=== PATIENT | female | born 1955 | race Two or more races ===

== ENCOUNTER 2020-03-29 09:15 | Outpatient (REF) | payer MEDICARE, MEDICAID, SELFPAY ==
--- NOTE | 2020-03-29 09:14 | US_ITS ---
EXAMINATION: US THYROID CLINICAL INFORMATION: Nontoxic single thyroid nodule. COMPARISON: Ultrasound soft tissue head/neck thyroid dated 06/30/2019. TECHNIQUE: Linear transducer escobar-scale and color Doppler examination with attention to the region of the thyroid. FINDINGS: SIZE: Measurements of the thyroid lobes and nodules are given in sagittal, anteroposterior and transverse dimensions respectively. Right Thyroid Lobe: 5.5 x 2.0 x 2.0 cm, volume 11.5 mL. Previously 5.0 x 2.2 x 1.9 cm, volume 10.9 mL. Parenchyma: The gland echotexture is homogeneous. Thyroid vascularity is normal. Left Thyroid Lobe: 5.5 x 1.4 x 1.8 cm, volume 7.2 mL. Previously 5.0 x 1.8 x 1.5 cm, volume 7.1 mL. Parenchyma: The gland echotexture is homogeneous. Thyroid vascularity is normal. Isthmus: 0.4 cm in maximum AP dimension. Previously 0.5 cm. RIGHT THYROID LOBE: There are greater than 4 nodules seen. 1. Location: Middle. Size: 0.8 x 0.4 x 0.6 cm. Previous: 0.6 x 0.4 x 0.5 cm. Nodule characteristics: Cystic/hypoechoic with smooth margins, punctate calcifications, and peripheral blood flow. This likely corresponds to a colloid cyst 2. Location: Middle. Size: 1.9 x 1.4 x 1.5 cm. Previous: 1.8 x 1.3 x 1.4 cm. Nodule characteristics: Large, primarily cystic nodule with smooth margins and no internal blood flow. There is a complex mural component along the medial/anterior wall. 3. Location: Inferior. Size: 0.6 x 0.5 x 0.6 cm. Previous: 0.6 x 0.5 x 0.5 cm. Nodule characteristics: Colloid cyst with smooth margins, chondroid type calcifications, and no internal blood flow.. 4. Location: Inferior/medial. Size: 0.6 x 0.5 x 0.5 cm. Previous: 0.6 x 0.5 x 0.5 cm. Nodule characteristics: Colloid cyst with smooth margins, no internal blood flow, and punctate. Colloid type seconds ISTHMUS: There is 1 nodule seen. 1. Location: Right inferior. Size: 1.1 x 0.6 x 0.8 cm. Previous: 1.0 x 0.5 x 0.9 cm. Nodule characteristics: Hypoechoic with smooth margins and internal blood flow on color Doppler. LEFT THYROID LOBE: There are greater than 4 nodules seen. 1. Location: Superior. Size: 0.7 x 0.4 x 0.4 cm. Previous: 0.7 x 0.5 x 0.6 cm. Nodule characteristics: Simple cyst/anechoic with smooth margins and no internal blood flow.. 2. Location: Superior. Size: 0.7 x 0.4 x 0.6 cm. Previous: 0.7 x 0.4 x 0.6 cm. Nodule characteristics: Spongiform type nodule with a mixed cystic and solid appearance, hypoechoic, with smooth margins and peripheral blood flow. 3. Location: Superior/middle. Size: 1.1 x 0.7 x 0.9 cm. Previous: 0.9 x 0.6 x 0.9 cm. Nodule characteristics: Hypoechoic with small internal cystic foci, smooth margins, and peripheral blood flow.. 4. Location: Inferior. Size: 0.6 x 0.3 x 0.4 cm. Previous: 0.5 x 0.3 x 0.4 cm. Nodule characteristics: Hypoechoic/complex with smooth margins and internal blood flow on color Doppler.. NODES: A lymph node is noted just inferior to the isthmus, measuring 9 mm in greatest transverse dimension, within normal limits.. IMPRESSION: Multinodular goiter. Most nodules have the appearance of colloid cysts and are not significantly changed in size. The 1.1 cm hypoechoic nodule in the superior/interpolar region of the left gland is increased in size from prior (0.9 cm) meets criteria for recommendation of fine-needle aspiration. Various management parameters for solitary thyroid nodules are in the literature. According to the latest 2016 [place] [employer] guidelines, recommendations for thyroid nodules are as follows: Benign: Purely cystic nodules (no solid component). Estimated risk of malignancy < 1%. Recommendation: No biopsy or ultrasound follow up required. Very low suspicion: Spongiform or partially cystic nodules without any of the sonographic features described in low, intermediate or high suspicions patterns. Estimated risk of malignancy < 3%. Recommendation: Consider FNA at > 2 cm. Observation without FNA is also a reasonable option. Recommend repeat ultrasound in 24 months for nodules measuring greater than 1 cm. Nodule measuring less than 1 cm do not require ultrasound follow up. Low suspicion: Isoechoic or hyperechoic solid nodule, or partially cystic nodule with eccentric solid areas, without microcalcification, irregular margin or extrathyroidal extension, or taller than wide shape. Estimated risk of malignancy 5-10%. Recommendation: FNA at > 1.5 cm. Recommend repeat ultrasound in 12-24 months for nodules measuring less than 1.5 cm. Intermediate suspicion: Hypoechoic solid nodule with smooth margins without microcalcification, extrathyroidal extension, or taller than wide shape. Estimated risk of malignancy 10-20%. Recommendation: FNA at > 1 cm. Recommend repeat ultrasound in 12-24 months for nodules measuring less than 1 cm.
== END 2020-03-29 09:16 | disposition home or self-care (01) ==
LOC: HO.US 09:15
PROVIDERS: Visit Provider Nurse Practitioner Primary Care
DX: E04.1 Nontoxic single thyroid nodule (principal)
CPT/HCPCS: 76536

== ENCOUNTER 2020-04-07 14:02 | Emergency (ER) | payer MEDICARE, MEDICAID, SELFPAY ==
--- NOTE | 2020-04-07 14:15 | XR_ITS ---
EXAMINATION: XR ANKLE, LEFT XR FOOT, LEFT CLINICAL INFORMATION: Pain status post fall COMPARISON: Left foot radiograph 11/12/2006 TECHNIQUE: 3 views of the left ankle and left foot combined on 5 images. FINDINGS: Left ankle: Multiple wire fragments are seen at the level of the Achilles tendon. The ankle mortise is symmetric. Without fracture or dislocation seen. Left foot: Posterior and plantar calcaneal spurs are demonstrated. There are hypertrophic changes seen at the dorsum of the midfoot. No definite fracture is seen. A small avulsion fracture would be difficult to exclude. Increased hallux valgus is seen at the first digit with mild degenerative change. Moderate soft tissue swelling medial to the first MTP joint. IMPRESSION: 1. Unremarkable left ankle. 2. Moderate soft tissue swelling dorsal to the midfoot. A subtle avulsion fracture would be difficult to exclude on the basis of this study. 3. Increased hallux valgus and bunion formation at the first MTP joint with soft tissue swelling.
[2020-04-07 14:22] VITALS: PULSE 81; RESP 16; TEMP 36.8; O2SAT 97; BMI 30.2
--- NOTE | 2020-04-07 14:35 | ED_ITS ---
HPI - Extremity Injury (Lower) General Chief Complaint: Extremity Injury, Lower Stated Complaint: fall Time Seen by Provider: 04/07/20 14:14 Source: patient Mode of arrival: ambulatory Limitations: no limitations History of Present Illness HPI Narrative: pain in bruising to the top of the left foot with slight swel ling to the ankle since yesterday after falling. States she missed a step and fell forward onto it. There was no other injury. No prodromal symptoms. No knee hip torso neck head injury. MD complaint: ankle injury Onset (ago): day(s) Place: home Severity: moderate Relieving factors: immobilization Exacerbating factors: nothing Other symptoms: none Related Data Allergies Allergy/AdvReac Type Severity Reaction Status Date / Time cyclobenzaprine Allergy Unknown Rash Verified 04/07/20 14:27 ibuprofen [From Motrin] Allergy Unknown RASH Unverified 03/08/20 17:00 lisinopril [LISINOPRIL] Allergy Unknown COUGH, Unverified 03/08/20 17:00 coughing Flexeril Allergy Unknown Rash Uncoded 04/07/20 14:27 From FLEXERIL Allergy Unknown FELT SICK Uncoded 03/08/20 17:00 - LEGS WEAK,BLOODY URINE Review of Systems Review of Systems: Constitutional: No Weight loss, No Fever, No Chills, No Night Sweats, No Fatigue, No Malaise ENT/Mouth: No Hearing loss, No Ear Pain, No Nasal Congestion, No Sinus Pain, No Hoarseness, No sore throat, No Rhinorrhea, No Swallowing Difficulty Eyes: No Eye Pain, No Swelling, No Redness, No Foreign Body, No Discharge, No Vision Changes Cardiovascular: No Chest Pain, No SOB, No Dyspnea on Exertion, No Orthopnea, No Edema, No Palpitations Respiratory: No Cough, No Sputum, No Wheezing, No Dyspnea Gastrointestinal: Genitourinary: no irregular bleeding, No Dysuria, No Urinary Frequency, No Hematuria, No Urinary Incontinence, No Urgency, No Flank Pain, No Urinary Flow Changes, No Hesitancy Musculoskeletal: No joint pain, No Myalgias, No Joint Swelling as noted per HPI Skin: No Skin Lesions, No rash Neuro: No Weakness, No Numbness, No Paresthesias, No Loss of Consciousness, No Dizziness, No Headache Psych: No Social Issues Heme/Lymph: No Bruising, No Bleeding,No Lymphadenopathy Endocrine: No Polyuria, No Polydipsia, No Temperature Intolerance Yes all other systems are reviewed and are negative [facility] Past Medical History Attestation statement: The following information was validated with the patient. Medical History (Updated 04/07/20 @ 15:06 by Leonardo Ambrose NP) No known health problems Social History Social History Advance Directives: No Advance Directives Information Provided: Yes Physical Exam Vital Signs: Vital Signs: Vital Signs Temp Pulse Resp Pulse Ox 04/07/20 14:22 98.2 F 81 16 97 Body Mass Index 30.2 Reviewed Const: General: cooperative and healthy appearing; No acute distress or intoxicated appearing Nutritional Appearance: average body habitus Orientation/consciousness: patient oriented x3 HENMT: Head: Yes normal to inspection Ears: hearing grossly normal bilaterally Chest: Chest palpation & inspection: normal inspection of the chest Resp: Effort & Inspection: normal respiratory effort Cardio: Jugular venous distension: no JVD : General: Yes no CVA tenderness Back/Spine/Pelvis: Back: no CVA tenderness Skin: General skin exam: no rashes or lesions noted Neuro: General: patient oriented x3 Extrem: General: Yes normal to inspection Ankle/foot/toe images: 1. Slight swelling/ecchymosis Procedures Orthopedic Splinting/Casting Injury #1: Side: left Lower Extremity Injury Location: foot Lower Extremity Immobilizer: post-op shoe ( orthopedic shoe) Additional Comments: patient has her own cane MDM - Extremity Injury (Lower) Differential Diagnosis Differential diagnosis: Likely ankle sprain and strain and ankle fracture ( foot fracture, contusion); Unlikely acute internal derangement of knee, fracture of femur, fracture of hip and puncture wound of foot Imaging Data foot/ankle x-ray: Radiologist's impression: [place] [id number] XRay Report Signed Patient: Rickey Irwin#: [id number] : 5Acct:[id number] Age/Sex: 64 / FADM Date: 04/07/20 Loc: HO.ED Attending Dr: Ordering Physician: Leonardo Ambrose NP Date of Service: 04/07/20 Procedure(s): XR ankle LT min 3V Accession Number(s): [id number] cc: Leonardo Ambrose NP~ EXAMINATION: XR ANKLE, LEFT XR FOOT, LEFT CLINICAL INFORMATION: Pain status post fall COMPARISON: Left foot radiograph 11/12/2006 TECHNIQUE: 3 views of the left ankle and left foot combined on 5 images. FINDINGS: Left ankle: Multiple wire fragments are seen at the level of the Achilles tendon. The ankle mortise is symmetric. Without fracture or dislocation seen. Left foot: Posterior and plantar calcaneal spurs are demonstrated. There are hypertrophic changes seen at the dorsum of the midfoot. No definite fracture is seen. A small avulsion fracture would be difficult to exclude. Increased hallux valgus is seen at the first digit with mild degenerative change. Moderate soft tissue swelling medial to the first MTP joint. IMPRESSION: 1. Unremarkable left ankle. 2. Moderate soft tissue swelling dorsal to the midfoot. A subtle avulsion fracture would be difficult to exclude on the basis of this study. 3. Increased hallux valgus and bunion formation at the first MTP joint with soft tissue swelling. Dictated By:MARGRET DIAZ MD Signed By:<Electronically signed by MARGRET DIAZ MD in OV>04/07/20 1450 DD/ 1415 TD/TT: Platen Drier Operator: DM Discharge Plan Discharge Clinical Impression: Foot fracture, left Qualifiers: Encounter type: initial encounter Fracture type: closed Qualified Code(s): S92.902A - Unspecified fracture of left foot, initial encounter for closed fracture Patient Disposition: Home, Self-Care Instructions: Foot Fracture in Adults (ED) Additional Instructions: where orthopedic device as reviewed; can remove at night and to shower /ADL. No strenuous activity Follow-up with Orthopedics or primary care doctor for repeat x-ray in 1 week Return if any concerns or worsening symptoms Ice, elevate, cold compresses Referrals: Anahi Kilgore NP [Primary Care Provider] - 1 week Cindy Pruitt MD [Physician] - 1 week
== END 2020-04-07 15:28 | disposition home or self-care (01) ==
PROVIDERS: Emergency Provider Emergency Medicine; PCP Nurse Practitioner Family
DX: S92.902A Unspecified fracture of left foot, initial encounter for closed fracture (principal); X50.1XXA Overexertion from prolonged static or awkward postures, initial encounter; Y93.01 Activity, walking, marching and hiking; Y92.480 Sidewalk as the place of occurrence of the external cause; Y99.9 Unspecified external cause status
CPT/HCPCS: 73610; 73630; 99283

== ENCOUNTER 2020-04-11 09:35 | Outpatient (REF) | payer MEDICARE, MEDICAID, SELFPAY ==
[2020-04-11 12:19] LABS: Cholesterol 143 mg/dL; HDL Cholesterol 54 mg/dL; LDL Cholesterol Calculated 71 mg/dl; Triglycerides 90 mg/dL
== END 2020-04-11 09:36 | disposition home or self-care (01) ==
LOC: HO.LAB 09:35
PROVIDERS: Absent Provider Internal Medicine Cardiovascular Disease; PCP Nurse Practitioner Family; Visit Provider Internal Medicine Pulmonary Disease
DX: J44.9 Chronic obstructive pulmonary disease, unspecified (principal); I27.20 Pulmonary hypertension, unspecified; Z87.891 Personal history of nicotine dependence
CPT/HCPCS: 80061; 99204

== ENCOUNTER → 2020-04-17 12:01 | Outpatient (BNVA) | payer MEDICARE, MEDICAID, SELFPAY | PROVIDERS: PCP Nurse Practitioner Family; Visit Provider Physician Assistant | DX: M79.672 Pain in left foot (principal) | CPT/HCPCS: 99212 ==

== ENCOUNTER 2020-04-19 09:39 | Outpatient (REF) | payer MEDICARE, MEDICAID, SELFPAY | END 2020-04-19 09:40 | disposition home or self-care (01) | LOC: HO.RESP 09:39 | PROVIDERS: Visit Provider Internal Medicine Pulmonary Disease | DX: J44.9 Chronic obstructive pulmonary disease, unspecified (principal) ==

== ENCOUNTER → 2020-04-27 09:38 | Outpatient (BNVA) | payer MEDICARE, MEDICAID, SELFPAY | PROVIDERS: PCP Nurse Practitioner Family; Visit Provider Internal Medicine Pulmonary Disease | DX: J45.30 Mild persistent asthma, uncomplicated (principal); I27.20 Pulmonary hypertension, unspecified | CPT/HCPCS: 99212 ==

== ENCOUNTER 2020-05-15 09:32 | Outpatient (REF) | payer MEDICARE, MEDICAID, SELFPAY ==
--- NOTE | 2020-05-15 | MM_ITS ---
EXAMINATION: MM SCREENING DIGITAL BREAST TOMOSYNTHESIS, BILATERAL CLINICAL INFORMATION: Screening. Asymptomatic. The lifetime risk of breast cancer based on the Tyrer-Cuzick Model is 5%. COMPARISON: Mammography: 07/12/2019, 05/10/2019, 05/07/2018, 05/01/2017 TECHNIQUE: Digital breast tomosynthesis is performed in both the craniocaudal and mediolateral oblique views along with computer-aided detection (CAD). Synthesized 2D images are generated from the tomosynthesis. Additional right CC view is provided. FINDINGS: There are scattered areas of fibroglandular density (ACR BI-RADS breast composition Category b). There are no significant masses, abnormal calcifications, or other abnormalities. Small nodular asymmetry central right breast is similar to 2017. Again, there are scattered bilateral benign round and rim and dermal calcifications. No significant changes. MM/MM tomosynthesis screening BI IMPRESSION: No mammographic evidence of malignancy. ASSESSMENT: BI-RADS 2: Benign RECOMMENDATION: Routine annual mammography screening. This patient's information was entered into a reminder system with a target due date for their next mammogram.
== END 2020-05-15 09:33 | disposition home or self-care (01) ==
LOC: HO.MAMMO 09:32
PROVIDERS: Visit Provider Nurse Practitioner Family
DX: Z12.31 Encounter for screening mammogram for malignant neoplasm of breast (principal)
CPT/HCPCS: 77063; 77067

== ENCOUNTER → 2020-05-24 09:45 | Outpatient (REF) | payer MEDICARE, MEDICAID, SELFPAY ==
--- NOTE | 2020-05-24 09:48 | CA_ITS ---
Transthoracic Echocardiogram Patient (Last, First, Middle): Alison Irwin, Gender: Female Date of : 1955 Age: 64 Procedure Date: 05/24/2020 Procedure Type: Transthoracic Echocardiogram Location: OP Height: 152.4 cm Weight: 70.31 kg BSA: 1.67 m2 Heart Rate: bpm BP: 141 / 76 mmHg Ehs Specialist: Onel MD: Saravanan Arevalo MD Proposal Manager: Josias Morgan MD Symptoms: I27.20 - Pulmonary hypertension, unspecified Study Quality: Good ECG Rhythm: Sinus Conclusions: - 1. Normal LV systolic function with grade 1 diastolic dysfunction 2. Normal cardiac valvular Doppler 3. Normal RV systolic pressure with no evidence of pulmonary hypertension on this study 4. No pericardial effusion Findings Left Ventricle Normal left ventricular size, thickness, and systolic function. The visually estimated ejection fraction is between 55-60%. Spectral Doppler is indicative of an impaired relaxation filling pattern. E/E prime ratio is <8, consistent with normal filling pressures. Evidence suggests grade I (mild) diastolic dysfunction. Right Ventricle Normal right ventricular cavity size and systolic function. Atria Both atria are normal in size. There is no evidence of interatrial shunt. Aortic Valve Normal aortic valve structure and function. There is no aortic valve stenosis. There is no aortic valve regurgitation. Mitral Valve Normal mitral valve structure and function. There is trace mitral valve regurgitation. There is no mitral valve stenosis. Pulmonic Valve The pulmonic valve is likely normal. Tricuspid Valve Normal tricuspid valve structure. There is trace tricuspid valve regurgitation. The right ventricular systolic pressure is normal. Normal right atrial pressure. There is no evidence of pulmonary hypertension. Great Vessels All visible segments of the aorta are normal in size. The pulmonary artery was not well visualized. Venous The inferior vena cava is normal in size and collapses greater than 50% with inspiration. Pericardium/Pleural There is no evidence of pericardial effusion. Prior Study Comparison No prior study available for comparison. Measurements 2D Linear Measurements RVIDd: 3.07 RVIDd Index: 1.84 IVSd: 1.01 0.6-0.9/0.6-1.0 cm LVIDd: 4.81 3.9-5.3/4.2-5.9 cm LVIDd Index: 2.88 2.4-3.2/2.2-3.1 cm/m2 LVIDs: 2.73 2.0-3.6 cm LVPWd: 0.93 0.7-1.1 cm Ao Root: 2.90 2.1-3.5 cm LA Diam: 3.40 2.7-3.8/3.0-4.0 cm LAIDs Index: 2.04 1.5-2.3 cm/m2 LV Mass: 204.25 67-162/88-224 g LV Mass Index: 122.31 43-95/49-115 g/m2 LVOT Diam: 2.00 3.0+(-)1.3 cm 2D Systolic Function EF 4C: 54.40 >55% EF 2C: 63.60 >55% EF BiP: 59.10 >55% Mitral Valve MV Pk E: 0.76 MV PK A: 0.53 MV Decel Time: 227.00 E/A: 1.40 E'Lateral: 10.30 E'Medial: 5.33 E/E' Med: 14.20 E/E' Lat: 7.40 Aortic Valve AoV Pk Kings: 1.62 AoV Mn Kings: 1.10 AoV VTI: 0.34 AoV Pk Grad: 10.00 Aov Mn Grad: 5.00 SATHYA Cont.VTI: 2.37 LVOT LVOT Pk Kings: 1.07 LVOT Mn Kings: 0.74 LVOT VTI: 0.25 LVOT Pk Grad: 5.00 LVOT Mn Grad: 2.00 LVOT Diam: 2.00 LVOT Area: 3.14 Diastolic Function MV Pk E: 0.76 MV Pk A: 0.53 E/A: 1.40 E'Medial: 5.33 E/E' Med: 14.20 E' Laterial: 10.30 E/E' Lat: 7.40 Tricuspid Valve TR Pk Kings: 2.74 TR Pk Grad: 30.00 RA Press: 3.00 RVSP: 33.00 Great Vessels Aorta Ao Root-2D: 2.90 2.0-3.7 cm Ao Asc: 3.40 2.1-3.4 cm Ao Arch: 2.20 Updated in Other Vendor System with Status of Final Josias Morgan MD electronically signed on 05/25/2020 4:15:22 PM with status of Final
== END ==
LOC: HO.CARD 09:45
PROVIDERS: PCP Nurse Practitioner Family; Visit Provider Internal Medicine Pulmonary Disease
DX: I27.20 Pulmonary hypertension, unspecified (principal)
CPT/HCPCS: 93306

== ENCOUNTER → 2020-05-31 09:12 | Outpatient (BNVA) | payer MEDICARE, MEDICAID, SELFPAY | PROVIDERS: PCP Nurse Practitioner Family; Visit Provider Internal Medicine Pulmonary Disease | DX: J45.30 Mild persistent asthma, uncomplicated (principal) | CPT/HCPCS: 99212 ==

== ENCOUNTER → 2020-06-06 09:09 | Outpatient (BNV) | payer MEDICARE, MEDICAID, SELFPAY | PROVIDERS: PCP Nurse Practitioner Family; Visit Provider Internal Medicine | DX: Z86.711 Personal history of pulmonary embolism (principal); Z79.01 Long term (current) use of anticoagulants | CPT/HCPCS: 99213; 99214; 99442; G2211 ==

== ENCOUNTER → 2020-06-21 08:35 | Outpatient (BNVA) | payer MEDICARE, MEDICAID, SELFPAY | PROVIDERS: PCP Nurse Practitioner Family; Referring Provider Nurse Practitioner Family; Visit Provider Internal Medicine | DX: E04.2 Nontoxic multinodular goiter (principal); E83.52 Hypercalcemia; E55.9 Vitamin D deficiency, unspecified | CPT/HCPCS: Q3014 ==

== ENCOUNTER 2020-06-25 12:53 | Outpatient (REF) | payer MEDICARE, MEDICAID, SELFPAY ==
[2020-06-25 14:39] LABS: Albumin Level 4.4 g/dL (3.5-5.0); Calcium 9.3 mg/dL (8.4-10.2); Estimated Glomerular Filt Rate > 60; Phosphorus 4.1 mg/dL (2.7-4.5)
[2020-06-25 14:51] LABS: Free T4 (Free Thyroxine) 0.94 ng/dL (0.71-1.85); Thyroid Stimulating Hormone 0.52 uIU/mL (0.32-4.0); Vitamin D 25-OH Total 35.1 ng/mL (>30)
[2020-06-26 07:57] LABS: Triiodothyronine T3 Total 135 ng/dL (76-181)
[2020-06-26 17:43] LABS: Calcium (PTHI) 9.6 mg/dL (8.6-10.4); PTHI 30 pg/mL (14-64)
== END 2020-06-25 12:54 | disposition home or self-care (01) ==
LOC: HO.LAB 12:53
PROVIDERS: PCP Nurse Practitioner Family; Visit Provider Internal Medicine
DX: E04.2 Nontoxic multinodular goiter (principal); E83.52 Hypercalcemia; E55.9 Vitamin D deficiency, unspecified
CPT/HCPCS: 36415; 82040; 82306; 82310; 82565; 83970; 84100; 84439; 84443; 84480

== ENCOUNTER 2020-08-04 09:26 | Outpatient (REF) | payer MEDICARE, MEDICAID, SELFPAY ==
[2020-08-04 10:55] LABS: Vitamin D 25-OH Total 37.6 ng/mL (>30)
== END 2020-08-04 09:27 | disposition home or self-care (01) ==
LOC: HO.LAB 09:26
PROVIDERS: PCP Nurse Practitioner Family; Visit Provider Nurse Practitioner Family
DX: E55.9 Vitamin D deficiency, unspecified (principal)
CPT/HCPCS: 36415; 82306

== ENCOUNTER 2020-08-09 09:32 | Outpatient (REF) | payer MEDICARE, MEDICAID, SELFPAY ==
--- NOTE | 2020-08-09 10:46 | P.BOP_ITS ---
Brief Operative Note Date of Service: 08/09/20 Surgeon: Ruby Roque, DO This is doctor Ruby Roque. This is an ultrasound-guided fine-needle aspiration report. Date of Examination: 08/09/2020 Indication: Multinodular Thyroid Porcedure: Procedure was explained to the patient. Alternatives, the risk and benefits were discussed. Written consent was obtained. A time-out was also obtained. After sterile preparation, fine-needle aspiration of a Right mid pole 1.8 cm thyroid nodule was performed using direct ultrasound guidance to confirm accurate needle placement. Six aspirations were made using 27 gauge needles. Samples were submitted for cytology. 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 Our attention was then turned to an Isthmus 1.0 cm thyroid nodule. Fine-needle aspiration of this was performed using direct ultrasound guidance to confirm a ccurate needle placement. Six aspirations were made using 27 gauge needles. Samples were submitted for cytology. 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 The patient tolerated the procedure well. Aftercare instructions were provided.The patient tolerated the procedure well. Aftercare instructions were provided. Impression: Uncomplicated fine needle aspiration biopsy of a Right mid pole 1.8 cm thyroid nodule and an Isthmus 1.0 cm thyroid nodule under ultrasound guidance. Estimated blood loss (mL): 0
[2020-08-09] MEDS: Lidocaine HCl 1 % MPF 5 ML VIAL SUBCUT (11:30)
== END 2020-08-09 09:33 | disposition home or self-care (01) ==
LOC: HO.US 09:32
PROVIDERS: Visit Provider Internal Medicine
DX: E04.2 Nontoxic multinodular goiter (principal)
CPT/HCPCS: 10005; 10006; 88172; 88173; 88177

== ENCOUNTER 2020-08-24 09:12 | Outpatient (REF) | payer MEDICARE, MEDICAID, SELFPAY ==
[2020-08-24 09:45] LABS: MANUAL DIFF FLAG NO
[2020-08-24 09:48] LABS: Glucose Urine UA NEG (NEG); Leukocyte Esterase Urine NEG (NEG); Nitrite Urine NEG (NEG); Urine Blood NEG (NEG); Urine Ketones NEG (NEG); Urine Protein NEG (NEG-TRACE)
[2020-08-24 09:50] LABS: Appearance Urine CLEAR; Color Urine YELLOW
[2020-08-24 09:52] LABS: Basophils Percent Auto 0.5 % (0-2); Eosinophils Absolute Auto 0.1 X10*3/uL (0.0-0.4); Eosinophils Percent Auto 0.9 % (0-4); Hematocrit 38.8 % (37-47); Hemoglobin 13.1 g/dl (12.0-16.0); Imm Gran Abs Auto 0.01 X10*3/uL (0.00-0.03); Imm Gran Pct Auto 0.2 % (0.0-0.4); Lymphocytes Percent Auto 33.6 % (20-40); Mean Corpuscular HGB Conc 33.8 g/dl (31.0-35.0); Mean Corpuscular Hemoglobin 30.9 pg (27.0-33.0); Mean Corpuscular Volume 91.5 fL (80-98); Mean Platelet Volume 11.3 fL (9.4-12.3); Monocytes Absolute Auto 0.5 X10*3/uL (0.1-1.2); Monocytes Percent Auto 8.4 % (2-11); Neutrophils Absolute Auto 3.3 X10*3/uL (2.0-8.3); Neutrophils Percent Auto 56.4 % (45-73); Platelet Count 273 X10*3/uL (160-400); Red Blood Count 4.24 X10*6/uL (4.20-5.50); White Blood Count 5.8 X10*3/uL (4.8-10.8)
[2020-08-24 09:56] LABS: RBC Urine 0 /HPF (0); Squamous Epithelial Cell Urine TRACE /LPF; WBC Urine 0 /HPF (0-4)
[2020-08-24 10:16] LABS: Alanine Aminotransferase 16 U/L (0-31); Albumin Level 4.5 g/dL (3.5-5.0); Alkaline Phosphatase 39 U/L (39-117); Anion Gap 15 (12-20); Aspartate Amino Transferase 21 U/L (5-31); Bilirubin Total 0.4 mg/dL (0.0-1.0); Blood Urea Nitrogen 16 mg/dL (9-16); Calcium 9.3 mg/dL (8.4-10.2); Carbon Dioxide 26 mmol/L (22-29); Chloride 103 mmol/L (96-108); Estimated Glomerular Filt Rate > 60; Glucose Random 92 mg/dL (60-115); Potassium 3.6 mmol/L (3.3-5.1); Sodium 140 mmol/L (135-145); Total Protein 7.2 g/dL (6.5-8.0)
[2020-08-25 15:22] LABS: HIV RNA PCR Qn Copies 60 copies/mL (NOT DETECTED); HIV RNA PCR Qn Log Copies 1.78 (NOT DETECTED)
[2020-08-27 13:47] LABS: Absolute CD3 Count 1731 cells/uL (840-3060); Absolute CD4 Count 850 cells/uL (490-1740); Absolute CD8 Count 909 cells/uL (180-1170); Absolute Lymphocytes 2042 cells/uL (850-3900); CD4 CD8 Ratio 0.93 (0.86-5.00); Percent CD3 Cells 85 % (57-85); Percent CD4 Cells 42 % (30-61); Percent CD8 Cells 45 % (12-42)
== END 2020-08-24 09:13 | disposition home or self-care (01) ==
LOC: HO.LAB 09:12
PROVIDERS: PCP Nurse Practitioner; Visit Provider Internal Medicine
DX: B20 Human immunodeficiency virus [HIV] disease (principal)
CPT/HCPCS: 36415; 80053; 81001; 85025; 86359; 86360; 87536

== ENCOUNTER 2020-08-27 08:17 | Outpatient (REF) | payer MEDICARE, MEDICAID, SELFPAY | END 2020-08-27 08:18 | disposition home or self-care (01) | LOC: HO.LAB 08:17 | PROVIDERS: Visit Provider Internal Medicine | DX: Z20.822 Contact with and (suspected) exposure to COVID-19 (principal) | CPT/HCPCS: 36415; C9803; U0003; U0005 ==

== ENCOUNTER → 2020-08-29 13:22 | Outpatient (BNVA) | payer MEDICARE, MEDICAID, SELFPAY | PROVIDERS: PCP Nurse Practitioner; Visit Provider Student in an Organized Health Care Education/Training Program | DX: M79.7 Fibromyalgia (principal); Z79.899 Other long term (current) drug therapy | CPT/HCPCS: 99212 ==

== ENCOUNTER 2020-09-17 18:38 | Emergency (ER) | payer MEDICARE, MEDICAID, SELFPAY ==
[2020-09-17 19:37] VITALS: BP 175/71; PULSE 78; RESP 16; TEMP 36.7; O2SAT 98; BMI 30.8
[2020-09-17 22:03] VITALS: BP 178/83; PULSE 67; RESP 16; TEMP 36.2; O2SAT 98
--- NOTE | 2020-09-17 22:47 | ECG_ITS ---
Test Reason : Palpitations Blood Pressure : / mmHG Vent. Rate : 060 BPM Atrial Rate : 060 BPM P-R Int : 146 ms QRS Dur : 084 ms QT Int : 434 ms P-R-T Axes : 043 010 012 degrees QTc Int : 434 ms Normal sinus rhythm Normal ECG When compared with ECG of 21-NOV-2019 10:05, No significant change was found Referred By: Jagruti Moraes Electronically Signed By:Juno Sarmiento
--- NOTE | 2020-09-17 22:47 | ED_ITS ---
HPI - General Adult General Chief complaint: General Medical Stated complaint: reaction to covid vaccine Time Seen by Provider: 09/17/20 22:34 Source: patient Mode of arrival: ambulatory Limitations: no limitations History of Present Illness HPI narrative: 65-year-old female presents with suspected adverse reaction from a COVID-19 vaccine that she received earlier today. She states that she has a pinching feeling throughout her nose and mouth, and had an episode of palpitations earlier today. She did take some Benadryl earlier today at 6:00 p.m., states that it helped her with the pinching feeling in her mouth. She no longer has palpitations, denies ever having chest pain or pressure, diaphoresis, shortness of breath, shortness of breath on exertion, dizziness, lightheadedness, nausea, vomiting, abdominal pain, abdominal distention, dysuria, hematuria, fevers or chills. Onset (ago): hour(s) (Within the hour of arrival) Severity: mild Severity scale (1-10): 2 Quality: stabbing Pain Consistency: intermittent Relieving factors: other (Benadryl) Associated symptoms: denies other symptoms Treatments prior to arrival: other (COVID-19 vaccine) Related Data Home Medications Medication Instructions Recorded Confirmed acetaminophen 500 mg tablet [id number] mg PO Q8H PRN 04/11/20 09/04/20 albuterol sulfate 90 mcg/actuation 2 puff PO Q4-6H PRN 04/11/20 09/04/20 aerosol inhaler atorvastatin 20 mg tablet 20 mg PO DAILY 04/11/20 09/04/20 bupropion HCl 150 mg tablet,12 hr 150 mg PO BID 04/11/20 09/04/20 sustained-release cetirizine 10 mg capsule 10 mg PO DAILY 04/11/20 09/04/20 clonazepam 0.5 mg tablet 0.5 mg PO DAILY 04/11/20 09/04/20 docusate sodium 100 mg capsule 100 mg PO DAILY 04/11/20 09/04/20 dolutegravir 50 mg tablet 50 mg PO DAILY 04/11/20 09/04/20 ergocalciferol (vitamin D2) 1,250 1,250 mcg PO DAILY 04/11/20 09/04/20 mcg (50,000 unit) capsule fenofibrate micronized 67 mg 67 mg PO DAILY 04/11/20 09/04/20 capsule hydrochlorothiazide 25 mg tablet 25 mg PO DAILY 04/11/20 09/04/20 losartan 100 mg tablet 50 mg PO DAILY tab 04/11/20 09/04/20 multivitamin-ferrous 1 tab PO DAILY 04/11/20 09/04/20 fumarate-folic acid 18 mg-400 mcg tablet omeprazole 20 mg capsule,delayed 20 mg PO BID 04/11/20 09/04/20 release prednisone 10 mg tablet 10 mg PO DAILY PRN 04/11/20 09/04/20 pregabalin 200 mg capsule 200 mg PO DAILY 04/11/20 09/04/20 simethicone 80 mg chewable tablet 80 mg PO BID PRN 04/11/20 09/04/20 zolpidem 10 mg tablet 10 mg PO BEDTIME PRN 04/11/20 09/04/20 emtricitabine 200 mg-tenofovir 1 tab PO DAILY 06/21/20 09/04/20 alafenamide fumarate 25 mg tablet fluticasone propionate 50 50 mcg INTRANASAL DAILY 06/21/20 09/04/20 mcg/actuation nasal spray,suspension Previous Rx's Medication Instructions Recorded fluticasone propionate 44 2 puff PO BID 30 Days #1 ea 05/31/20 mcg/actuation HFA aerosol inhaler mirabegron 50 mg tablet,extended 50 mg PO DAILY 90 Days #90 tab 07/20/20 release 24 hr tramadol 50 mg tablet 50 mg PO TID PRN #90 tab 08/29/20 apixaban [Eliquis] 2.5 mg PO BID #60 tab 09/04/20 Allergies Allergy/AdvReac Type Severity Reaction Status Date / Time fluticasone Allergy Intermediate Swelling Verified 08/29/20 13:27 [From Advair Diskus] salmeterol Allergy Intermediate Swelling Verified 08/29/20 13:27 [From Advair Diskus] cyclobenzaprine Allergy Unknown Rash Verified 08/29/20 13:27 ibuprofen [From Motrin] Allergy Unknown RASH Verified 08/29/20 13:27 lisinopril [LISINOPRIL] Allergy Unknown COUGH, Verified 08/29/20 13:27 coughing Review of Systems Review of Systems: Constitutional: No Fever, No Chills ENT/Mouth: Pinching feeling in her mouth and nose, No Ear Pain, No Hoarseness, No sore throat Eyes: No Eye Pain, No Swelling, No Redness, No Foreign Body Cardiovascular: 1 episode of palpitations, No Chest Pain, No SOB Respiratory: No Cough, No Dyspnea Gastrointestinal: No Nausea, No Vomiting, No Diarrhea, No abdominal Pain Genitourinary: No Dysuria, No Hematuria Musculoskeletal: No joint pain, No Myalgias, No Joint Swelling Skin: No Skin lacerations, No rash Neuro: No Weakness, No Numbness, No Paresthesias, No Loss of Consciousness, No Dizziness, No Headache Psych: No Anxiety/Panic, No Depression Heme/Lymph: no easy bruising, no Lymphadenopathy Endocrine: No Polyuria, No Polydipsia Yes all other systems are reviewed and are negative PMFSH Past Medical History Attestation statement: The following information was validated with the patient. Source: old records reviewed Medical History (Updated 09/18/20 @ 00:44 by Jagruti Mroaes NP) COVID-19 HIV (human immunodeficiency virus infection) HTN (hypertension) Hypercalcemia Multinodular thyroid No known health problems Pulmonary embolism Vitamin D deficiency Surgical History Hx of appendectomy Hx of hysterectomy Hx of tubal ligation Family History Family History Father Thyroid cancer Mother Cirrhosis Hypertension Daughter Thyroid cancer Social History Social History Alcohol intake: never Smoking Status: Never smoker Years Smoked: 23 yrs Use of substances other than those prescribed or required for medical reasons: No Advance Directives: No Advance Directives Information Provided: Yes Physical Exam 2 Vital Signs: Vital Signs: Last Vital Signs Temp 97.2 F 09/17/20 22:03 Pulse 67 09/17/20 22:03 Resp 16 09/17/20 22:03 BP 178/83 H 09/17/20 22:03 Pulse Ox 98 09/17/20 22:03 Body Mass Index 30.8 Appearance: Alert. Oriented X3. No acute distress. Head: Normal external exam. Normocephalic. Atraumatic. No Mcdonald signs noted. No raccoon eyes noted Eyes: PERRLA. EOMI. Conjunctiva and sclera normal. Eyelids normal. ENT: TM's Normal. Pharynx normal. Uvula midline. Moist mucous membranes. No trismus noted. No drooling noted. No muffled voice noted. Neck: Normal inspection. Neck supple. No adenopathy. Thyroid Normal. No meningeal signs. No neck mass noted. CVS: Normal heart rate and rhythm. Heart sound normal. No murmurs noted. Pulses equal to all extremities. Respiratory: No respiratory distress. Painless inspiration. Breath sounds normal. No wheezes/rales/rhonchi noted. Chest nontender. No accessory muscle usage noted or decreased air movement noted. Abdomen: Soft and nontender. Bowel sounds normal in all 4 quadrants. No distention noted. No organomegaly noted. No visible injury noted. Back: No CVA tenderness. Full range of motion noted. Skin: Skin warm and dry. Normal skin color. Normal skin turgor. No rashes/lesions/lacerations noted. Extremities: No lower extremity edema. Extremities exhibit normal range of motion. Extremities nontender. Neuro: cranial nerves 2-12 intact, no focal neural deficits, strength 5/5 to all extremities, No motor deficit. No sensory deficit. Course Course Course Narrative: 65-year-old female presents with concern for adverse reaction after COVID vaccine. Because she has had an episode of palpitations, has a history of hypertension, hyperlipidemia and COPD we will rule out ACS. Patient states to feel better after taking Benadryl. EKG is normal sinus, CBC and Chem 7 are negative for acute findings, troponin is 4.1 which is considered negative, does not require repeat is under 5 the patient does not have any chest pain. These findings were discussed in detail with patient. Patient verbalized understanding of and agrees to plan of care discharge home. Medical Decision Making Differential Diagnosis Differential Diagnosis: Adverse drug reaction, ACS Medical Records Medical records reviewed: Yes I reviewed the patient's medical records. Lab Data Lab results reviewed: Yes I reviewed the patient's lab results. Result diagrams: 09/17/20 23:27 09/17/20 23:27 Labs: Lab Results 09/17/20 09/17/20 09/17/20 Range/Units 23:27 23:27 23:27 WBC 8.1 (4.8-10.8) X10*3/uL RBC 4.26 (4.20-5.50) X10*6/uL Hgb 13.4 (12.0-16.0) g/dl Hct 39.6 (37-47) % MCV 93.0 (80-98) fL MCH 31.5 (27.0-33.0) pg MCHC 33.8 (31.0-35.0) g/dl RDW 13.0 (11.0-16.0) % Plt Count 259 (160-400) X10*3/uL MPV 11.1 (9.4-12.3) fL Immature Gran % (Auto) 0.4 (0.0-0.4) % Neut % (Auto) 73.6 H (45-73) % Lymph % (Auto) 17.5 L (20-40) % Larue % (Auto) 6.8 (2-11) % Eos % (Auto) 1.2 (0-4) % Baso % (Auto) 0.5 (0-2) % Lymph # (Auto) 1.4 (1.2-4.9) X10*3/uL Larue # (Auto) 0.6 (0.1-1.2) X10*3/uL Eos # (Auto) 0.1 (0.0-0.4) X10*3/uL Baso # (Auto) 0.0 (0.0-0.2) X10*3/uL Abs Immat Gran (auto) 0.03 (0.00-0.03) X10*3/uL Absolute Neuts (auto) 5.9 (2.0-8.3) X10*3/uL Absolute Nucleated RBC 0.000 (0.0-0.012) X10*3/uL Nucleated RBC % (auto) 0.0 (0.0-0.2) /100WBC Sodium 140 (135-145) mmol/L Potassium 3.7 (3.3-5.1) mmol/L Chloride 101 (96-108) mmol/L Carbon Dioxide 28 (22-29) mmol/L Anion Gap 15 (12-20) BUN 17 H (9-16) mg/dL Creatinine 0.77 (0.5-1.4) mg/dL Estim Creat Clear Calc 64.3 Estimated GFR > 60 Random Glucose 141 H D (60-115) mg/dL Calcium 9.5 (8.4-10.2) mg/dL Troponin I High Sens 4.1 (<3.5-17.0) ng/L ECG Data Attestation: I personally reviewed and interpreted this ECG as follows: Interpretation: Ventricular rate 60 beats per minute, [place] 146, QRS 84, QT 434, QTC 434, normal sinus rhythm, normal EKG, prior EKGs unavailable secondary to System 130 error Date September 17, 2020, time 11:36 p.m. Discharge Plan Discharge Clinical Impression: Adverse reaction to vaccine Qualifiers: Encounter type: initial encounter Qualified Code(s): T50.Z95A - Adverse effect of other vaccines and biological substances, initial encounter Patient Disposition: Home, Self-Care Instructions: Normal Exam (ED) Additional Instructions: You were evaluated for palpitations and a pinching feeling throughout your nose and mouth after receiving the COVID-19 vaccine. Your lab values are normal, your EKG is normal, cardiac enzymes are normal. It is highly unlikely that this is an adverse event from the COVID-19 vaccine. Please follow-up with the primary care physician this week. Thank you for choosing this emergency department for evaluation. Please follow-up with primary care physician as needed. Return to the emergency department for any new, concerning, or worsening symptoms. Prescriptions: No Action mirabegron 50 mg tablet extended release 24 hr 50 mg PO DAILY 90 Days Qty: 90 RF: 0 Eliquis 2.5 mg Tablet 2.5 mg PO BID Qty: 60 RF: 3 fluticasone propionate 50 mcg/actuation spray,suspension 50 mcg intranasal DAILY RF: 0 Descovy 200-25 mg tablet 1 tab PO DAILY RF: 0 tramadol 50 mg tablet 50 mg PO TID PRN (Reason: pain) Qty: 90 RF: 5 pregabalin [Lyrica] 200 mg capsule 200 mg PO DAILY RF: 0 Zyrtec 10 mg capsule 10 mg PO DAILY RF: 0 fenofibrate micronized 67 mg capsule 67 mg PO DAILY RF: 0 acetaminophen 500 mg tablet [id number] mg PO Q8H PRN (Reason: Pain) RF: 0 zolpidem 10 mg tablet 10 mg PO BEDTIME PRN (Reason: Insomnia) RF: 0 ergocalciferol (vitamin D2) 1,250 mcg (50,000 unit) capsule 1,250 mcg PO DAILY RF: 0 omeprazole 20 mg capsule,delayed release(DR/EC) 20 mg PO BID RF: 0 losartan 100 mg tablet 50 mg PO DAILY RF: 0 Tivicay 50 mg tablet 50 mg PO DAILY RF: 0 clonazepam 0.5 mg tablet 0.5 mg PO DAILY RF: 0 atorvastatin 20 mg tablet 20 mg PO DAILY RF: 0 simethicone 80 mg tablet,chewable 80 mg PO BID PRN (Reason: Constipation) RF: 0 albuterol sulfate 90 mcg/actuation HFA aerosol inhaler 2 puff PO Q4-6H PRN (Reason: Wheezing) RF: 0 hydrochlorothiazide 25 mg tablet 25 mg PO DAILY RF: 0 docusate sodium 100 mg capsule 100 mg PO DAILY RF: 0 bupropion HCl 150 mg tablet sustained-release 12 hr 150 mg PO BID RF: 0 Cerovite Advanced Formula 18-400 mg-mcg tablet 1 tab PO DAILY RF: 0 prednisone 10 mg tablet 10 mg PO DAILY PRN (Reason: Wheezing) RF: 0 fluticasone propionate 44 mcg/actuation HFA aerosol inhaler 2 puff PO BID 30 Days Qty: 1 RF: 6 Interventions: ED Discharge Assessment Last Done: 09/18/20 00:59 Discharge Date/Time: 09/18/20 01:07
[2020-09-17 23:32] LABS: Basophils Percent Auto 0.5 % (0-2); Eosinophils Absolute Auto 0.1 X10*3/uL (0.0-0.4); Eosinophils Percent Auto 1.2 % (0-4); Hematocrit 39.6 % (37-47); Hemoglobin 13.4 g/dl (12.0-16.0); Imm Gran Abs Auto 0.03 X10*3/uL (0.00-0.03); Imm Gran Pct Auto 0.4 % (0.0-0.4); Lymphocytes Absolute Auto 1.4 X10*3/uL (1.2-4.9); Lymphocytes Percent Auto 17.5 % (20-40); MANUAL DIFF FLAG NO; Mean Corpuscular HGB Conc 33.8 g/dl (31.0-35.0); Mean Corpuscular Hemoglobin 31.5 pg (27.0-33.0); Mean Platelet Volume 11.1 fL (9.4-12.3); Monocytes Absolute Auto 0.6 X10*3/uL (0.1-1.2); Monocytes Percent Auto 6.8 % (2-11); Neutrophils Absolute Auto 5.9 X10*3/uL (2.0-8.3); Neutrophils Percent Auto 73.6 % (45-73); Platelet Count 259 X10*3/uL (160-400); Red Blood Count 4.26 X10*6/uL (4.20-5.50); White Blood Count 8.1 X10*3/uL (4.8-10.8)
[2020-09-17 23:58] LABS: Troponin-I High Sensitivity 4.1 ng/L (<3.5-17.0)
[2020-09-18 00:01] LABS: Anion Gap 15 (12-20); Blood Urea Nitrogen 17 mg/dL (9-16); Calcium 9.5 mg/dL (8.4-10.2); Carbon Dioxide 28 mmol/L (22-29); Chloride 101 mmol/L (96-108); Creatinine Clr Calc Pharmacy 64.3; Estimated Glomerular Filt Rate > 60; Glucose Random 141 mg/dL (60-115); Potassium 3.7 mmol/L (3.3-5.1); Sodium 140 mmol/L (135-145)
[2020-09-18] MEDS: diphenhydrAMINE HCL 25 MG TABLET 50 MG PO (01:04)
== END 2020-09-18 01:07 | disposition home or self-care (01) ==
PROVIDERS: Nurse Practitioner Family; Emergency Provider Emergency Medicine Emergency Medical Services
DX: R00.2 Palpitations (principal); T50.Z95A Adverse effect of other vaccines and biological substances, initial encounter; Y92.9 Unspecified place or not applicable; I10 Essential (primary) hypertension; E78.5 Hyperlipidemia, unspecified; J44.9 Chronic obstructive pulmonary disease, unspecified; Z21 Asymptomatic human immunodeficiency virus [HIV] infection status
CPT/HCPCS: 36415; 80048; 84484; 85025; 93005; 99283; 99284; Q0163

== ENCOUNTER → 2020-09-21 12:29 | Outpatient (BNVA) | payer MEDICARE, MEDICAID, SELFPAY | PROVIDERS: PCP Nurse Practitioner Family; Visit Provider Internal Medicine | DX: E04.2 Nontoxic multinodular goiter (principal); E83.52 Hypercalcemia | CPT/HCPCS: 99212 ==

== ENCOUNTER → 2020-09-28 08:30 | Outpatient (BNVA) | payer MEDICARE, MEDICAID, SELFPAY | PROVIDERS: PCP Nurse Practitioner Family; Visit Provider Urology | DX: R39.15 Urgency of urination (principal) | CPT/HCPCS: 51798; 81002; 99212 ==

== ENCOUNTER 2020-11-23 07:04 | Outpatient (REF) | payer MEDICARE, MEDICAID, SELFPAY ==
[2020-11-23 09:10] LABS: Free T4 (Free Thyroxine) 0.94 ng/dL (0.71-1.85); Thyroid Stimulating Hormone 0.46 uIU/mL (0.32-4.0); Vitamin D 25-OH Total 33.3 ng/mL (>30)
[2020-11-25 12:12] LABS: HIV RNA PCR Qn Copies 22 copies/mL (NOT DETECTED); HIV RNA PCR Qn Log Copies 1.34 (NOT DETECTED)
[2020-11-26 15:02] LABS: Absolute CD3 Count 1359 cells/uL (840-3060); Absolute CD4 Count 668 cells/uL (490-1740); Absolute CD8 Count 718 cells/uL (180-1170); Absolute Lymphocytes 1572 cells/uL (850-3900); CD4 CD8 Ratio 0.93 (0.86-5.00); Percent CD3 Cells 86 % (57-85); Percent CD4 Cells 42 % (30-61); Percent CD8 Cells 46 % (12-42)
== END 2020-11-23 07:05 | disposition home or self-care (01) ==
LOC: HO.LAB 07:04
PROVIDERS: Internal Medicine; Absent Provider Nurse Practitioner; PCP Nurse Practitioner; Visit Provider Internal Medicine
DX: B20 Human immunodeficiency virus [HIV] disease (principal); E04.2 Nontoxic multinodular goiter; E55.9 Vitamin D deficiency, unspecified
CPT/HCPCS: 36415; 82306; 84439; 84443; 86359; 86360; 87536

== ENCOUNTER → 2020-11-28 09:07 | Outpatient (BNVA) | payer MEDICARE, MEDICAID, SELFPAY | PROVIDERS: PCP Nurse Practitioner; Visit Provider Internal Medicine Pulmonary Disease | DX: J45.30 Mild persistent asthma, uncomplicated (principal) | CPT/HCPCS: 99212 ==

== ENCOUNTER 2021-02-13 10:06 | Outpatient (REF) | payer MEDICARE, MEDICAID, SELFPAY ==
[2021-02-13 10:43] LABS: MANUAL DIFF FLAG NO
[2021-02-13 10:53] LABS: Glucose Urine UA NEG (NEG); Leukocyte Esterase Urine TRACE (NEG); Nitrite Urine NEG (NEG); Urine Blood NEG (NEG); Urine Ketones NEG (NEG); Urine Protein NEG (NEG-TRACE)
[2021-02-13 10:54] LABS: Appearance Urine CLEAR; Color Urine YELLOW
[2021-02-13 10:58] LABS: Basophils Percent Auto 0.6 % (0-2); Eosinophils Absolute Auto 0.1 X10*3/uL (0.0-0.4); Eosinophils Percent Auto 1.4 % (0-4); Hematocrit 38.8 % (37-47); Hemoglobin 13.4 g/dl (12.0-16.0); Imm Gran Abs Auto 0.01 X10*3/uL (0.00-0.03); Imm Gran Pct Auto 0.2 % (0.0-0.4); Lymphocytes Percent Auto 38.7 % (20-40); Mean Corpuscular HGB Conc 34.5 g/dl (31.0-35.0); Mean Corpuscular Hemoglobin 31.4 pg (27.0-33.0); Mean Corpuscular Volume 90.9 fL (80-98); Mean Platelet Volume 12.2 fL (9.4-12.3); Monocytes Absolute Auto 0.5 X10*3/uL (0.1-1.2); Monocytes Percent Auto 8.9 % (2-11); Neutrophils Absolute Auto 2.6 X10*3/uL (2.0-8.3); Neutrophils Percent Auto 50.2 % (45-73); Platelet Count 240 X10*3/uL (160-400); Red Blood Count 4.27 X10*6/uL (4.20-5.50); Red Cell Distribution Width 13.3 % (11.0-16.0); White Blood Count 5.1 X10*3/uL (4.8-10.8)
[2021-02-13 11:10] LABS: RBC Urine 0 /HPF (0); Squamous Epithelial Cell Urine 1+ /LPF; WBC Urine 0-2 /HPF (0-4)
[2021-02-13 11:20] LABS: Alanine Aminotransferase 18 U/L (0-31); Albumin Level 4.4 g/dL (3.5-5.0); Alkaline Phosphatase 43 U/L (39-117); Anion Gap 11 (12-20); Aspartate Amino Transferase 25 U/L (5-31); Bilirubin Total 0.5 mg/dL (0.0-1.0); Blood Urea Nitrogen 14 mg/dL (9-16); Calcium 9.8 mg/dL (8.4-10.2); Carbon Dioxide 30 mmol/L (22-29); Chloride 102 mmol/L (96-108); Cholesterol 125 mg/dL; Estimated Glomerular Filt Rate > 60; Glucose Random 92 mg/dL (60-115); HDL Cholesterol 43 mg/dL; LDL Cholesterol Calculated 60 mg/dl; Potassium 4.2 mmol/L (3.3-5.1); Sodium 139 mmol/L (135-145); Total Protein 7.4 g/dL (6.5-8.0); Triglycerides 114 mg/dL
[2021-02-14 14:51] LABS: Absolute CD3 Count 1536 cells/uL (840-3060); Absolute CD4 Count 796 cells/uL (490-1740); Absolute CD8 Count 751 cells/uL (180-1170); Absolute Lymphocytes 1770 cells/uL (850-3900); CD4 CD8 Ratio 1.06 (0.86-5.00); Percent CD3 Cells 87 % (57-85); Percent CD4 Cells 45 % (30-61); Percent CD8 Cells 42 % (12-42)
[2021-02-15 16:22] LABS: HIV RNA PCR Qn Copies 62 copies/mL (NOT DETECTED); HIV RNA PCR Qn Log Copies 1.79 (NOT DETECTED)
== END 2021-02-13 10:07 | disposition home or self-care (01) ==
LOC: HO.LAB 10:06
PROVIDERS: Absent Provider Nurse Practitioner; PCP Nurse Practitioner; Visit Provider Internal Medicine
DX: B20 Human immunodeficiency virus [HIV] disease (principal)
CPT/HCPCS: 36415; 80053; 80061; 81001; 85025; 86359; 86360; 87536

== ENCOUNTER 2021-02-20 07:43 | Outpatient (REF) | payer MEDICARE, MEDICAID, SELFPAY ==
--- NOTE | ~2021-02-20 | MM_ITS ---
EXAMINATION: BONE DENSITOMETRY CLINICAL INDICATION: Osteopenia. COMPARISON: Baseline BD dated 07/08/2007. TECHNIQUE: Using a [employer] DXA System (software version: 13.1) manufactured by [employer], dual-energy x-ray absorptiometry was performed of the lumbar spine and left hip. The images are of good technical quality. Summary results are attached. FINDINGS: AP SPINE L1-L4: Current: BMD 1.111 g/cm2, Z-score 0.8, T-score -0.6, normal, 2.3% increase from baseline (<5% change is not significant). Baseline: BMD 1.086 g/cm2. LEFT FEMUR, NECK: Current: BMD 0.863 g/cm2, Z-score 0.1, T-score -1.3, osteopenia. Baseline: BMD 0.938 g/cm2. LEFT FEMUR, TOTAL: Current: BMD 0.984 g/cm2, Z-score 0.9, T-score -0.2, normal, 1.2% increase from baseline (<5% change is not significant). Baseline: BMD 0.972 g/cm2. IDENTIFIED RISK FACTORS: Menopause, hysterectomy, glucocorticoids (chronic), bilateral oophorectomy, Thiazide. HISTORY OF FRACTURE: None listed. MEDICATIONS: Multivitamin, vitamin D. MM/XR DEXA axial skeleton IMPRESSION: 1. DIAGNOSIS: Osteopenia based on the lowest T-score value of -1.3 in the femoral neck applying World Health Organization criteria. 2. 10-YEAR FRACTURE RISK PREDICTION, FRAX: Major osteoporotic fracture (clinical spine, forearm, hip or shoulder) 7.3%. Hip fracture 0.7%. 3. Treatment Recommendations: NOF guidelines recommend consideration for treatment in postmenopausal women and men age 50 and older presenting with the following: -A hip or vertebral (clinical or morphometric) fracture. -T-score less than or equal to -2.5 at the femoral neck or spine after appropriate evaluation to exclude secondary causes. -Low bone mass at the hip or spine and a 10-year fracture probability by FRAX of greater than or equal to 3% for hip fracture or greater than or equal to 20% for major osteoporotic fracture based on the [place] adapted WHO algorithm. 4. Other Recommendations: All treatment decisions require clinical judgment and consideration of individual patient factors, including patient preferences, comorbidities, previous drug use, risk factors not captured in the FRAX model (e.g. frailty, falls, vitamin D deficiency, increased bone turnover, interval significant decline in bone density) and possible under or overestimation of fracture risk by FRAX. Additional medical evaluation for secondary cause of low bone mineral density may be appropriate. FUTURE SCAN RECOMMENDATION: People with diagnosed cases of osteoporosis or at high risk for fracture should have regular bone mineral density tests. For patients eligible for Medicare, routine testing is allowed once every 2 years. The testing frequency can be increased to one year for patients who have rapidly progressing disease, those who are receiving or discontinuing medical therapy to restore bone mass, or have additional risk factors.
== END 2021-02-20 07:44 | disposition home or self-care (01) ==
LOC: HO.MAMMO 07:43
PROVIDERS: Visit Provider Nurse Practitioner
DX: Z13.820 Encounter for screening for osteoporosis (principal); M85.80 Other specified disorders of bone density and structure, unspecified site; M81.0 Age-related osteoporosis without current pathological fracture; Z78.0 Asymptomatic menopausal state; E27.49 Other adrenocortical insufficiency; Z90.722 Acquired absence of ovaries, bilateral; Z98.890 Other specified postprocedural states; Z79.899 Other long term (current) drug therapy
CPT/HCPCS: 77080

== ENCOUNTER → 2021-04-03 09:18 | Outpatient (BNVA) | payer MEDICARE, MEDICAID, SELFPAY | PROVIDERS: PCP Nurse Practitioner; Visit Provider Internal Medicine Pulmonary Disease | DX: J45.30 Mild persistent asthma, uncomplicated (principal) | CPT/HCPCS: 99212 ==

== ENCOUNTER 2021-05-07 07:46 | Outpatient (REF) | payer MEDICARE, MEDICAID, SELFPAY ==
[2021-05-07 08:16] LABS: MANUAL DIFF FLAG NO
[2021-05-07 08:42] LABS: Basophils Percent Auto 0.6 % (0-2); Eosinophils Absolute Auto 0.1 X10*3/uL (0.0-0.4); Eosinophils Percent Auto 1.5 % (0-4); Hematocrit 39.4 % (37.0-47.0); Hemoglobin 13.3 g/dl (12.0-16.0); Imm Gran Abs Auto 0.04 X10*3/uL (0.00-0.03); Imm Gran Pct Auto 0.8 % (0.0-0.4); Lymphocytes Absolute Auto 1.6 X10*3/uL (1.2-4.9); Lymphocytes Percent Auto 30.7 % (20-40); Mean Corpuscular HGB Conc 33.8 g/dl (31.0-35.0); Mean Corpuscular Hemoglobin 31.1 pg (27.0-33.0); Mean Corpuscular Volume 92.3 fL (80.0-98.0); Mean Platelet Volume 12.1 fL (9.4-12.3); Monocytes Absolute Auto 0.4 X10*3/uL (0.1-1.2); Monocytes Percent Auto 6.6 % (2-11); Neutrophils Absolute Auto 3.2 x10*3/uL (2.0-8.3); Neutrophils Percent Auto 59.8 % (45-73); Platelet Count 249 X10*3/uL (160-400); Red Blood Count 4.27 X10*6/uL (4.20-5.50); Red Cell Distribution Width 12.8 % (11.0-16.0); White Blood Count 5.3 X10*3/uL (4.8-10.8)
[2021-05-07 09:23] LABS: Alanine Aminotransferase 15 U/L (0-31); Albumin Level 4.3 g/dL (3.5-5.0); Alkaline Phosphatase 48 U/L (39-117); Anion Gap 13 (12-20); Aspartate Amino Transferase 19 U/L (5-31); Bilirubin Total 0.3 mg/dL (0.0-1.0); Blood Urea Nitrogen 13 mg/dL (9-16); Calcium 9.3 mg/dL (8.4-10.2); Carbon Dioxide 29 mmol/L (22-29); Chloride 103 mmol/L (96-108); Estimated Glomerular Filt Rate > 60; Glucose Random 176 mg/dL (60-115); Potassium 3.8 mmol/L (3.3-5.1); Sodium 141 mmol/L (135-145); Total Protein 7.3 g/dL (6.5-8.0)
[2021-05-07 11:01] LABS: CT PCR NOT DETECTED (Not Detect.); NG PCR NOT DETECTED (Not Detect.)
[2021-05-08 08:35] LABS: Syphilis Screen Reactive (Nonreactive)
[2021-05-08 13:57] LABS: Absolute CD3 Count 1325 cells/uL (840-3060); Absolute CD4 Count 686 cells/uL (490-1740); Absolute CD8 Count 649 cells/uL (180-1170); Absolute Lymphocytes 1587 cells/uL (850-3900); CD4 CD8 Ratio 1.06 (0.86-5.00); Percent CD3 Cells 83 % (57-85); Percent CD4 Cells 43 % (30-61); Percent CD8 Cells 41 % (12-42)
[2021-05-08 19:32] LABS: HIV RNA PCR Qn Copies <20 NOT DETECTED copies/mL (NOT DETECTED); HIV RNA PCR Qn Log Copies <1.30 NOT DETECTED (NOT DETECTED)
[2021-05-09 16:07] LABS: TS Negative Control Passed; TS Panel A 1; TS Panel B 0; TS Positive Control Passed; TSpotTB Negative (Negative)
[2021-05-10 08:27] LABS: Hepatitis B Viral DNA Qn - cp <1.00 NOT DETECTED Log IU/mL (NOT DETECTED); Hepatitis B Viral DNA Qn-IU/mL <10 NOT DETECTED IU/mL (NOT DETECTED)
[2021-05-14 09:18] LABS: RPR Quantitative Reactive 1:1 (Nonreactive)
[2021-05-14 09:23] LABS: T.Pallidum Particle Agg Test Reactive (Nonreactive)
== END 2021-05-07 07:47 | disposition home or self-care (01) ==
LOC: HO.LAB 07:46
PROVIDERS: PCP Internal Medicine; Visit Provider Internal Medicine
DX: B20 Human immunodeficiency virus [HIV] disease (principal)
CPT/HCPCS: 36415; 80053; 85025; 86359; 86360; 86481; 86592; 86780; 87491; 87517; 87536; 87591

== ENCOUNTER 2021-05-17 09:21 | Outpatient (REF) | payer MEDICARE, MEDICAID, SELFPAY ==
--- NOTE | ~2021-05-17 | MM_ITS ---
EXAMINATION: MM SCREENING DIGITAL BREAST TOMOSYNTHESIS, BILATERAL CLINICAL INFORMATION: Screening. Asymptomatic. The lifetime risk of breast cancer based on the Tyrer-Cuzick Model is 5%. COMPARISON: Mammography: 05/15/2020, 07/12/2019, 05/10/2019, 05/07/2018 TECHNIQUE: Digital breast tomosynthesis is performed in both the craniocaudal and mediolateral oblique views along with computer-aided detection (CAD). Synthesized 2D images are generated from the tomosynthesis. FINDINGS: There are scattered areas of fibroglandular density (ACR BI-RADS breast composition Category b). There are no significant masses, abnormal calcifications, or other abnormalities. There is a dermal lesion overlying the posterior inferior medial left breast. Scattered bilateral benign round and rim calcifications are again seen, most predominantly dermal. No significant changes. MM/MM tomosynthesis screening BI IMPRESSION: No mammographic evidence of malignancy. ASSESSMENT: BI-RADS 2: Benign RECOMMENDATION: Routine annual mammography screening. This patient's information was entered into a reminder system with a target due date for their next mammogram.
== END 2021-05-17 09:22 | disposition home or self-care (01) ==
LOC: HO.MAMMO 09:21
PROVIDERS: Visit Provider Nurse Practitioner
DX: Z12.31 Encounter for screening mammogram for malignant neoplasm of breast (principal)
CPT/HCPCS: 77063; 77067

== ENCOUNTER 2021-08-05 08:48 | Day surgery (SDC) | payer MEDICARE, MEDICAID, SELFPAY ==
[2021-07-29 14:15] VITALS: BMI 31.4
--- NOTE | 2021-08-01 16:24 | MHC.SHP ---
Pre-Procedural Eval Section A Date of Service: 08/01/21 The patient is an INPATIENT: No Changes since office visit: No Cold of Flu in the past 2 weeks, No New Medical Problems, No Changes in Medication and No Patient answered all questions The History & Physical has been completed within 30 days and I have reviewed it.: Yes Section B Chief Complaint: cataract right eye Allergies: Allergies Allergy/AdvReac Type Severity Reaction Status Date / Time cyclobenzaprine Allergy Intermediate Rash Verified 07/29/21 13:55 fluticasone Allergy Intermediate Swelling Verified 04/03/21 09:22 [From Advair Diskus] ibuprofen [From Motrin] Allergy Intermediate RASH Verified 07/29/21 13:55 salmeterol Allergy Intermediate Swelling Verified 04/03/21 09:22 [From Advair Diskus] lisinopril [LISINOPRIL] AdvReac Mild Cough Verified 07/29/21 13:55 Plan Diagnosis/Plan: Unchanged I have reviewed the history and physical and performed a pertinent physical examination on my patient. No changes have occurred unless specified.
--- NOTE | 2021-08-02 09:03 | HO.ANESPROP2 ---
Documented by User: Echo Moreland NP 08/02/21 09:04 HPI - Anesthesia Eval Consult details Narrative: 66yo F for Right Cataract Extraction IOL Insertion PCP Cleared No previous cataract on record Eliquis for h/o PE PMFSH Active Problems Active Problems: All Active Problems (Updated 07/29/21 @ 14:16 by Alyssa Ash, JOHNATHON) Left foot pain (Acute) Mild persistent asthma (Acute) Pulmonary embolism (Chronic) Fibromyalgia (Acute) Urinary urgency (Acute) Hypercalcemia (Acute) Vitamin D deficiency (Acute) Multinodular thyroid (Acute) Past Medical History Medical History (Updated 07/29/21 @ 14:16 by Alyssa Ash RN) Anxiety Appendicitis with abscess Arthritis Colon cancer screening COVID-19 COVID-19 vaccine series completed Fibromyalgia GERD (gastroesophageal reflux disease) Glaucoma H/O esophageal reflux HIV (human immunodeficiency virus infection) HTN (hypertension) Hypercalcemia Hypercholesterolemia Hyperglycemia Multinodular thyroid Myalgia Myositis Overweight Pelvic pain Primary osteoarthritis of both knees Pulmonary embolism Rectal pain Urgency incontinence Uterine fibroid Vitamin D deficiency Family History Family History Father Thyroid cancer Mother Cirrhosis Hypertension Daughter Thyroid cancer Surgical History Surgical History (Updated 07/29/21 @ 14:01 by Alyssa Ash RN) H/O colonoscopy Hx of appendectomy Hx of hysterectomy Hx of tubal ligation Social History Social History (Updated 03/08/21 @ 10:17 by Franca Daniels) Household Members: None Are you a primary group care worker to a significant other at home: No Do you 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 If so, by whom?: No Are you DNR?: No Advance Directives: No (states is son & daughter) Advance Directives Information Provided: Yes Advance Directives on File: No Recently lost weight without trying: No Eating poorly because of decreased appetite: No Nutrition Risks: No Nutritional Risk Poor oral hygiene: No (upper & lower partial) Meds Allergies Allergy/AdvReac Type Severity Reaction Status Date / Time cyclobenzaprine Allergy Intermediate Rash Verified 07/29/21 13:55 fluticasone Allergy Intermediate Swelling Verified 04/03/21 09:22 [From Advair Diskus] ibuprofen [From Motrin] Allergy Intermediate RASH Verified 07/29/21 13:55 salmeterol Allergy Intermediate Swelling Verified 04/03/21 09:22 [From Advair Diskus] lisinopril [LISINOPRIL] AdvReac Mild Cough Verified 07/29/21 13:55 Home Medications Medication Instructions Recorded Confirmed Last Taken Type acetaminophen 500 mg tablet 500 mg PO Q8H PRN 04/11/20 07/29/21 Unknown History albuterol sulfate 90 mcg/actuation 2 puff PO Q4-6H PRN 04/11/20 07/29/21 Unknown History aerosol inhaler atorvastatin 20 mg tablet 20 mg PO DAILY 04/11/20 07/29/21 Unknown History bupropion HCl 150 mg tablet,12 hr 150 mg PO BID 04/11/20 07/29/21 Unknown History sustained-release clonazepam 0.5 mg tablet 0.5 mg PO DAILY 04/11/20 07/29/21 Unknown History docusate sodium 100 mg capsule 100 mg PO DAILY 04/11/20 07/29/21 Unknown History ergocalciferol (vitamin D2) 1,250 1,250 mcg PO DAILY 04/11/20 07/29/21 Unknown History mcg (50,000 unit) capsule fenofibrate micronized 67 mg 67 mg PO DAILY 04/11/20 07/29/21 Unknown History capsule hydrochlorothiazide 25 mg tablet 25 mg PO DAILY 04/11/20 07/29/21 Unknown History multivitamin-ferrous 1 tab PO DAILY 04/11/20 07/29/21 Unknown History fumarate-folic acid 18 mg-400 mcg tablet omeprazole 20 mg capsule,delayed 20 mg PO BID 04/11/20 07/29/21 08/05/21 History release simethicone 80 mg chewable tablet 80 mg PO BID PRN 04/11/20 07/29/21 Unknown History fluticasone propionate 50 50 mcg INTRANASAL DAILY 06/21/20 07/29/21 Unknown History mcg/actuation nasal spray,suspension cetirizine 10 mg tablet 10 mg PO DAILY 09/21/20 07/29/21 Unknown History losartan 100 mg tablet 100 mg PO DAILY tab 09/21/20 07/29/21 08/05/21 History pregabalin 200 mg capsule (Lyrica) 200 mg PO BID cap 09/21/20 07/29/21 Unknown History dolutegravir 50 mg tablet (Tivicay) 1 tab PO DAILY 07/29/21 07/29/21 Unknown History emtricitabine 200 mg-tenofovir 1 tab PO DAILY 07/29/21 07/29/21 Unknown History alafenamide fumarate 25 mg tablet (Descovy) fluticasone propionate 44 INHALATION 08/05/21 08/05/21 08/05/21 History mcg/actuation HFA aerosol inhaler (Flovent HFA) Exam Exam Date and Time: August 02, 2021 09 Height,Weight and Vital Signs: Height 5 ft 0.5 in Weight 74.117 kg Assessment and Plan Assessment Anesthesia Assessment: Chart Reviewed Documented by User: Heather Perkins MD 08/05/21 11:34 PMFSH Active Problems Active Problems: All Active Problems (Updated 07/29/21 @ 14:16 by Alyssa Ash RN) Left foot pain (Acute) Mild persistent asthma (Acute). Flovent daily. Used today. Albuterol prn. Uses about 2x /week Pulmonary embolism (Chronic). Last dose eliquis last night 08/04/21 Fibromyalgia (Acute) Urinary urgency (Acute) Hypercalcemia (Acute) Vitamin D deficiency (Acute) Multinodular thyroid (Acute) Past Medical History Medical History (Updated 07/29/21 @ 14:16 by Alyssa Ash RN) Anxiety Appendicitis with abscess Arthritis Colon cancer screening COVID-19 COVID-19 vaccine series completed Fibromyalgia GERD (gastroesophageal reflux disease) Glaucoma H/O esophageal reflux HIV (human immunodeficiency virus infection) HTN (hypertension) Hypercalcemia Hypercholesterolemia Hyperglycemia Multinodular thyroid Myalgia Myositis Overweight Pelvic pain Primary osteoarthritis of both knees Pulmonary embolism Rectal pain Urgency incontinence Uterine fibroid Vitamin D deficiency Family History Family History Father Thyroid cancer Mother Cirrhosis Hypertension Daughter Thyroid cancer Family history of problems with anesthesia: No Surgical History Surgical History (Updated 07/29/21 @ 14:01 by Alyssa Ash RN) H/O colonoscopy Hx of appendectomy Hx of hysterectomy Hx of tubal ligation History of Problems with Anesthesia: No Social History Social History (Updated 03/08/21 @ 10:17 by Franca Daniels) Household Members: None Are you a primary group care worker to a significant other at home: No Do you 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 If so, by whom?: No Are you DNR?: No Advance Directives: No (states is son & daughter) Advance Directives Information Provided: Yes Advance Directives on File: No Recently lost weight without trying: No Eating poorly because of decreased appetite: No Nutrition Risks: No Nutritional Risk Poor oral hygiene: No (upper & lower partial) Meds Allergies Allergy/AdvReac Type Severity Reaction Status Date / Time cyclobenzaprine Allergy Intermediate Rash Verified 07/29/21 13:55 fluticasone Allergy Intermediate Swelling Verified 04/03/21 09:22 [From Advair Diskus] ibuprofen [From Motrin] Allergy Intermediate RASH Verified 07/29/21 13:55 salmeterol Allergy Intermediate Swelling Verified 04/03/21 09:22 [From Advair Diskus] lisinopril [LISINOPRIL] AdvReac Mild Cough Verified 07/29/21 13:55 Home Medications Medication Instructions Recorded Confirmed Last Taken Type acetaminophen 500 mg tablet 500 mg PO Q8H PRN 04/11/20 07/29/21 Unknown History albuterol sulfate 90 mcg/actuation 2 puff PO Q4-6H PRN 04/11/20 07/29/21 Unknown History aerosol inhaler atorvastatin 20 mg tablet 20 mg PO DAILY 04/11/20 07/29/21 Unknown History bupropion HCl 150 mg tablet,12 hr 150 mg PO BID 04/11/20 07/29/21 Unknown History sustained-release clonazepam 0.5 mg tablet 0.5 mg PO DAILY 04/11/20 07/29/21 Unknown History docusate sodium 100 mg capsule 100 mg PO DAILY 04/11/20 07/29/21 Unknown History ergocalciferol (vitamin D2) 1,250 1,250 mcg PO DAILY 04/11/20 07/29/21 Unknown History mcg (50,000 unit) capsule fenofibrate micronized 67 mg 67 mg PO DAILY 04/11/20 07/29/21 Unknown History capsule hydrochlorothiazide 25 mg tablet 25 mg PO DAILY 04/11/20 07/29/21 Unknown History multivitamin-ferrous 1 tab PO DAILY 04/11/20 07/29/21 Unknown History fumarate-folic acid 18 mg-400 mcg tablet omeprazole 20 mg capsule,delayed 20 mg PO BID 04/11/20 07/29/21 08/05/21 History release simethicone 80 mg chewable tablet 80 mg PO BID PRN 04/11/20 07/29/21 Unknown History fluticasone propionate 50 50 mcg INTRANASAL DAILY 06/21/20 07/29/21 Unknown History mcg/actuation nasal spray,suspension cetirizine 10 mg tablet 10 mg PO DAILY 09/21/20 07/29/21 Unknown History losartan 100 mg tablet 100 mg PO DAILY tab 09/21/20 07/29/21 08/05/21 History pregabalin 200 mg capsule (Lyrica) 200 mg PO BID cap 09/21/20 07/29/21 Unknown History dolutegravir 50 mg tablet (Tivicay) 1 tab PO DAILY 07/29/21 07/29/21 Unknown History emtricitabine 200 mg-tenofovir 1 tab PO DAILY 07/29/21 07/29/21 Unknown History alafenamide fumarate 25 mg tablet (Descovy) fluticasone propionate 44 INHALATION 08/05/21 08/05/21 08/05/21 History mcg/actuation HFA aerosol inhaler (Flovent HFA) Exam Height,Weight and Vital Signs: Height 5 ft 0.5 in Weight 74.117 kg Vital Signs Temp Pulse Resp BP Pulse Ox 08/05/21 10:47 98 F 64 18 142/68 H 96 Airway Mallampati Class: II TM Dist: >3cm Neck ROM: Full Partial: Upper and Lower Heart: RRR Lungs: CTAB. No wheezing Assessment and Plan Assessment Anesthesia Assessment: Anesthesia Plan Discussed Final Anesthetic Review Family History of Problems with Anesthesia: No History of Problems with Anesthesia: No NPO: Yes ASA Class: III Final Preanesthetic Review: No Changes in Pt Med Stat, Meds/Allgs Chart Reviewed, Consent Obtained/Reviewed and Anes Risks/Benef Reviewed Patient Risk: Intermediate Procedure Risk: Low Assessment/Block/Sedation in SS: Assess/Block/Sedation-SS Anesthetic Plan Anesthetic Plan: MAC: Disposition: Standard PACU
[2021-08-05 10:47] VITALS: BP 142/68; PULSE 64; RESP 18; TEMP 36.6; O2SAT 96
[2021-08-05] MEDS: Phenylephrine HCL 2.5% Oph SoL 2 ML BOTTLE 1 DROP EYE-RIGHT ×3 (10:50→10:51)
[2021-08-05] MEDS: Tropicamide 1 % Ophth Sol 3 ML BTL 1 DROP EYE-RIGHT ×3 (10:50→10:51)
[2021-08-05] MEDS: Lactated Ringers 500 ML 50 ML IV (10:50)
--- NOTE | 2021-08-05 11:40 | HO.PNOPHT ---
Ophthalmology Procedure Procedure Date of Service: 08/05/21 Ophthalmology Viscoelastic: [place] [employer]onzo Dual Pack Pro Ophthalmology Lenses: TECAMENA [id number] (22) Procedure Notes: PREOPERATIVE DIAGNOSIS: Decreased visual acuity right eye secondary to cataract POSTOPERATIVE DIAGNOSIS: Same PROCEDURE: Right cataract extraction with intraocular lens insertion SURGEON: Sonny Webb M.D. ANESTHESIA: Topical/MAC ESTIMATED BLOOD LOSS: None COMPLICATIONS: None After obtaining informed consent, the patient was brought to the operating room suite and placed in the supine position. After adequate sedation per anesthesia, topical drops of Tetracaine were given to the right eye. The eye was then prepped and draped in the usual sterile fashion. The operating room microscope was then positioned over the operative eye and a lid speculum placed. A paracentesis was created. Viscoelastic was then instilled into the anterior chamber. A three plane incision was then created temporally, utilizing a 2.85 mm keratome. Capsulotomy forceps were then utilized to create a circular tear capsulotomy. Hydrodissection and hydrodelineation were carried out until adequate mobilization of the nucleus occurred. Phacoemulsification was then utilized to remove the dense central nucleus followed by removal of the cortical material utilizing the automated aspiration irrigation unit. Viscoelastic was instilled into the posterior capsular bag followed by placement of a posterior chamber intraocular lens without difficulty. The residual Viscoelastic was then removed utilizing the automated IA machine. The wound was checked and found to be watertight. The patient tolerated the procedure well and the lid speculum was removed. Intracameral injection of Vigamox 0.1 mL followed by a subtenon injection of Kenalog-40 0.2 mL were administered. The patient will be seen in the a.m.
[2021-08-05 12:05] VITALS: BP 130/57; PULSE 66; RESP 16; TEMP 36.1; O2SAT 96
== END 2021-08-05 12:13 | disposition home or self-care (01) ==
PROVIDERS: PCP Nurse Practitioner; Visit Provider Ophthalmology
PROC: (CPT 66985; principal; 2021-08-05 11:50)
DX: H25.11 Age-related nuclear cataract, right eye (principal); H40.213 Acute angle-closure glaucoma, bilateral; H52.4 Presbyopia; I10 Essential (primary) hypertension; B20 Human immunodeficiency virus [HIV] disease; E78.00 Pure hypercholesterolemia, unspecified; M79.7 Fibromyalgia; R42 Dizziness and giddiness; J45.909 Unspecified asthma, uncomplicated; F32.9 Major depressive disorder, single episode, unspecified; Z79.899 Other long term (current) drug therapy; Z88.8 Allergy status to other drugs, medicaments and biological substances; Z87.891 Personal history of nicotine dependence
CPT/HCPCS: 66984; J2405; J3010; J3300; V2632

== ENCOUNTER 2021-08-19 09:13 | Day surgery (SDC) | payer MEDICARE, MEDICAID, SELFPAY ==
[2021-07-29 14:18] VITALS: BMI 31.4
--- NOTE | 2021-08-15 12:54 | MHC.SHP ---
Pre-Procedural Eval Section A Date of Service: 08/15/21 The patient is an INPATIENT: No Changes since office visit: No Cold of Flu in the past 2 weeks, No New Medical Problems, No Changes in Medication and No Patient answered all questions The History & Physical has been completed within 30 days and I have reviewed it.: Yes Section B Chief Complaint: cataract left eye Allergies: Allergies Allergy/AdvReac Type Severity Reaction Status Date / Time cyclobenzaprine Allergy Intermediate Rash Verified 07/29/21 13:55 fluticasone Allergy Intermediate Swelling Verified 04/03/21 09:22 [From Advair Diskus] ibuprofen [From Motrin] Allergy Intermediate RASH Verified 07/29/21 13:55 salmeterol Allergy Intermediate Swelling Verified 04/03/21 09:22 [From Advair Diskus] lisinopril [LISINOPRIL] AdvReac Mild Cough Verified 07/29/21 13:55 Plan Diagnosis/Plan: Unchanged I have reviewed the history and physical and performed a pertinent physical examination on my patient. No changes have occurred unless specified.
--- NOTE | 2021-08-15 13:49 | HO.ANESPROP2 ---
Documented by User: Echo Moreland NP 08/15/21 13:50 HPI - Anesthesia Eval Consult details Narrative: 66yo F for Left Cataract Extraction IOL Insertion PCP cleared Right eye done 08/05/21 with MAC: Fent 50, Zofran 4 Eliquis for h/o PE PMFSH Active Problems Active Problems: All Active Problems (Updated 07/29/21 @ 14:16 by Alyssa Ash, JOHNATHON) Left foot pain (Acute) Mild persistent asthma (Acute) Pulmonary embolism (Chronic) Fibromyalgia (Acute) Urinary urgency (Acute) Hypercalcemia (Acute) Vitamin D deficiency (Acute) Multinodular thyroid (Acute) Past Medical History Medical History (Updated 07/29/21 @ 14:16 by Alyssa Ash RN) Anxiety Appendicitis with abscess Arthritis Colon cancer screening COVID-19 COVID-19 vaccine series completed Fibromyalgia GERD (gastroesophageal reflux disease) Glaucoma H/O esophageal reflux HIV (human immunodeficiency virus infection) HTN (hypertension) Hypercalcemia Hypercholesterolemia Hyperglycemia Multinodular thyroid Myalgia Myositis Overweight Pelvic pain Primary osteoarthritis of both knees Pulmonary embolism Rectal pain Urgency incontinence Uterine fibroid Vitamin D deficiency Family History Family History Father Thyroid cancer Mother Cirrhosis Hypertension Daughter Thyroid cancer Family history of problems with anesthesia: No Surgical History Surgical History (Updated 07/29/21 @ 14:01 by Alyssa Ash RN) H/O colonoscopy Hx of appendectomy Hx of hysterectomy Hx of tubal ligation History of Problems with Anesthesia: No Social History Social History (Updated 03/08/21 @ 10:17 by Franca Daniels) Household Members: None Are you a primary care tech to a significant other at home: No Do you presently have visiting nurse or other home services: 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 If so, by whom?: No Are you DNR?: No Advance Directives Information Provided: Yes (will bring copy DOS) Advance Directives on File: No Recently lost weight without trying: No Eating poorly because of decreased appetite: No Nutrition Risks: No Nutritional Risk Poor oral hygiene: No (upper & lower partial) Meds Allergies Allergy/AdvReac Type Severity Reaction Status Date / Time cyclobenzaprine Allergy Intermediate Rash Verified 07/29/21 13:55 fluticasone Allergy Intermediate Swelling Verified 04/03/21 09:22 [From Advair Diskus] ibuprofen [From Motrin] Allergy Intermediate RASH Verified 07/29/21 13:55 salmeterol Allergy Intermediate Swelling Verified 04/03/21 09:22 [From Advair Diskus] lisinopril [LISINOPRIL] AdvReac Mild Cough Verified 07/29/21 13:55 Home Medications Medication Instructions Recorded Confirmed Last Taken Type acetaminophen 500 mg tablet 500 mg PO Q8H PRN 04/11/20 07/29/21 Unknown History albuterol sulfate 90 mcg/actuation 2 puff PO Q4-6H PRN 04/11/20 07/29/21 Unknown History aerosol inhaler atorvastatin 20 mg tablet 20 mg PO DAILY 04/11/20 07/29/21 Unknown History bupropion HCl 150 mg tablet,12 hr 150 mg PO BID 04/11/20 07/29/21 Unknown History sustained-release clonazepam 0.5 mg tablet 0.5 mg PO DAILY 04/11/20 07/29/21 Unknown History docusate sodium 100 mg capsule 100 mg PO DAILY 04/11/20 07/29/21 Unknown History ergocalciferol (vitamin D2) 1,250 1,250 mcg PO DAILY 04/11/20 07/29/21 Unknown History mcg (50,000 unit) capsule fenofibrate micronized 67 mg 67 mg PO DAILY 04/11/20 07/29/21 Unknown History capsule hydrochlorothiazide 25 mg tablet 25 mg PO DAILY 04/11/20 07/29/21 Unknown History multivitamin-ferrous 1 tab PO DAILY 04/11/20 07/29/21 Unknown History fumarate-folic acid 18 mg-400 mcg tablet omeprazole 20 mg capsule,delayed 20 mg PO BID 04/11/20 07/29/21 08/19/21 06:30 History release simethicone 80 mg chewable tablet 80 mg PO BID PRN 04/11/20 07/29/21 Unknown History fluticasone propionate 50 50 mcg INTRANASAL DAILY 06/21/20 07/29/21 Unknown History mcg/actuation nasal spray,suspension cetirizine 10 mg tablet 10 mg PO DAILY 09/21/20 07/29/21 Unknown History losartan 100 mg tablet 100 mg PO DAILY tab 09/21/20 07/29/21 08/19/21 06:30 History pregabalin 200 mg capsule (Lyrica) 200 mg PO BID cap 09/21/20 07/29/21 Unknown History dolutegravir 50 mg tablet (Tivicay) 1 tab PO DAILY 07/29/21 07/29/21 Unknown History emtricitabine 200 mg-tenofovir 1 tab PO DAILY 07/29/21 07/29/21 Unknown History alafenamide fumarate 25 mg tablet (Descovy) fluticasone propionate 44 INHALATION 08/05/21 08/05/21 08/05/21 History mcg/actuation HFA aerosol inhaler (Flovent HFA) Exam Exam Date and Time: August 15, 2021 1349 Height,Weight and Vital Signs: Height 5 ft 0.5 in Weight 74.117 kg Assessment and Plan Assessment Anesthesia Assessment: Chart Reviewed Final Anesthetic Review Family History of Problems with Anesthesia: No History of Problems with Anesthesia: No Documented by User: Franca Adames MD 08/19/21 09:57 [facility] Past Medical History Medical History (Updated 07/29/21 @ 14:16 by Alyssa Ash RN) Anxiety Appendicitis with abscess Arthritis Colon cancer screening COVID-19 COVID-19 vaccine series completed Fibromyalgia GERD (gastroesophageal reflux disease) Glaucoma H/O esophageal reflux HIV (human immunodeficiency virus infection) HTN (hypertension) Hypercalcemia Hypercholesterolemia Hyperglycemia Multinodular thyroid Myalgia Myositis Overweight Pelvic pain Primary osteoarthritis of both knees Pulmonary embolism Rectal pain Urgency incontinence Uterine fibroid Vitamin D deficiency Family History Family History Father Thyroid cancer Mother Cirrhosis Hypertension Daughter Thyroid cancer Surgical History Surgical History (Updated 07/29/21 @ 14:01 by Alyssa Ash RN) H/O colonoscopy Hx of appendectomy Hx of hysterectomy Hx of tubal ligation Social History Social History (Updated 03/08/21 @ 10:17 by Franca Daniels) Household Members: None Are you a primary care tech to a significant other at home: No Do you presently have visiting nurse or other home services: 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 If so, by whom?: No Are you DNR?: No Advance Directives Information Provided: Yes (will bring copy DOS) Advance Directives on File: No Recently lost weight without trying: No Eating poorly because of decreased appetite: No Nutrition Risks: No Nutritional Risk Poor oral hygiene: No (upper & lower partial) Meds Allergies Allergy/AdvReac Type Severity Reaction Status Date / Time cyclobenzaprine Allergy Intermediate Rash Verified 07/29/21 13:55 fluticasone Allergy Intermediate Swelling Verified 04/03/21 09:22 [From Advair Diskus] ibuprofen [From Motrin] Allergy Intermediate RASH Verified 07/29/21 13:55 salmeterol Allergy Intermediate Swelling Verified 04/03/21 09:22 [From Advair Diskus] lisinopril [LISINOPRIL] AdvReac Mild Cough Verified 07/29/21 13:55 Home Medications Medication Instructions Recorded Confirmed Last Taken Type acetaminophen 500 mg tablet 500 mg PO Q8H PRN 04/11/20 07/29/21 Unknown History albuterol sulfate 90 mcg/actuation 2 puff PO Q4-6H PRN 04/11/20 07/29/21 Unknown History aerosol inhaler atorvastatin 20 mg tablet 20 mg PO DAILY 04/11/20 07/29/21 Unknown History bupropion HCl 150 mg tablet,12 hr 150 mg PO BID 04/11/20 07/29/21 Unknown History sustained-release clonazepam 0.5 mg tablet 0.5 mg PO DAILY 04/11/20 07/29/21 Unknown History docusate sodium 100 mg capsule 100 mg PO DAILY 04/11/20 07/29/21 Unknown History ergocalciferol (vitamin D2) 1,250 1,250 mcg PO DAILY 04/11/20 07/29/21 Unknown History mcg (50,000 unit) capsule fenofibrate micronized 67 mg 67 mg PO DAILY 04/11/20 07/29/21 Unknown History capsule hydrochlorothiazide 25 mg tablet 25 mg PO DAILY 04/11/20 07/29/21 Unknown History multivitamin-ferrous 1 tab PO DAILY 04/11/20 07/29/21 Unknown History fumarate-folic acid 18 mg-400 mcg tablet omeprazole 20 mg capsule,delayed 20 mg PO BID 04/11/20 07/29/21 08/19/21 06:30 History release simethicone 80 mg chewable tablet 80 mg PO BID PRN 04/11/20 07/29/21 Unknown History fluticasone propionate 50 50 mcg INTRANASAL DAILY 06/21/20 07/29/21 Unknown History mcg/actuation nasal spray,suspension cetirizine 10 mg tablet 10 mg PO DAILY 09/21/20 07/29/21 Unknown History losartan 100 mg tablet 100 mg PO DAILY tab 09/21/20 07/29/21 08/19/21 06:30 History pregabalin 200 mg capsule (Lyrica) 200 mg PO BID cap 09/21/20 07/29/21 Unknown History dolutegravir 50 mg tablet (Tivicay) 1 tab PO DAILY 07/29/21 07/29/21 Unknown History emtricitabine 200 mg-tenofovir 1 tab PO DAILY 07/29/21 07/29/21 Unknown History alafenamide fumarate 25 mg tablet (Descovy) fluticasone propionate 44 INHALATION 08/05/21 08/05/21 08/05/21 History mcg/actuation HFA aerosol inhaler (Flovent HFA) Exam Airway Mallampati Class: II TM Dist: >3cm Neck ROM: Full Partial: Upper and Lower Heart: rrr Lungs: cta Assessment and Plan Assessment Anesthesia Assessment: Anesthesia Plan Discussed and Chart Reviewed Final Anesthetic Review NPO: Yes ASA Class: III Final Preanesthetic Review: No Changes in Pt Med Stat, Meds/Allgs Chart Reviewed and Consent Obtained/Reviewed Patient Risk: Intermediate Procedure Risk: Intermediate Anesthetic Plan Anesthetic Plan: MAC: Disposition: Standard PACU
[2021-08-19 09:58] VITALS: BP 135/65; PULSE 67; RESP 16; TEMP 37; O2SAT 96
[2021-08-19] MEDS: Tetracaine HCl/PF 0.5% Oph Sol 4 ML DROPS 1 DROP EYE-LEFT (10:01)
[2021-08-19] MEDS: Tropicamide 1 % Ophth Sol 3 ML BTL 1 DROP EYE-LEFT ×3 (10:04→10:13)
[2021-08-19] MEDS: Phenylephrine HCL 2.5% Oph SoL 2 ML BOTTLE 1 DROP EYE-LEFT ×3 (10:07→10:16)
[2021-08-19] MEDS: Lactated Ringers 500 ML 50 ML IV (10:15)
--- NOTE | 2021-08-19 11:19 | HO.PNOPHT ---
Ophthalmology Procedure Procedure Date of Service: 08/19/21 Ophthalmology Viscoelastic: Healrandy Gaffneyt Dual Pack Pro Ophthalmology Lenses: TECAMENA [id number] (22) Procedure Notes: PREOPERATIVE DIAGNOSIS: Decreased visual acuity left eye secondary to cataract POSTOPERATIVE DIAGNOSIS: Same PROCEDURE: Left cataract extraction with intraocular lens insertion SURGEON: Sonny Webb M.D. ANESTHESIA: Topical/MAC ESTIMATED BLOOD LOSS: None COMPLICATIONS: None After obtaining informed consent, the patient was brought to the operation room suite and placed in the supine position. After adequate sedation per anesthesia, topical drops of Tetracaine were given to the left eye. The eye was then prepped and draped in the usual sterile fashion. The operating room microscope was then positioned over the operative eye and a lid speculum placed. A paracentesis was created. Viscoelastic was then instilled into the anterior chamber. A three plane incision was then created temporally, utilizing a 2.85 mm keratome. Capsulotomy forceps were then utilized to create a circular tear capsulotomy. Hydrodissection and hydrodelineation were carried out until adequate mobilization of the nucleus occurred. Phacoemulsification was then utilized to remove the dense central nucleus followed by removal of the cortical material utilizing the automated aspiration irrigation unit. Viscoat elastic was instilled into the posterior capsular bag followed by placement of a posterior chamber intraocular lens without difficulty. The residual Viscoat elastic was then removed utilizing the automated IA machine. The wound was check and found to be watertight. The patient tolerated the procedure well and the lid speculum was removed. Intracameral injection of Vigamox 0.1 mL followed by a subtenon injection of Kenalog-40 0.2 mL were administered. The patient will be seen in the a.m.
[2021-08-19 11:41] VITALS: BP 127/75; PULSE 57; RESP 16; TEMP 36.6; O2SAT 95
== END 2021-08-19 11:51 | disposition home or self-care (01) ==
PROVIDERS: PCP Nurse Practitioner; Visit Provider Ophthalmology
PROC: (CPT 66985; principal; 2021-08-19 11:40)
DX: H25.12 Age-related nuclear cataract, left eye (principal); H54.7 Unspecified visual loss; H40.213 Acute angle-closure glaucoma, bilateral; I10 Essential (primary) hypertension; E78.5 Hyperlipidemia, unspecified; B20 Human immunodeficiency virus [HIV] disease; J45.909 Unspecified asthma, uncomplicated; I26.99 Other pulmonary embolism without acute cor pulmonale; Z79.01 Long term (current) use of anticoagulants; F32.9 Major depressive disorder, single episode, unspecified; Z79.899 Other long term (current) drug therapy; Z79.51 Long term (current) use of inhaled steroids; Z88.8 Allergy status to other drugs, medicaments and biological substances; Z87.891 Personal history of nicotine dependence
CPT/HCPCS: 66984; J2250; J3010; J3300; V2632

== ENCOUNTER 2021-08-20 10:33 | Outpatient (REF) | payer MEDICARE, MEDICAID, SELFPAY ==
[2021-08-20 11:05] LABS: MANUAL DIFF FLAG NO
[2021-08-20 11:51] LABS: Basophils Percent Auto 0.3 % (0-2); Eosinophils Absolute Auto 0.1 X10*3/uL (0.0-0.4); Eosinophils Percent Auto 1.3 % (0-4); Hemoglobin 13.1 g/dl (12.0-16.0); Imm Gran Abs Auto 0.01 X10*3/uL (0.00-0.03); Imm Gran Pct Auto 0.2 % (0.0-0.4); Lymphocytes Percent Auto 33.3 % (20-40); Mean Corpuscular HGB Conc 33.6 g/dl (31.0-35.0); Mean Corpuscular Hemoglobin 31.3 pg (27.0-33.0); Mean Corpuscular Volume 93.1 fL (80.0-98.0); Mean Platelet Volume 11.7 fL (9.4-12.3); Monocytes Absolute Auto 0.5 X10*3/uL (0.1-1.2); Monocytes Percent Auto 7.7 % (2-11); Neutrophils Absolute Auto 3.5 x10*3/uL (2.0-8.3); Neutrophils Percent Auto 57.2 % (45-73); Platelet Count 244 X10*3/uL (160-400); Red Blood Count 4.19 X10*6/uL (4.20-5.50); White Blood Count 6.1 X10*3/uL (4.8-10.8)
[2021-08-20 12:52] LABS: Alanine Aminotransferase 15 U/L (0-31); Albumin Level 4.4 g/dL (3.5-5.0); Alkaline Phosphatase 42 U/L (39-117); Anion Gap 13 (12-20); Aspartate Amino Transferase 22 U/L (5-31); Bilirubin Total 0.4 mg/dL (0.0-1.0); Blood Urea Nitrogen 12 mg/dL (9-16); Calcium 10.1 mg/dL (8.4-10.2); Carbon Dioxide 30 mmol/L (22-29); Chloride 101 mmol/L (96-108); Estimated Glomerular Filt Rate > 60; Glucose Random 92 mg/dL (60-115); Potassium 3.7 mmol/L (3.3-5.1); Sodium 140 mmol/L (135-145); Total Protein 7.4 g/dL (6.5-8.0)
[2021-08-21 13:15] LABS: Absolute CD3 Count 1659 cells/uL (840-3060); Absolute CD4 Count 846 cells/uL (490-1740); Absolute CD8 Count 836 cells/uL (180-1170); Absolute Lymphocytes 1930 cells/uL (850-3900); CD4 CD8 Ratio 1.01 (0.86-5.00); Percent CD3 Cells 86 % (57-85); Percent CD4 Cells 44 % (30-61); Percent CD8 Cells 43 % (12-42)
[2021-08-21 14:41] LABS: Hepatitis B Viral DNA Qn - cp <1.00 NOT DETECTED Log IU/mL (NOT DETECTED); Hepatitis B Viral DNA Qn-IU/mL <10 NOT DETECTED IU/mL (NOT DETECTED)
[2021-08-22 14:07] LABS: TS Negative Control Passed; TS Panel A 1; TS Panel B 1; TS Positive Control Passed; TSpotTB Negative (Negative)
[2021-08-22 14:46] LABS: HIV RNA PCR Qn Copies NOT DETECTED copies/mL (NOT DETECTED); HIV RNA PCR Qn Log Copies NOT DETECTED (NOT DETECTED)
== END 2021-08-20 10:34 | disposition home or self-care (01) ==
LOC: HO.LAB 10:33
PROVIDERS: PCP Nurse Practitioner; Visit Provider Internal Medicine
DX: Z11.1 Encounter for screening for respiratory tuberculosis (principal); B20 Human immunodeficiency virus [HIV] disease
CPT/HCPCS: 36415; 80053; 85025; 86359; 86360; 86481; 87517; 87536

== ENCOUNTER → 2021-08-29 09:11 | Outpatient (BNVA) | payer MEDICARE, MEDICAID, SELFPAY | PROVIDERS: PCP Nurse Practitioner; Visit Provider Nurse Practitioner Family | DX: M79.7 Fibromyalgia (principal) | CPT/HCPCS: 99212 ==

== ENCOUNTER 2021-09-11 08:38 | Outpatient (REF) | payer MEDICARE, MEDICAID, SELFPAY ==
--- NOTE | ~2021-09-11 | US_ITS ---
EXAMINATION: US THYROID CLINICAL INFORMATION: Nontoxic multinodular goiter. COMPARISON: Thyroid ultrasound 03/29/2020 and 06/30/2019. TECHNIQUE: Linear transducer grayscale and color Doppler examination with attention to the region of the thyroid. FINDINGS: SIZE: Measurements of the thyroid lobes and nodules are given in sagittal, anteroposterior and transverse dimensions respectively. Right Thyroid Lobe: 5.1 x 1.7 x 1.5 cm, volume 6.95 mL. Previously 5.5 x 2.0 x 2.0 cm, volume 11.5 mL. Parenchyma: The gland echotexture is homogeneous. Thyroid vascularity is normal. Left Thyroid Lobe: 5.6 x 1.7 x 2.3 cm, volume 11.6 mL. Previously 5.5 x 1.4 x 1.8 cm, volume 7.2 mL. Parenchyma: The gland echotexture is homogeneous. Thyroid vascularity is normal. Isthmus: 0.34 cm in maximum AP dimension. Previously 0.40 cm. Estimated total number of nodules greater than or equal to 1 cm: 2. Kindergarten Tutor nodules are described as follows: 1. Location: Right mid. Size: 1.04 x 0.67 x 0.82 cm, volume 0.30 mL. Previously: Not seen on the previous study. Nodule characteristics: Composition: Mixed cystic and solid (1). Echogenicity: Very hypoechoic (3). Shape: Not taller than wide (0). Margins: Smooth (0). Echogenic Foci: Macrocalcifications (1). ACR TI-RADS total points: 5 ACR TI-RADS category: 4 2. Location: Right superior. Size: 0.57 x 0.44 x 0.44 cm, volume 0.06 mL. Previously: Not seen on the previous study. Nodule characteristics: Composition: Mixed cystic and solid (1). Echogenicity: Very hypoechoic (3). Shape: Taller than wide (3). Margins: Smooth (0). Echogenic Foci: None (0). ACR TI-RADS total points: 7 ACR TI-RADS category: 5 3. Location: Left superior. Size: 0.79 x 0.53 x 0.70 cm, volume 0.15 mL. Previously: 0.72 x 0.41 x 0.55 cm, volume 0.08 mL. Nodule characteristics: Composition: Spongiform (0). Echogenicity: Anechoic (0). Shape: Not taller than wide (0). Margins: Smooth (0). Echogenic Foci: None (0). ACR TI-RADS total points: 0 ACR TI-RADS category: 1 4. Location: Left superior. Size: 1.1 x 0.72 x 1.1 cm, volume 0.46 mL. Previously: 1.1 x 0.70 x 0.91 cm, volume 0.37 mL. Nodule characteristics: Composition: Mixed cystic and solid (1). Echogenicity: Hypoechoic (2). Shape: Not taller than wide (0). Margins: Smooth (0). Echogenic Foci: None (0). ACR TI-RADS total points: 3 ACR TI-RADS category: 3 5. Location: Right isthmus. Size: 0.71 x 0.56 x 0.64 cm, volume 0.14 mL. Previously: 1.1 x 0.55 x 0.84 cm, volume 0.27 mL. Nodule characteristics: Composition: Spongiform (0). Echogenicity: Anechoic (0). Shape: Not taller than wide (0). Margins: Smooth (0). Echogenic Foci: None (0). ACR TI-RADS total points: 0 ACR TI-RADS category: 1 NODES: No lymphadenopathy is seen in the tissue surrounding the thyroid gland. US/US thyroid IMPRESSION: Multinodular goiter, redemonstration of bilateral thyroid nodules as described above some of which newly found on today's exam including 1 cm nodule mid right lobe ACR TI-RADS category 4. Continued imaging surveillance recommended. One year follow-up ultrasound.. ACR TI-RADS RECOMMENDATION REFERENCE: Ultrasound-guided fine-needle aspiration, followup ultrasound, no further follow up. * TR1 (0 point) and TR 2 (2 points): No FNA or follow up * TR3 (3 points): FNA if more than or equal to 2.5 cm in maximum dimension, followup ultrasound in 1, 3 and 5 years if 1.5 to 2.4 cm in maximum dimension. * TR4 (4-6 points): FNA if more than or equal to 1.5 cm in maximum dimension, followup ultrasound in 1, 2, 3 and 5 years if 1 to 1.4 cm in maximum dimension. * TR5 (more than or equal to 7 points): FNA if more than or equal to 1 cm in maximum dimension, followup ultrasound every year for 5 years if 0.5 to 0.9 cm in maximum dimension. * TR3, TR4 or TR5 nodules that are below the size threshold for follow up receive no follow up.
== END 2021-09-11 08:39 | disposition home or self-care (01) ==
LOC: HO.US 08:38
PROVIDERS: Visit Provider Internal Medicine
DX: E04.2 Nontoxic multinodular goiter (principal)
CPT/HCPCS: 76536

== ENCOUNTER → 2021-09-27 09:11 | Outpatient (BNVA) | payer MEDICARE, MEDICAID, SELFPAY | PROVIDERS: PCP Nurse Practitioner; Visit Provider Internal Medicine Pulmonary Disease | DX: J45.30 Mild persistent asthma, uncomplicated (principal) | CPT/HCPCS: 99212 ==

== ENCOUNTER 2022-02-27 09:33 | Outpatient (REF) | payer MEDICARE, MEDICAID, SELFPAY ==
--- NOTE | 2022-02-27 10:00 | PM.OP ---
Brief Operative Note Date of Service: 02/27/22 Pre-op diagnosis: Multinodular Thyroid Procedure: The patient presented for US with possible FNA biopsy of the thyroid. Nodules were remeasured during today's exam and no nodules were meeting indication for FNA biopsy. The previously mentioned LUP 1.1 cm nodule, was found to be a LMP 0.8 cm hypoechoic nodule with regular margins, not meeting indication for FNA biopsy. Her remaining nodules were subcentimeter and also not meeting indication for FNA biopsy. No FNA biopsy was performed today. She will continue with yearly US surveillance. Surgeon: Ruby Roque, DO Was an Asic Verification Engineer used for this Procedure?: No Estimated blood loss (mL): 0
== END 2022-02-27 09:34 | disposition home or self-care (01) ==
LOC: HO.US 09:33
PROVIDERS: Visit Provider Internal Medicine
DX: E04.2 Nontoxic multinodular goiter (principal)
CPT/HCPCS: 76536

== ENCOUNTER → 2022-03-13 13:11 | Outpatient (BNVA) | payer MEDICARE, MEDICAID, SELFPAY | PROVIDERS: PCP Nurse Practitioner Primary Care; Visit Provider Internal Medicine | DX: E04.2 Nontoxic multinodular goiter (principal); E55.9 Vitamin D deficiency, unspecified | CPT/HCPCS: 99212 ==

== ENCOUNTER 2022-03-21 10:21 | Outpatient (REF) | payer MEDICARE, MEDICAID, SELFPAY ==
[2022-03-21 10:45] LABS: MANUAL DIFF FLAG NO
[2022-03-21 11:28] LABS: Basophils Percent Auto 0.5 % (0-2); Eosinophils Absolute Auto 0.1 X10*3/uL (0.0-0.4); Eosinophils Percent Auto 0.7 % (0-4); Hematocrit 39.6 % (37.0-47.0); Hemoglobin 13.6 g/dl (12.0-16.0); Imm Gran Abs Auto 0.02 X10*3/uL (0.00-0.03); Imm Gran Pct Auto 0.3 % (0.0-0.4); Lymphocytes Absolute Auto 1.6 X10*3/uL (1.2-4.9); Lymphocytes Percent Auto 21.2 % (20-40); Mean Corpuscular HGB Conc 34.3 g/dl (31.0-35.0); Mean Corpuscular Hemoglobin 31.1 pg (27.0-33.0); Mean Corpuscular Volume 90.4 fL (80.0-98.0); Mean Platelet Volume 11.8 fL (9.4-12.3); Monocytes Absolute Auto 0.5 X10*3/uL (0.1-1.2); Monocytes Percent Auto 6.4 % (2-11); Neutrophils Absolute Auto 5.3 x10*3/uL (2.0-8.3); Neutrophils Percent Auto 70.9 % (45-73); Platelet Count 271 X10*3/uL (160-400); Red Blood Count 4.38 X10*6/uL (4.20-5.50); Red Cell Distribution Width 12.7 % (11.0-16.0); White Blood Count 7.5 X10*3/uL (4.8-10.8)
[2022-03-21 11:51] LABS: Alanine Aminotransferase 19 U/L (0-31); Albumin Level 4.5 g/dL (3.5-5.0); Alkaline Phosphatase 49 U/L (39-117); Anion Gap 13 (12-20); Aspartate Amino Transferase 22 U/L (5-31); Bilirubin Total 0.2 mg/dL (0.0-1.0); Blood Urea Nitrogen 18 mg/dL (9-16); Calcium 10.1 mg/dL (8.4-10.2); Carbon Dioxide 29 mmol/L (22-29); Chloride 102 mmol/L (96-108); Cholesterol 141 mg/dL; Estimated Glomerular Filt Rate > 60; Glucose Random 104 mg/dL (60-115); HDL Cholesterol 40 mg/dL; LDL Cholesterol Calculated 81 mg/dl; Sodium 140 mmol/L (135-145); Total Protein 7.4 g/dL (6.5-8.0); Triglycerides 101 mg/dL
[2022-03-21 12:04] LABS: Appearance Urine Clear; Color Urine Yellow; Glucose Urine UA Negative (Negative); Leukocyte Esterase Urine Large (3+) (Negative); Nitrite Urine Negative (Negative); Specific Gravity - Urine <= 1.005 (1.005-1.025); UMIC TRIGGER UA YES; Urine Blood Small (1+) (Negative); Urine Ketones Negative (Negative); Urine Protein Negative (Neg-Trace)
[2022-03-21 12:22] LABS: Bacteria Urine None Seen (None Seen); Hyaline Casts Urine 0-2 /LPF (0-2); RBC Urine 0-2 /HPF (0-2); Squamous Epithelial Cell Urine 0-2 /HPF (0-2); WBC Urine >50 /HPF (0-5)
[2022-03-23 13:06] LABS: HIV RNA PCR Qn Copies <20 DETECTED copies/mL (NOT DETECTED); HIV RNA PCR Qn Log Copies <1.30 DETECTED (NOT DETECTED)
[2022-03-24 13:56] LABS: Absolute CD3 Count 1420 cells/uL (840-3060); Absolute CD4 Count 717 cells/uL (490-1740); Absolute CD8 Count 735 cells/uL (180-1170); Absolute Lymphocytes 1640 cells/uL (850-3900); CD4 CD8 Ratio 0.98 (0.86-5.00); Percent CD3 Cells 87 % (57-85); Percent CD4 Cells 44 % (30-61); Percent CD8 Cells 45 % (12-42)
== END 2022-03-21 10:22 | disposition home or self-care (01) ==
LOC: HO.LAB 10:21
PROVIDERS: PCP Nurse Practitioner; Visit Provider Internal Medicine
DX: B20 Human immunodeficiency virus [HIV] disease (principal)
CPT/HCPCS: 36415; 80053; 80061; 81001; 85025; 86359; 86360; 87536

== ENCOUNTER 2022-03-25 09:21 | Emergency (ER) | payer MEDICARE, MEDICAID, SELFPAY ==
[2022-03-25 09:54] VITALS: BP 142/80; PULSE 69; RESP 18; TEMP 36.4; O2SAT 95; BMI 30.7
[2022-03-25 10:26] LABS: Appearance Urine Clear; Color Urine Yellow; Glucose Urine UA Negative (Negative); Leukocyte Esterase Urine Large (3+) (Negative); Nitrite Urine Negative (Negative); Specific Gravity - Urine <= 1.005 (1.005-1.025); UMIC TRIGGER UACC YES; Urine Blood Moderate (2+) (Negative); Urine Ketones Negative (Negative); Urine Protein Negative (Neg-Trace)
[2022-03-25 10:48] LABS: Bacteria Urine None Seen (None Seen); Hyaline Casts Urine 0-2 /LPF (0-2); Squamous Epithelial Cell Urine 0-2 /HPF (0-2); UACC Culture Trigger YES; WBC Urine >50 /HPF (0-5)
--- NOTE | 2022-03-25 10:57 | ED_ITS ---
HPI - Female Genitourinary General Chief complaint: Urogenital-Female Stated complaint: pain when urinating Time Seen by Provider: 03/25/22 10:40 Source: patient Mode of arrival: ambulatory History of Present Illness HPI Narrative: 66-year-old female with a past medical history of anxiety, asthma, COVID-19, fibromyalgia, GERD, glaucoma, HLD, myalgia, myositis, presenting to the ED complaining of dysuria x2 weeks. Denies fever, chills, nausea, vomiting, abdominal pain, flank pain, hematuria, vaginal bleeding/discharge MD elicited complaint: dysuria and UTI Related Data Home Medications Medication Instructions Recorded Confirmed acetaminophen 500 mg tablet 500 mg PO Q8H PRN Pain 04/11/20 03/13/22 albuterol sulfate 90 mcg/actuation 2 puff PO Q4-6H PRN Wheezing 04/11/20 03/13/22 aerosol inhaler atorvastatin 20 mg tablet 20 mg PO DAILY 04/11/20 03/13/22 bupropion HCl 150 mg tablet,12 hr 150 mg PO BID 04/11/20 03/13/22 sustained-release clonazepam 0.5 mg tablet 0.5 mg PO DAILY anxiety 04/11/20 03/13/22 docusate sodium 100 mg capsule 100 mg PO DAILY 04/11/20 03/13/22 fenofibrate micronized 67 mg 67 mg PO DAILY 04/11/20 03/13/22 capsule hydrochlorothiazide 25 mg tablet 25 mg PO DAILY 04/11/20 03/13/22 multivitamin-ferrous 1 tab PO DAILY 04/11/20 03/13/22 fumarate-folic acid 18 mg-400 mcg tablet omeprazole 20 mg capsule,delayed 20 mg PO BID 04/11/20 03/13/22 release simethicone 80 mg chewable tablet 80 mg PO BID PRN Constipation 04/11/20 03/13/22 fluticasone propionate 50 50 mcg intranasal DAILY 06/21/20 03/13/22 mcg/actuation nasal spray,suspension cetirizine 10 mg tablet 10 mg PO DAILY 09/21/20 03/13/22 losartan 100 mg tablet 100 mg PO DAILY 09/21/20 03/13/22 pregabalin 200 mg capsule (Lyrica) 200 mg PO BID 09/21/20 03/13/22 dolutegravir 50 mg tablet (Tivicay) 1 tab PO DAILY 07/29/21 03/13/22 emtricitabine 200 mg-tenofovir 1 tab PO DAILY 07/29/21 03/13/22 alafenamide fumarate 25 mg tablet (Descovy) fluticasone propionate 44 inhalation 08/05/21 03/13/22 mcg/actuation HFA aerosol inhaler (Flovent HFA) Previous Rx's Medication Instructions Recorded apixaban 2.5 mg tablet (Eliquis) 2.5 mg PO BID #60 tabs 09/04/20 mirabegron 50 mg tablet,extended 50 mg PO DAILY 90 days #90 tabs 04/22/21 release 24 hr Flovent HFA 44 mcg/actuation 2 puff PO BID #10.6 grams 01/27/22 aerosol inhaler (fluticasone propionate) tramadol 50 mg tablet 50 mg PO TID PRN pain #90 tabs 03/10/22 cefuroxime axetil 250 mg tablet 250 mg PO BID 7 days #14 tabs 03/25/22 phenazopyridine 200 mg tablet 200 mg PO TID PRN pain 6 doses #6 03/25/22 (Pyridium) tabs Allergies Allergy/AdvReac Type Severity Reaction Status Date / Time cyclobenzaprine Allergy Intermediate Rash Verified 03/13/22 13:54 fluticasone Allergy Intermediate Swelling Verified 03/13/22 13:54 [From Advair Diskus] ibuprofen [From Motrin] Allergy Intermediate RASH Verified 03/13/22 13:54 salmeterol Allergy Intermediate Swelling Verified 03/13/22 13:54 [From Advair Diskus] lisinopril [LISINOPRIL] AdvReac Mild Cough Verified 03/13/22 13:54 Review of Systems Review of Systems: Constitutional: No Fever, No Chills ENT/Mouth: No Ear Pain, No Nasal Congestion, No Sinus Pain, No Hoarseness, No sore throat, No Rhinorrhea, No Swallowing Difficulty Cardiovascular: No Chest Pain, No SOB Respiratory: No Cough, No Sputum, No Wheezing Gastrointestinal: No Nausea, No Vomiting, No Diarrhea, No Constipation, No Abdominal pain Genitourinary: + Dysuria, No Urinary Frequency, No Hematuria, No Urinary Incontinence/retention, No Urgency, No Flank Pain Musculoskeletal: No joint pain, No Myalgias, No Joint Swelling Skin: No Skin Lesions, No rash Neuro: No Weakness Yes all other systems are reviewed and are negative Constitutional: Constitutional: Reports as per [facility] Past Medical History Attestation statement: The following information was validated with the patient. Medical History Anxiety Appendicitis with abscess Arthritis Asthma Colon cancer screening COVID-19 COVID-19 vaccine series completed Fibromyalgia GERD (gastroesophageal reflux disease) Glaucoma H/O esophageal reflux HIV (human immunodeficiency virus infection) HTN (hypertension) Hypercalcemia Hypercholesterolemia Hyperglycemia Multinodular thyroid Myalgia Myositis Overweight Pelvic pain Primary osteoarthritis of both knees Pulmonary embolism Rectal pain Urgency incontinence Uterine fibroid Vitamin D deficiency Surgical History H/O colonoscopy Hx of appendectomy Hx of hysterectomy Hx of tubal ligation Family History Family History Father Thyroid cancer Mother Cirrhosis Hypertension Daughter Thyroid cancer Social History Social History Household Members: None Housing: Apartment Are you a primary career guidance technician to a significant other at home: No Do you presently have visiting nurse or other home services: Yes ([employer]) Alcohol intake: former Patient Tobacco Use Status: Former Tobacco user Quit Date: 1996 Tobacco use type: Cigarette Years Smoked: 23 yrs Advance Directives: Yes Advance Directives on File: Yes Advance Directives Date on File: 08/05/21 service: No Current occupational status: retired Physical Exam Vital Signs: Vital Signs: Last Vital Signs Temp 97.6 F 03/25/22 09:54 Pulse 69 03/25/22 09:54 Resp 18 03/25/22 09:54 BP 142/80 H 03/25/22 09:54 Pulse Ox 95 03/25/22 09:54 O2 Del Method 03/25/22 09:54 BMI result Body Mass Index 30.7 Const: General: cooperative, healthy appearing and no acute distress Orientation/consciousness: patient oriented x3 Limitations: no limitations HEENT: Head: Yes normal to inspection and Yes atraumatic Ears: hearing grossly normal bilaterally General nose exam: Normal external nose present Face and sinus: Yes normal facial exam Eyes: General: appearance normal, both eyes and all related structures EOM: EOMs intact bilaterally Neck: Neck: Yes normal visual inspection and Yes no meningeal signs Resp: Effort & Inspection: normal respiratory effort and no respiratory distress Auscultation: clear to auscultation bilaterally Cardio: Rate: regular rate Heart sounds: S1 normal heart sound present and S2 normal heart sound present GI: Inspection: Yes normal to inspection Palpation (GI): Soft to palpation, nontender, no guarding and not rigid : General: Yes no CVA tenderness Back/Spine/Pelvis: Back: no CVA tenderness Skin: Rashes: no rashes Wounds: no wounds Neuro: General: patient oriented x3, tone normal and no meningeal signs Gait exam (Neuro): Normal gait present Extrem: General: Yes normal to inspection Course Course Course Narrative: -1100--UA with blood, RBCs, >50 wbc's and 3+ leuk esterase > will DC patient with Ceftin and pyridium Results discussed with patient including worrisome signs and symptoms and strict return precautions, and when to return to the emergency department. They verbalized understanding and feel safe for discharge at this time. MDM - Female Genitourinary MDM Narrative Medical decision making narrative: 66-year-old female with a past medical history of anxiety, asthma, COVID-19, fibromyalgia, GERD, glaucoma, HLD, myalgia, myositis, presenting to the ED complaining of dysuria x2 weeks. On exam vital signs stable, NAD, nontoxic appearing, abdomen soft/nontender, no CVA tenderness. Concern for UTI. Low suspicion for renal stone, pyelo, or intra-abdominal pathology Plan: UA Differential Diagnosis Differential diagnosis: Likely urinary tract infection and cystitis Medical Records Attestation: I reviewed the patient's medical records. Lab Data Attestation: I reviewed the patient's lab results. Labs: Lab Results 03/25/22 Range/Units 10:09 Urine Color Yellow Urine Appearance Clear Urine pH 7.0 (5.0-9.0) Ur Specific [place] <= 1.005 (1.005-1.025) Urine Protein Negative (Neg-Trace) mg/dL Urine Glucose (UA) Negative (Negative) mg/dL Urine Ketones Negative (Negative) mg/dL Urine Blood Moderate (2+) H (Negative) Urine Nitrite Negative (Negative) Ur Leukocyte Esterase Large (3+) H (Negative) Urine RBC 6-10 H (0-2) /HPF Urine WBC >50 H (0-5) /HPF Ur Squamous Epith Cells 0-2 (0-2) /HPF Urine Bacteria None Seen (None Seen) Hyaline Casts 0-2 (0-2) /LPF Discharge Plan Discharge Clinical Impression: Acute UTI Patient Disposition: Home, Self-Care Instructions: Urinary Tract Infection in Older Adults (ED) Additional Instructions: Your urine is infected Ceftin is an antibiotic please take as prescribed. Additionally pyridium will help with her symptoms, this may turn your pee orange. Drink plenty of fluids If symptoms persist or worsen, you develop abdominal pain, nausea, vomiting, fever, or back pain return to the ED Follow-up with her doctor Prescriptions: New phenazopyridine [Pyridium] 200 mg tablet 200 mg PO TID PRN (Reason: pain) Qty: 6 0RF cefuroxime axetil 250 mg tablet 250 mg PO BID 7 Days Qty: 14 0RF No Action mirabegron 50 mg tablet extended release 24 hr 50 mg PO DAILY 90 Days Qty: 90 3RF Flovent HFA 44 mcg/actuation HFA aerosol inhaler 2 puff PO BID Qty: 10.6 6RF tramadol 50 mg tablet 50 mg PO TID PRN (Reason: pain) Qty: 90 1RF Eliquis 2.5 mg Tablet 2.5 mg PO BID Qty: 60 3RF Tivicay 50 mg tablet 1 tab PO DAILY Descovy 200-25 mg tablet 1 tab PO DAILY fluticasone propionate [Flovent HFA] 44 mcg/actuation HFA aerosol inhaler inhalation fluticasone propionate 50 mcg/actuation spray,suspension 50 mcg intranasal DAILY cetirizine 10 mg tablet 10 mg PO DAILY fenofibrate micronized 67 mg capsule 67 mg PO DAILY acetaminophen 500 mg tablet 500 mg PO Q8H PRN (Reason: Pain) omeprazole 20 mg capsule,delayed release(DR/EC) 20 mg PO BID clonazepam 0.5 mg tablet 0.5 mg PO DAILY atorvastatin 20 mg tablet 20 mg PO DAILY simethicone 80 mg tablet,chewable 80 mg PO BID PRN (Reason: Constipation) albuterol sulfate 90 mcg/actuation HFA aerosol inhaler 2 puff PO Q4-6H PRN (Reason: Wheezing) hydrochlorothiazide 25 mg tablet 25 mg PO DAILY docusate sodium 100 mg capsule 100 mg PO DAILY bupropion HCl 150 mg tablet sustained-release 12 hr 150 mg PO BID Cerovite Advanced Formula 18-400 mg-mcg tablet 1 tab PO DAILY losartan 100 mg tablet 100 mg PO DAILY pregabalin [Lyrica] 200 mg capsule 200 mg PO BID Referrals: Hellen Warner [Primary Care Provider] - 1 week
== END 2022-03-25 11:15 | disposition home or self-care (01) ==
PROVIDERS: Emergency Provider Emergency Medicine; PCP Nurse Practitioner
DX: N39.0 Urinary tract infection, site not specified (principal); R30.0 Dysuria; Z79.899 Other long term (current) drug therapy; Z87.891 Personal history of nicotine dependence
CPT/HCPCS: 81001; 87086; 99282; 99283

== ENCOUNTER → 2022-04-02 09:08 | Outpatient (BNVA) | payer MEDICARE, MEDICAID, SELFPAY | PROVIDERS: PCP Nurse Practitioner Primary Care; Visit Provider Internal Medicine Pulmonary Disease | DX: J45.30 Mild persistent asthma, uncomplicated (principal) | CPT/HCPCS: 99212 ==

== ENCOUNTER 2022-04-11 08:41 | Outpatient (REF) | payer MEDICARE, MEDICAID, SELFPAY ==
[2022-04-11 08:58] LABS: MANUAL DIFF FLAG NO
[2022-04-11 09:21] LABS: Basophils Percent Auto 0.8 % (0-2); Eosinophils Absolute Auto 0.1 X10*3/uL (0.0-0.4); Hematocrit 39.5 % (37.0-47.0); Hemoglobin 13.4 g/dl (12.0-16.0); Imm Gran Abs Auto 0.01 X10*3/uL (0.00-0.03); Imm Gran Pct Auto 0.2 % (0.0-0.4); Lymphocytes Absolute Auto 1.6 X10*3/uL (1.2-4.9); Mean Corpuscular HGB Conc 33.9 g/dl (31.0-35.0); Mean Corpuscular Hemoglobin 30.9 pg (27.0-33.0); Mean Corpuscular Volume 91.2 fL (80.0-98.0); Mean Platelet Volume 11.6 fL (9.4-12.3); Monocytes Absolute Auto 0.4 X10*3/uL (0.1-1.2); Platelet Count 250 X10*3/uL (160-400); Red Blood Count 4.33 X10*6/uL (4.20-5.50)
[2022-04-11 09:24] LABS: Appearance Urine Clear; Color Urine Yellow; Glucose Urine UA Negative (Negative); Leukocyte Esterase Urine Trace (Negative); Nitrite Urine Negative (Negative); PH 6.5 (5.0-9.0); Specific Gravity - Urine <= 1.005 (1.005-1.025); UMIC TRIGGER UA YES; Urine Blood Negative (Negative); Urine Ketones Negative (Negative); Urine Protein Negative (Neg-Trace)
[2022-04-11 09:30] LABS: Bacteria Urine None Seen (None Seen); Hyaline Casts Urine 0-2 /LPF (0-2); RBC Urine 0-2 /HPF (0-2); Squamous Epithelial Cell Urine 0-2 /HPF (0-2); WBC Urine 0-5 /HPF (0-5)
[2022-04-11 09:41] LABS: Cholesterol 146 mg/dL; HDL Cholesterol 46 mg/dL; LDL Cholesterol Calculated 78 mg/dl; Triglycerides 110 mg/dL
[2022-04-14 08:37] LABS: HIV RNA PCR Qn Copies NOT DETECTED copies/mL (NOT DETECTED); HIV RNA PCR Qn Log Copies NOT DETECTED (NOT DETECTED)
[2022-04-15 08:22] LABS: Absolute CD3 Count 1279 cells/uL (840-3060); Absolute CD4 Count 678 cells/uL (490-1740); Absolute CD8 Count 635 cells/uL (180-1170); Absolute Lymphocytes 1474 cells/uL (850-3900); CD4 CD8 Ratio 1.07 (0.86-5.00); Percent CD3 Cells 87 % (57-85); Percent CD4 Cells 46 % (30-61); Percent CD8 Cells 43 % (12-42)
== END 2022-04-11 08:42 | disposition home or self-care (01) ==
LOC: HO.LAB 08:41
PROVIDERS: PCP Nurse Practitioner Primary Care; Visit Provider Internal Medicine
DX: B20 Human immunodeficiency virus [HIV] disease (principal)
CPT/HCPCS: 36415; 80061; 81001; 85025; 86359; 86360; 87536

== ENCOUNTER 2022-05-20 10:34 | Outpatient (REF) | payer MEDICARE, MEDICAID, SELFPAY ==
--- NOTE | ~2022-05-20 | MM_ITS ---
EXAMINATION: MM SCREENING DIGITAL BREAST TOMOSYNTHESIS, BILATERAL CLINICAL INFORMATION: Screening. Asymptomatic. The lifetime risk of breast cancer based on the Tyrer-Cuzick Model is 4%. COMPARISON: Mammography: 05/17/2021, 05/15/2020, 07/12/2019, 05/10/2019 TECHNIQUE: Digital breast tomosynthesis is performed in both the craniocaudal and mediolateral oblique views along with computer-aided detection (CAD). Synthesized 2D images are generated from the tomosynthesis. FINDINGS: There are scattered areas of fibroglandular density (ACR BI-RADS breast composition Category b). There are no significant masses, abnormal calcifications, or other abnormalities. Breast tissue composition borders on predominantly fatty. Background stromal markings are similar to prior studies. Again, there are scattered bilateral benign round and rim calcifications. A dermal lesion is again noted left breast posterior lower inner quadrant. The axilla are unremarkable. No significant changes. MM/MM tomosynthesis screening BI IMPRESSION: No mammographic evidence of malignancy. ASSESSMENT: BI-RADS 2: Benign RECOMMENDATION: Routine annual mammography screening. This patient's information was entered into a reminder system with a target due date for their next mammogram.
== END 2022-05-20 10:35 | disposition home or self-care (01) ==
LOC: HO.MAMMO 10:34
PROVIDERS: PCP Nurse Practitioner Primary Care; Visit Provider Nurse Practitioner Primary Care
DX: Z12.31 Encounter for screening mammogram for malignant neoplasm of breast (principal)
CPT/HCPCS: 77063; 77067

== ENCOUNTER → 2022-06-04 14:07 | Outpatient (BNVA) | payer MEDICARE, MEDICAID, SELFPAY | PROVIDERS: PCP Nurse Practitioner Primary Care; Visit Provider Nurse Practitioner Family | DX: N32.81 Overactive bladder (principal); N39.46 Mixed incontinence | CPT/HCPCS: 51798; 99212 ==

== ENCOUNTER → 2022-08-29 09:18 | Outpatient (BNVA) | payer MEDICARE, MEDICAID, SELFPAY | PROVIDERS: PCP Internal Medicine; Visit Provider Nurse Practitioner Family | DX: Z51.81 Encounter for therapeutic drug level monitoring (principal); M79.7 Fibromyalgia; M47.816 Spondylosis without myelopathy or radiculopathy, lumbar region; F11.20 Opioid dependence, uncomplicated; M21.612 Bunion of left foot; M21.611 Bunion of right foot | CPT/HCPCS: 99212 ==

== ENCOUNTER 2022-10-08 09:19 | Outpatient (REF) | payer MEDICARE, MEDICAID, SELFPAY ==
[2022-10-08 10:43] LABS: Amphetamine Screen Urine Not Detected (Not Detect); Barbiturates, Urine Not Detected (Not Detect); Benzodiazepines Screen Urine Not Detected (Not Detect); Cannabinoid Screen Urine Not Detected (Not Detect); Cocaine Screen Urine Not Detected (Not Detect); Fentanyl, urine Not Detected (Not Detect); Opiate Screen Urine Not Detected (Not Detect); Phencyclidine Screen Urine Not Detected (Not Detect)
== END 2022-10-08 09:20 | disposition home or self-care (01) ==
LOC: HO.LAB 09:19
PROVIDERS: PCP Nurse Practitioner Primary Care; Visit Provider Nurse Practitioner Family
DX: Z79.899 Other long term (current) drug therapy (principal)
CPT/HCPCS: 80307; 80373

== ENCOUNTER 2022-10-13 10:54 | Outpatient (REF) | payer MEDICARE, MEDICAID, SELFPAY ==
[2022-10-13 11:33] LABS: MANUAL DIFF FLAG NO
[2022-10-13 12:48] LABS: Basophils Absolute Auto 0.1 X10*3/uL (0.0-0.2); Basophils Percent Auto 0.9 % (0-2); Eosinophils Absolute Auto 0.1 X10*3/uL (0.0-0.4); Eosinophils Percent Auto 1.7 % (0-4); Hematocrit 39.9 % (37.0-47.0); Hemoglobin 13.6 g/dl (12.0-16.0); Imm Gran Abs Auto 0.02 X10*3/uL (0.00-0.03); Imm Gran Pct Auto 0.3 % (0.0-0.4); Lymphocytes Absolute Auto 2.3 X10*3/uL (1.2-4.9); Lymphocytes Percent Auto 35.7 % (20-40); Mean Corpuscular HGB Conc 34.1 g/dl (31.0-35.0); Mean Corpuscular Hemoglobin 31.9 pg (27.0-33.0); Mean Corpuscular Volume 93.7 fL (80.0-98.0); Mean Platelet Volume 12.1 fL (9.4-12.3); Monocytes Absolute Auto 0.5 X10*3/uL (0.1-1.2); Monocytes Percent Auto 8.2 % (2-11); Neutrophils Absolute Auto 3.4 x10*3/uL (2.0-8.3); Neutrophils Percent Auto 53.2 % (45-73); Platelet Count 266 X10*3/uL (160-400); Red Blood Count 4.26 X10*6/uL (4.20-5.50); Red Cell Distribution Width 13.2 % (11.0-16.0); White Blood Count 6.5 X10*3/uL (4.8-10.8)
[2022-10-13 13:19] LABS: Alanine Aminotransferase 14 U/L (0-31); Albumin Level 4.6 g/dL (3.5-5.0); Alkaline Phosphatase 45 U/L (39-117); Anion Gap 12 (12-20); Aspartate Amino Transferase 17 U/L (5-31); Bilirubin Total 0.4 mg/dL (0.0-1.0); Blood Urea Nitrogen 18 mg/dL (9-16); Calcium 9.9 mg/dL (8.4-10.2); Carbon Dioxide 32 mmol/L (22-29); Chloride 102 mmol/L (96-108); Estimated Glomerular Filt Rate > 60; Glucose Random 100 mg/dL (60-115); Potassium 4.3 mmol/L (3.3-5.1); Sodium 142 mmol/L (135-145); Total Protein 7.4 g/dL (6.5-8.0)
[2022-10-14 15:47] LABS: Absolute CD4 Count 1067 cells/uL (490-1740); Absolute CD8 Count 1014 cells/uL (180-1170); Absolute Lymphocytes 2369 cells/uL (850-3900); CD4 CD8 Ratio 1.05 (0.86-5.00); Percent CD4 Cells 45 % (30-61); Percent CD8 Cells 43 % (12-42)
== END 2022-10-13 10:55 | disposition home or self-care (01) ==
LOC: HO.LAB 10:54
PROVIDERS: Visit Provider Internal Medicine
DX: B20 Human immunodeficiency virus [HIV] disease (principal)
CPT/HCPCS: 36415; 80053; 85025; 86360

== ENCOUNTER 2022-10-29 15:52 | Outpatient (REF) | payer MEDICARE, MEDICAID, SELFPAY ==
[2022-10-31 17:12] LABS: HIV RNA PCR Qn Copies NOT DETECTED copies/mL (NOT DETECTED); HIV RNA PCR Qn Log Copies NOT DETECTED (NOT DETECTED)
== END 2022-10-29 15:53 | disposition home or self-care (01) ==
LOC: HO.LAB 15:52
PROVIDERS: Absent Provider Nurse Practitioner Primary Care; PCP Nurse Practitioner Primary Care; Visit Provider Internal Medicine
DX: B20 Human immunodeficiency virus [HIV] disease (principal)
CPT/HCPCS: 36415; 87536

== ENCOUNTER → 2022-12-03 09:14 | Outpatient (BNVA) | payer MEDICARE, MEDICAID, SELFPAY | PROVIDERS: PCP Nurse Practitioner Primary Care; Visit Provider Nurse Practitioner Family | DX: N39.46 Mixed incontinence (principal); N32.81 Overactive bladder | CPT/HCPCS: 51798; 99212 ==

== ENCOUNTER 2022-12-25 11:04 | Outpatient (REF) | payer MEDICARE, MEDICAID, SELFPAY ==
--- NOTE | ~2022-12-25 | US_ITS ---
EXAMINATION: US THYROID CLINICAL INFORMATION: Nontoxic multinodular goiter. COMPARISON: Ultrasound soft tissue head/neck thyroid dated 09/11/2021 and 03/29/2020. TECHNIQUE: Linear transducer grayscale and color Doppler examination with attention to the region of the thyroid. FINDINGS: SIZE: Measurements of the thyroid lobes and nodules are given in sagittal, anteroposterior and transverse dimensions respectively. Right Thyroid Lobe: 5.3 x 1.5 x 1.9 cm, volume 7.7 mL. Previously 5.1 x 1.7 x 1.5 cm, volume 6.9 mL. Parenchyma: The gland echotexture is homogeneous. Thyroid vascularity is normal. Left Thyroid Lobe: 5.2 x 1.5 x 1.5 cm, volume 6.4 mL. Previously 5.6 x 1.7 x 2.3 cm, volume 11.6 mL. Parenchyma: The gland echotexture is homogeneous. Thyroid vascularity is increased. Isthmus: 0.3 cm in maximum AP dimension. Previously 0.2 cm. Estimated total number of nodules greater than or equal to 1 cm: 1. Edger Hand nodules are described as follows: 1. Location: Right isthmus. Size: 0.9 x 0.4 x 0.6 cm, volume 0.1 mL. Previously: 0.7 x 0.5 x 0.6 cm, volume 0.1 mL. Nodule characteristics: Composition: Solid/almost completely solid (2). Echogenicity: Hypoechoic (2). Shape: Not taller than wide (0). Margins: Ill-defined (0). Echogenic Foci: Macrocalcifications (1). ACR TI-RADS total points: 5 Previous: 0 ACR TI-RADS category: 4 Previous: 1 Significant change in size (>/= 20% in 2 dimensions and minimal increase of 2 mm or 50% or greater increase in volume): No Change in features: Yes Change in ACR TI-RADS risk category: Yes 2. Location: Right superior/mid. Size: 0.5 x 0.4 x 0.5 cm, volume 0.1 mL. Previously: 0.5 x 0.4 x 0.4 cm, volume 0.06 mL. Nodule characteristics: Composition: Mixed cystic and solid (1). Echogenicity: Cannot be determined (1). Shape: Not taller than wide (0). Margins: Ill-defined (0). Echogenic Foci: None (0). ACR TI-RADS total points: 2 Previous: 7 ACR TI-RADS category: 2 Previous: 5 Significant change in size (>/= 20% in 2 dimensions and minimal increase of 2 mm or 50% or greater increase in volume): No Change in features: Yes Change in ACR TI-RADS risk category: Yes 3. Location: Right mid. Size: 1.0 x 0.8 x 1.0 cm, volume 0.4 mL. Previously: 1.0 x 0.6 x 0.8 cm, volume 0.3 mL. Nodule characteristics: Composition: Solid/almost completely solid (2). Echogenicity: Hypoechoic (2). Shape: Not taller than wide (0). Margins: Smooth (0). Echogenic Foci: Macrocalcifications (1). ACR TI-RADS total points: 5 Previous: 5 ACR TI-RADS category: 4 Previous: 4 Significant change in size (>/= 20% in 2 dimensions and minimal increase of 2 mm or 50% or greater increase in volume): No Change in features: No Change in ACR TI-RADS risk category: No 4. Location: Left superior/mid. Size: 0.9 x 0.5 x 0.9 cm, volume 0.2 mL. Previously: 1.1 x 0.7 x 1.1 cm, volume 0.4 mL. Nodule characteristics: Composition: Solid/almost completely solid (2). Echogenicity: Isoechoic (1). Shape: Not taller than wide (0). Margins: Ill-defined (0). Echogenic Foci: None (0). ACR TI-RADS total points: 3 Previous: 3 ACR TI-RADS category: 3 Previous: 3 Significant change in size (>/= 20% in 2 dimensions and minimal increase of 2 mm or 50% or greater increase in volume): No Change in features: No Change in ACR TI-RADS risk category: No 5. Location: Left superior/mid. Size: 0.6 x 0.5 x 0.6 cm, volume 0.1 mL. Previously: 0.7 x 0.5 x 0.7 cm, volume 0.1 mL. Nodule characteristics: Composition: Spongiform (0). Echogenicity: Cannot be determined (1). Shape: Not taller than wide (0). Margins: Smooth (0). Echogenic Foci: None (0). ACR TI-RADS total points: 0 Previous: 0 ACR TI-RADS category: 1 Previous: 1 Significant change in size (>/= 20% in 2 dimensions and minimal increase of 2 mm or 50% or greater increase in volume): No Change in features: No Change in ACR TI-RADS risk category: No NODES: No lymphadenopathy is seen in the tissue surrounding the thyroid gland. US/US thyroid IMPRESSION: Routine sonographic surveillance of right mid nodule. ACR TI-RADS RECOMMENDATION REFERENCE: Ultrasound-guided fine-needle aspiration, followup ultrasound, no further follow up. * TR1 (0 point) and TR2 (2 points): No FNA or follow up * TR3 (3 points): FNA if more than or equal to 2.5 cm in maximum dimension, followup ultrasound in 1, 3 and 5 years if 1.5 to 2.4 cm in maximum dimension. * TR4 (4-6 points): FNA if more than or equal to 1.5 cm in maximum dimension, followup ultrasound in 1, 2, 3 and 5 years if 1 to 1.4 cm in maximum dimension. * TR5 (more than or equal to 7 points): FNA if more than or equal to 1 cm in maximum dimension, followup ultrasound every year for 5 years if 0.5 to 0.9 cm in maximum dimension. * TR3, TR4 or TR5 nodules that are below the size threshold for follow up receive no follow up.
== END 2022-12-25 11:05 | disposition home or self-care (01) ==
LOC: HO.US 11:04
PROVIDERS: PCP Nurse Practitioner Primary Care; Visit Provider Internal Medicine
DX: E04.2 Nontoxic multinodular goiter (principal)
CPT/HCPCS: 76536

== ENCOUNTER 2023-03-12 09:42 | Outpatient (REF) | payer MEDICARE, MEDICAID, SELFPAY ==
[2023-03-12 11:20] LABS: Free T4 (Free Thyroxine) 0.94 ng/dL (0.71-1.85); Thyroid Stimulating Hormone 0.92 uIU/mL (0.32-4.0); Vitamin D 25-OH Total 52.7 ng/mL (>30)
[2023-03-12 11:21] LABS: Appearance Urine Clear; Color Urine Yellow; Glucose Urine UA Negative (Negative); Leukocyte Esterase Urine Moderate (2+) (Negative); Nitrite Urine Negative (Negative); Specific Gravity - Urine <= 1.005 (1.005-1.025); UMIC TRIGGER UA YES; Urine Blood Negative (Negative); Urine Ketones Negative (Negative); Urine Protein Negative (Neg-Trace)
[2023-03-12 11:24] LABS: Bacteria Urine Trace (None Seen); Hyaline Casts Urine 0-2 /LPF (0-2); RBC Urine 0-2 /HPF (0-2); Squamous Epithelial Cell Urine 0-2 /HPF (0-2)
== END 2023-03-12 09:43 | disposition home or self-care (01) ==
LOC: HO.LAB 09:42
PROVIDERS: Internal Medicine; PCP Nurse Practitioner Primary Care; Visit Provider Nurse Practitioner Family
DX: N39.46 Mixed incontinence (principal); E04.2 Nontoxic multinodular goiter; E55.9 Vitamin D deficiency, unspecified
CPT/HCPCS: 36415; 81001; 82306; 84439; 84443; 87086; 87088; 87186

== ENCOUNTER 2023-03-18 09:05 | Outpatient (AMB) | payer MEDICARE, MEDICAID, SELFPAY ==
--- NOTE | 2023-03-18 09:50 | MHC.OFFVIS ---
Intake Vital Signs 03/18/23 10:00 Height 5 ft Weight 165 lb 9.074 oz BMI 32.3 BP 128/72 Blood Pressure Location Lt brachial Position Sitting Pulse 63 Pulse Source Pulse Oximeter Temp 97.5 F Temp Source Skin Pulse Oximetry (%) 97 Oxygen Delivery Method Room Air Intake Visit Reasons: fibromyalgia and osteoarthritis Intake Note: Patient presents today for fibromyalgia and OA follow up. Body And Fender Mechanic Required: No Accompanied by: Self / Same As Patient Allergies cyclobenzaprine Allergy (Intermediate, Verified 03/18/23 09:59) Rash fluticasone [From Advair Diskus] Allergy (Intermediate, Verified 03/18/23 09:59) Swelling ibuprofen [From Motrin] Allergy (Intermediate, Verified 03/18/23 09:59) RASH salmeterol [From Advair Diskus] Allergy (Intermediate, Verified 03/18/23 09:59) Swelling lisinopril [LISINOPRIL] Adverse Reaction (Mild, Verified 03/18/23 09:59) Cough Medication List - Last Reconciled 03/18/23 by Osman Torres MD acetaminophen 500 mg PO Q8H PRN albuterol sulfate 90 mcg/actuation 2 puffs PO Q4-6H PRN amlodipine 5 mg PO DAILY apixaban (Eliquis) 2.5 mg PO BID atorvastatin 20 mg PO DAILY bupropion HCl 150 mg PO BID carvedilol 6.25 mg PO BID cetirizine 10 mg PO DAILY cholecalciferol (vitamin D3) (Vitamin D3) 50 mcg PO DAILY clonazepam 0.5 mg PO DAILY docusate sodium 100 mg PO DAILY dolutegravir (Tivicay) 1 tab PO DAILY emtricitabine-tenofovir alafen 200-25 mg (Descovy) 1 tab PO DAILY fenofibrate micronized 67 mg PO DAILY Flovent HFA 44 mcg/actuation (fluticasone propionate) 2 puffs PO BID NS fluticasone propionate 44 mcg/actuation (Flovent HFA) 2 puffs inhalation DAILY hydrochlorothiazide 50 mg PO QAM ketotifen fumarate 0.025%(0.035%) 1 drp ophthalmic (eye) BID losartan 100 mg PO DAILY mirabegron ER (Myrbetriq) 50 mg PO DAILY 90 days nrpjgdcjalhu-chlr-hutrr acid 18-400 mg-mcg 1 tab PO DAILY omeprazole 20 mg PO BID pregabalin (Lyrica) 200 mg PO BID simethicone 80 mg PO BID PRN sulfamethoxazole-trimethoprim 800-160 mg (Bactrim DS) 1 tab PO BID 7 days HPI HPI Comments History of Present Illness Details The patient returns for evaluation of her fibromyalgia and osteoarthritis. She was last seen in August. At that point tramadol was tapered off as she did not think she needed it. She again reaffirms that she does not want to go back on tramadol. She remains on Lyrica, Tylenol, bupropion and clonidine. She notes pain in the lower back and knees primarily. These pains are worse with more physical activity. [facility] Medical History Anxiety Appendicitis with abscess Arthritis Asthma Colon cancer screening COVID-19 COVID-19 vaccine series completed Fibromyalgia GERD (gastroesophageal reflux disease) Glaucoma H/O esophageal reflux HIV (human immunodeficiency virus infection) HTN (hypertension) Hypercalcemia Hypercholesterolemia Hyperglycemia Mixed incontinence urge and stress Multinodular thyroid Myalgia Myositis Overactive bladder Overweight Pelvic pain Primary osteoarthritis of both knees Pulmonary embolism Rectal pain Urgency incontinence Uterine fibroid Vitamin D deficiency Surgical History H/O colonoscopy Hx of appendectomy Hx of hysterectomy Hx of tubal ligation Family History Father Thyroid cancer Mother Cirrhosis Hypertension Daughter Thyroid cancer Social History Household Members: None Housing: Apartment Are you a primary medicare contact specialist to a significant other at home: No Do you presently have visiting nurse or other home services: Yes (RENTAL COUNTER CLERK) Alcohol intake: former Patient Tobacco Use Status: Former Tobacco user Quit Date: 1996 Tobacco use type: Cigarette Years Smoked: 23 yrs Advance Directives Date on File: 08/05/21 service: No Current occupational status: retired Review of Systems Const Details: Negative for appetite change, weight change, fever, chills, malaise and fatigue Eyes Details: Negative for vision change, dry eyes,headaches and dizziness Card Details: Negative chest pain, edema and syncope Resp Details: Negative for SOB, cough and wheezing GI Details: Negative indigestion/heartburn, nausea, abdominal pain, bowel changes, diarrhea, constipation and bloody stool. Endo Details: Negative for polyuria and polydypsia Lino/Lymph Details: Negative for excessive bruising or bleeding. Physical Exam Vital Signs: Last Vital Signs Temp 97.5 F 03/18/23 10:00 Pulse 63 03/18/23 10:00 BP 128/72 03/18/23 10:00 Pulse Ox 97 03/18/23 10:00 Oxygen Delivery Method Room Air 03/18/23 10:00 BMI result Body Mass Index 32.3 APPEARANCE: Patient in no acute distress EYES no redness, pupils equal and reactive to light, eyelids normal EXTREMITIES: No edema, no calf tenderness, normal peripheral pulses. JOINT EXAM: Cervical Spine:.? Full range of motion without pain; no tenderness. Thoracic Spine:? No tenderness on palpation. Lumbar Spine:? Alignment normal.? Limited flexion due to pain. No tenderness to palpation over the lumbar spine, slight tenderness to palpation over the lumbar spinal muscles more so on the left. Hands:? Normal pain-free range of motion without tenderness, swelling, increased warmth or erythema. 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 Heberden's nodes throughout. Wrists:? Normal pain-free range of motion without tenderness, swelling, increased warmth or erythema. Elbows: Normal pain-free range of motion without tenderness, swelling, increased warmth or erythema. Shoulders:? Full range of motion without pain. No tenderness, weakness, swelling, increased warmth or erythema. Hips:? Full range of motion without pain. Hip bursa:? No tenderness. Knees:?? Normal pain-free range of motion with mild patellofemoral crepitus. There is some minimal medial compartment tenderness but no effusion, swelling, increased warmth or erythema.? Ankles:? Normal pain-free range of motion without tenderness, swelling, increased warmth or erythema. Feet: Normal pain-free range of motion without tenderness, swelling, increased warmth or erythema. Tender points: Mild tenderness to digital palpation at the trapezius, second rib, lateral epicondyle, knees, greater trochanterl area bilaterally. ?? Assessment & Plan Assessment & Plan (1) Lumbar spondylosis: Code(s): M47.816 - Spondylosis without myelopathy or radiculopathy, lumbar region (2) Fibromyalgia: Code(s): M79.7 - Fibromyalgia Plan Once again she does seem to have any signs of an active inflammatory arthritis. There are findings of osteoarthritis in the lumbar spine and knees. She seems to be comfortable with current regimen and I think it could be continued. At this point I do not think she needs rheumatology follow-up. I told her if she has feelings that symptoms are changing or worsen she could give us a call to be re-evaluated. Coding Level of Care Code Est Pt Level 3 (77359) Diagnoses Lumbar spondylosis M47.816 Fibromyalgia M79.7
[2023-03-18 10:00] VITALS: BP 128/72; PULSE 63; TEMP 36.4; O2SAT 97; BMI 32.3
== END 2023-03-18 10:37 | disposition home or self-care (01) ==
PROVIDERS: PCP Nurse Practitioner Primary Care; Visit Provider Internal Medicine Rheumatology
DX: M47.816 Spondylosis without myelopathy or radiculopathy, lumbar region (principal); M79.7 Fibromyalgia
CPT/HCPCS: 99213

== ENCOUNTER → 2023-03-18 09:05 | Outpatient (BNVA) | payer MEDICARE, MEDICAID, SELFPAY | PROVIDERS: PCP Nurse Practitioner Primary Care; Visit Provider Internal Medicine Rheumatology | DX: M47.816 Spondylosis without myelopathy or radiculopathy, lumbar region (principal); M79.7 Fibromyalgia | CPT/HCPCS: 99212 ==

== ENCOUNTER 2023-03-27 10:43 | Outpatient (REF) | payer MEDICARE, MEDICAID, SELFPAY | END 2023-03-27 10:44 | disposition home or self-care (01) | LOC: HO.LAB 10:43 | PROVIDERS: Visit Provider Nurse Practitioner Primary Care | DX: R10.84 Generalized abdominal pain (principal); L65.9 Nonscarring hair loss, unspecified | CPT/HCPCS: 36415; 82150; 83690; 84443 ==

== ENCOUNTER 2023-04-09 10:12 | Outpatient (REF) | payer MEDICARE, MEDICAID, SELFPAY ==
--- NOTE | ~2023-04-09 | MM_ITS ---
EXAMINATION: BONE DENSITOMETRY CLINICAL INDICATION: Other specified disorders of bone density and structure, left thigh. COMPARISON: Previous BD dated 02/20/2021 and baseline BD dated 07/08/2007. TECHNIQUE: Using a ustyme DXA System (software version: 13.1) manufactured by [employer], dual-energy x-ray absorptiometry was performed of the lumbar spine and left hip. The images are of good technical quality. Summary results are attached. FINDINGS: AP SPINE L1-L4: Current: BMD 1.046 g/cm2, Z-score 0.3, T-score -1.1, osteopenia, 5.9% decrease from previous, 3.7% decrease from baseline (<5% change is not significant). Prior: BMD 1.111 g/cm2. Baseline: BMD 1.086 g/cm2. LEFT FEMUR, NECK: Current: BMD 0.889 g/cm2, Z-score 0.4, T-score -1.1, osteopenia. Prior: BMD 0.863 g/cm2. Baseline: BMD 0.938 g/cm2. LEFT FEMUR, TOTAL: Current: BMD 0.999 g/cm2, Z-score 1.1, T-score -0.1, normal, 1.5% increase from previous, 2.8% increase from baseline (<5% change is not significant). Prior: BMD 0.984 g/cm2. Baseline: BMD 0.972 g/cm2. IDENTIFIED RISK FACTORS: Menopause. Hysterectomy. Bilateral oophorectomy. HISTORY OF FRACTURE: None listed. MEDICATIONS: Calcium supplement and/or multivitamin. Vitamin D. MM/XR DEXA axial skeleton IMPRESSION: 1. DIAGNOSIS: Osteopenia based on the lowest T-score value of -1.1 in the lumbar spine and femoral neck applying World Health Organization criteria. 2. 10-YEAR FRACTURE RISK PREDICTION, FRAX: Major osteoporotic fracture (clinical spine, forearm, hip or shoulder) 4.7%. Hip fracture 0.4%. 3. Treatment Recommendations: NOF guidelines recommend consideration for treatment in postmenopausal women and men age 50 and older presenting with the following: -A hip or vertebral (clinical or morphometric) fracture. -T-score less than or equal to -2.5 at the femoral neck or spine after appropriate evaluation to exclude secondary causes. -Low bone mass at the hip or spine and a 10-year fracture probability by FRAX of greater than or equal to 3% for hip fracture or greater than or equal to 20% for major osteoporotic fracture based on the [place] adapted WHO algorithm. 4. Other Recommendations: All treatment decisions require clinical judgment and consideration of individual patient factors, including patient preferences, comorbidities, previous drug use, risk factors not captured in the FRAX model (e.g. frailty, falls, vitamin D deficiency, increased bone turnover, interval significant decline in bone density) and possible under or overestimation of fracture risk by FRAX. Additional medical evaluation for secondary cause of low bone mineral density may be appropriate. FUTURE SCAN RECOMMENDATION: People with diagnosed cases of osteoporosis or at high risk for fracture should have regular bone mineral density tests. For patients eligible for Medicare, routine testing is allowed once every 2 years. The testing frequency can be increased to one year for patients who have rapidly progressing disease, those who are receiving or discontinuing medical therapy to restore bone mass, or have additional risk factors.
== END 2023-04-09 10:13 | disposition home or self-care (01) ==
LOC: HO.MAMMO 10:12
PROVIDERS: PCP Nurse Practitioner Primary Care; Visit Provider Nurse Practitioner Primary Care
DX: Z13.820 Encounter for screening for osteoporosis (principal); M85.852 Other specified disorders of bone density and structure, left thigh; Z78.0 Asymptomatic menopausal state
CPT/HCPCS: 77080

== ENCOUNTER 2023-04-16 06:54 | Outpatient (REF) | payer MEDICARE, MEDICAID, SELFPAY ==
[2023-04-16 07:15] LABS: MANUAL DIFF FLAG NO
[2023-04-16 07:52] LABS: Basophils Percent Auto 0.7 % (0-2); Eosinophils Absolute Auto 0.1 X10*3/uL (0.0-0.4); Eosinophils Percent Auto 1.5 % (0-4); Hematocrit 38.9 % (37.0-47.0); Hemoglobin 13.2 g/dl (12.0-16.0); Imm Gran Abs Auto 0.02 X10*3/uL (0.00-0.03); Imm Gran Pct Auto 0.3 % (0.0-0.4); Lymphocytes Absolute Auto 1.7 X10*3/uL (1.2-4.9); Lymphocytes Percent Auto 29.1 % (20-40); Mean Corpuscular HGB Conc 33.9 g/dl (31.0-35.0); Mean Corpuscular Hemoglobin 30.8 pg (27.0-33.0); Mean Corpuscular Volume 90.7 fL (80.0-98.0); Mean Platelet Volume 11.9 fL (9.4-12.3); Monocytes Absolute Auto 0.5 X10*3/uL (0.1-1.2); Monocytes Percent Auto 7.7 % (2-11); Neutrophils Absolute Auto 3.6 x10*3/uL (2.0-8.3); Neutrophils Percent Auto 60.7 % (45-73); Platelet Count 267 X10*3/uL (160-400); Red Blood Count 4.29 X10*6/uL (4.20-5.50); Red Cell Distribution Width 13.2 % (11.0-16.0); White Blood Count 5.9 X10*3/uL (4.8-10.8)
[2023-04-16 08:14] LABS: Alanine Aminotransferase 12 U/L (0-31); Albumin Level 4.2 g/dL (3.5-5.0); Alkaline Phosphatase 45 U/L (39-117); Anion Gap 14 (12-20); Aspartate Amino Transferase 19 U/L (5-31); Bilirubin Total 0.3 mg/dL (0.0-1.0); Blood Urea Nitrogen 16 mg/dL (9-16); Calcium 9.7 mg/dL (8.4-10.2); Carbon Dioxide 28 mmol/L (22-29); Chloride 103 mmol/L (96-108); Estimated Glomerular Filt Rate > 60; Glucose Random 150 mg/dL (60-115); Potassium 3.4 mmol/L (3.3-5.1); Sodium 142 mmol/L (135-145); Total Protein 7.3 g/dL (6.5-8.0)
[2023-04-16 08:15] LABS: Cholesterol 143 mg/dL (<200); HDL Cholesterol 36 mg/dL (>40); LDL Cholesterol Calculated 81 mg/dL (<100); Triglycerides 133 mg/dL (<150)
[2023-04-16 08:21] LABS: Reflex LDLD? No
[2023-04-16 08:40] LABS: Appearance Urine Cloudy; Color Urine Yellow; Glucose Urine UA Negative (Negative); Leukocyte Esterase Urine Trace (Negative); Nitrite Urine Negative (Negative); Specific Gravity - Urine 1.015 (1.005-1.025); UMIC TRIGGER UA YES; Urine Blood Negative (Negative); Urine Ketones Negative (Negative); Urine Protein Negative (Neg-Trace)
[2023-04-16 08:45] LABS: Bacteria Urine None Seen (None Seen); Hyaline Casts Urine 0-2 /LPF (0-2); RBC Urine 0-2 /HPF (0-2); Squamous Epithelial Cell Urine 0-2 /HPF (0-2); WBC Urine 0-5 /HPF (0-5)
[2023-04-17 12:03] LABS: Absolute CD3 Count 1462 cells/uL (840-3060); Absolute CD4 Count 773 cells/uL (490-1740); Absolute CD8 Count 710 cells/uL (180-1170); Absolute Lymphocytes 1699 cells/uL (850-3900); CD4 CD8 Ratio 1.09 (0.86-5.00); Percent CD3 Cells 86 % (57-85); Percent CD4 Cells 45 % (30-61); Percent CD8 Cells 42 % (12-42)
[2023-04-18 13:18] LABS: HIV RNA PCR Qn Copies NOT DETECTED copies/mL (NOT DETECTED); HIV RNA PCR Qn Log Copies NOT DETECTED (NOT DETECTED)
[2023-04-18 22:34] LABS: TS Negative Control Passed; TS Panel A 0; TS Panel B 0; TS Positive Control Passed; TSpotTB Negative (Negative)
== END 2023-04-16 06:55 | disposition home or self-care (01) ==
LOC: HO.LAB 06:54
PROVIDERS: Visit Provider Internal Medicine
DX: B20 Human immunodeficiency virus [HIV] disease (principal); I10 Essential (primary) hypertension
CPT/HCPCS: 36415; 80053; 80061; 81001; 85025; 86359; 86360; 86481; 87536

== ENCOUNTER 2023-04-22 09:34 | Outpatient (AMB) | payer MEDICARE, MEDICAID, SELFPAY ==
[2023-04-22 09:39] VITALS: BP 110/62; PULSE 66; O2SAT 97; BMI 30.9
--- NOTE | 2023-04-22 09:39 | A.OFFVIS_ITS ---
Intake Vital Signs 04/22/23 09:39 Height 5 ft Weight 158 lb BMI 30.9 BP 110/62 Blood Pressure Location Rt brachial Position Sitting Pulse 66 Pulse Source Doppler Pulse Oximetry (%) 97 Oxygen Delivery Method Room Air Intake Visit Reasons: Dyspnea Allergies cyclobenzaprine Allergy (Intermediate, Verified 03/18/23 09:59) Rash fluticasone [From Advair Diskus] Allergy (Intermediate, Verified 03/18/23 09:59) Swelling ibuprofen [From Motrin] Allergy (Intermediate, Verified 03/18/23 09:59) RASH salmeterol [From Advair Diskus] Allergy (Intermediate, Verified 03/18/23 09:59) Swelling lisinopril [LISINOPRIL] Adverse Reaction (Mild, Verified 03/18/23 09:59) Cough HPI Dyspnea HPI Details 67-year-old lady, with underlying histor y of HIV?on HAART, former 25+ pack-year smoker, quit 2007, followed for mild persistent asthma.? She continues to use Flovent 44 and albuterol MDI with good control of her underlying symptoms.? Patient denies any recent asthma exacerbations.? [facility] Medical History Anxiety Appendicitis with abscess Arthritis Asthma Colon cancer screening COVID-19 COVID-19 vaccine series completed Fibromyalgia GERD (gastroesophageal reflux disease) Glaucoma H/O esophageal reflux HIV (human immunodeficiency virus infection) HTN (hypertension) Hypercalcemia Hypercholesterolemia Hyperglycemia Mixed incontinence urge and stress Multinodular thyroid Myalgia Myositis Overactive bladder Overweight Pelvic pain Primary osteoarthritis of both knees Pulmonary embolism Rectal pain Urgency incontinence Uterine fibroid Vitamin D deficiency Surgical History H/O colonoscopy Hx of appendectomy Hx of hysterectomy Hx of tubal ligation Family History Father Thyroid cancer Mother Cirrhosis Hypertension Daughter Thyroid cancer Social History Household Members: None Housing: Apartment Are you a primary health care liaison to a significant other at home: No Do you presently have visiting nurse or other home services: Yes (BEDSPREAD SEAMER) Alcohol intake: former Patient Tobacco Use Status: Former Tobacco user Quit Date: 1996 Tobacco use type: Cigarette Years Smoked: 23 yrs Advance Directives Date on File: 08/05/21 service: No Current occupational status: retired Review of Systems Const Denies daytime sleepiness, Denies excessive sweating, Denies fatigue, Denies fever(s), Denies lethargy, Denies malaise, Denies night sweats, Denies snoring and Denies weight loss Eyes Denies blurry vision and Denies itchy eyes ENT Denies nasal congestion, Denies post nasal drip, Denies sinus pain, Denies sinus pressure and Denies other ( Thrush) Card Denies chest pain, Denies pedal edema, Denies dyspnea, Denies orthopnea and Denies paroxysmal nocturnal dyspnea Resp Denies cough, Denies hemoptysis, Denies excessive phlegm production, Denies dyspnea, Denies snoring and Denies wheezing GI Denies abdominal pain and Denies heartburn Musc Denies myalgias, Denies arthralgias and Denies joint swelling Skin/Breast Denies rash Neuro Denies memory loss and Denies seizure-like activity Psych Denies abnormal sleep pattern, Denies anxiety and Denies memory loss Endo Denies excessive sweating, Denies fatigue and Denies heat intolerance Lino/Lymph Denies easy bruising Aller/Immun Denies itchy eyes, Denies seasonal rhinorrhea and Denies wheezing Physical Exam Vital Signs: Last Vital Signs Pulse 66 04/22/23 09:39 BP 110/62 04/22/23 09:39 Pulse Ox 97 04/22/23 09:39 Oxygen Delivery Method Room Air 04/22/23 09:39 BMI result Body Mass Index 30.9 Const General: no acute distress and alert Nutritional Appearance: not obese Orientation/consciousness: Other orientation findings ( oriented) HEENT Head: Yes atraumatic Eyes General: appearance normal, both eyes and all related structures Sclerae: sclerae normal EOM: EOMs intact bilaterally Neck Neck: Yes supple Lymphatic: no lymphadenopathy noted Resp Effort & Inspection: normal respiratory effort and no use of accessory muscles Auscultation: clear to auscultation bilaterally Cardio Rate: regular rate Rhythm: regular rhythm Heart sounds: no gallops, no murmurs and no rubs Skin General skin exam: other ( warm) Extrem General: No clubbing, No cyanosis and No edema Assessment & Plan Assessment & Plan (1) Mild persistent asthma: Code(s): J45.30 - Mild persistent asthma, uncomplicated Plan: Well controlled current regimen of Flovent 44 and albuterol MDI. Continue current regimen. Coding Level of Care Code Est Pt Level 3 (01146) Diagnoses Mild persistent asthma J45.30
== END 2023-04-22 09:50 | disposition home or self-care (01) ==
PROVIDERS: PCP Nurse Practitioner Primary Care; Visit Provider Internal Medicine Pulmonary Disease
DX: J45.30 Mild persistent asthma, uncomplicated (principal)
CPT/HCPCS: 99213

== ENCOUNTER → 2023-04-22 09:34 | Outpatient (BNVA) | payer MEDICARE, MEDICAID, SELFPAY | PROVIDERS: PCP Nurse Practitioner Primary Care; Visit Provider Internal Medicine Pulmonary Disease | DX: J45.30 Mild persistent asthma, uncomplicated (principal); Z87.891 Personal history of nicotine dependence | CPT/HCPCS: 99212 ==

== ENCOUNTER 2023-05-12 09:09 | Outpatient (AMB) | payer MEDICARE, MEDICAID, SELFPAY ==
--- NOTE | 2023-05-12 09:10 | MHC.OFFVIS ---
Intake Vital Signs 05/12/23 09:11 Height 5 ft Weight 164 lb 3.91 oz BMI 32.1 BP 150/72 H Blood Pressure Location Lt brachial Position Sitting Pulse 69 Pulse Source Pulse Oximeter Intake Visit Reasons: F/U NTMNG Intake Note: Patient present for NTMNG follow up. Previously followed by Dr. Sandhu. Marketing Officer Required: No Accompanied by: Self / Same As Patient Allergies cyclobenzaprine Allergy (Intermediate, Verified 05/12/23 09:22) Rash fluticasone [From Advair Diskus] Allergy (Intermediate, Verified 05/12/23 09:22) Swelling ibuprofen [From Motrin] Allergy (Intermediate, Verified 05/12/23 09:22) RASH salmeterol [From Advair Diskus] Allergy (Intermediate, Verified 05/12/23 09:22) Swelling lisinopril [LISINOPRIL] Adverse Reaction (Mild, Verified 05/12/23 09:22) Cough Medication List - Last Reconciled 05/12/23 by David Chawla MD acetaminophen 500 mg PO Q8H PRN albuterol sulfate 90 mcg/actuation 2 puffs PO Q4-6H PRN amlodipine 5 mg PO DAILY apixaban (Eliquis) 2.5 mg PO BID atorvastatin 20 mg PO DAILY bupropion HCl 150 mg PO BID carvedilol 6.25 mg PO BID cetirizine 10 mg PO DAILY cholecalciferol (vitamin D3) (Vitamin D3) 50 mcg PO DAILY clonazepam 0.5 mg PO DAILY docusate sodium 100 mg PO DAILY dolutegravir (Tivicay) 1 tab PO DAILY emtricitabine-tenofovir alafen 200-25 mg (Descovy) 1 tab PO DAILY fenofibrate micronized 67 mg PO DAILY Flovent HFA 44 mcg/actuation (fluticasone propionate) 2 puffs PO BID NS fluticasone propionate 44 mcg/actuation (Flovent HFA) 2 puffs inhalation DAILY hydrochlorothiazide 50 mg PO QAM ketotifen fumarate 0.025%(0.035%) 1 drp ophthalmic (eye) BID losartan 100 mg PO DAILY mirabegron ER (Myrbetriq) 50 mg PO DAILY 90 days uioeroqczknk-eskj-zblyv acid 18-400 mg-mcg 1 tab PO DAILY omeprazole 20 mg PO BID pregabalin (Lyrica) 200 mg PO BID simethicone 80 mg PO BID PRN HPI HPI Comments History of Present Illness Details 66 YO F with PMHx HIV who is seen in F/U for a NTMNG. The patient last saw Dr. Sandhu on 03/13/2022 Was initially diagnosed with multinodular thyroid in June 2019 with thyroid US revealing multiple bilateral nodules. She was asked to have the thyroid US repeated in March 2020, but this was not completed due to a COVID 19 infection. She did have a CT of the chest which mentioned a multinodular thyroid and she was subsequently referred to Endocrinology. She underwent FNA biopsy of her RMP 1.8 cm nodule and her Isthmus 1.0 cm nodule 08/09/2020. Cytology for both of these nodules was Benign. She underwent a repeat thyroid US 08/2021 which revealed growth of some of her nodules. She presented for FNA biopsy 02/27/2022 but the nodules were found to have not been significantly changed from prior, and no repeat FNA biopsy was indicated. Currently denies any dysphagia or hoarseness of voice. Denies sensation of swelling in the neck or difficulty breathing while lying flat. Denies any tenderness in the neck. Denies any symptoms of hyper or hypothyroidism. Denies any history of head or neck irradiation. Does have a family history of thyroid cancer in her Father and her Daughter. Thyroid US: 09/11/2021 Right Thyroid Lobe: 5.1 x 1.7 x 1.5 cm, volume 6.95 mL. Previously 5.5 x 2.0 x 2.0 cm, volume 11.5 mL. Parenchyma: The gland echotexture is homogeneous. Thyroid vascularity is normal. Left Thyroid Lobe: 5.6 x 1.7 x 2.3 cm, volume 11.6 mL. Previously 5.5 x 1.4 x 1.8 cm, volume 7.2 mL. Parenchyma: The gland echotexture is homogeneous. Thyroid vascularity is normal. Isthmus: 0.34 cm in maximum AP dimension. Previously 0.40 cm. Estimated total number of nodules greater than or equal to 1 cm: 2. Universal Branch Consultant nodules are described as follows: 1.? Location: Right mid. ?? ? Size: 1.04 x 0.67 x 0.82 cm, volume 0.30 mL. ?? ? Previously: Not seen on the previous study. ?? ? Nodule characteristics: ?? ? Composition: Mixed cystic and solid (1). ?? ? Echogenicity: Very hypoechoic (3). ?? ? Shape: Not taller than wide (0). ?? ? Margins: Smooth (0). ?? ? Echogenic Foci: Macrocalcifications (1). ?? ? ACR TI-RADS total points: 5 ?? ? ACR TI-RADS category: 4 ?? ? 2.? Location: Right superior. ?? ? Size: 0.57 x 0.44 x 0.44 cm, volume 0.06 mL. ?? ? Previously: Not seen on the previous study. ?? ? Nodule characteristics: ?? ? Composition: Mixed cystic and solid (1). ?? ? Echogenicity: Very hypoechoic (3). ?? ? Shape: Taller than wide (3). ?? ? Margins: Smooth (0). ?? ? Echogenic Foci: None (0). ?? ? ACR TI-RADS total points: 7 ?? ? ACR TI-RADS category: 5 ?? ? 3.? Location: Left superior. ?? ? Size: 0.79 x 0.53 x 0.70 cm, volume 0.15 mL. ?? ? Previously: 0.72 x 0.41 x 0.55 cm, volume 0.08 mL. ?? ? Nodule characteristics: ?? ? Composition: Spongiform (0). ?? ? Echogenicity: Anechoic (0). ?? ? Shape: Not taller than wide (0). ?? ? Margins: Smooth (0). ?? ? Echogenic Foci: None (0). ?? ? ACR TI-RADS total points: 0 ?? ? ACR TI-RADS category: 1 ?? ? 4.? Location: Left superior. ?? ? Size: 1.1 x 0.72 x 1.1 cm, volume 0.46 mL. ?? ? Previously: 1.1 x 0.70 x 0.91 cm, volume 0.37 mL. ?? ? Nodule characteristics: ?? ? Composition: Mixed cystic and solid (1). ?? ? Echogenicity: Hypoechoic (2). ?? ? Shape: Not taller than wide (0). ?? ? Margins: Smooth (0). ?? ? Echogenic Foci: None (0). ?? ? ACR TI-RADS total points: 3 ?? ? ACR TI-RADS category: 3 ?? ? 5.? Location: Right isthmus. ?? ? Size: 0.71 x 0.56 x 0.64 cm, volume 0.14 mL. ?? ? Previously: 1.1 x 0.55 x 0.84 cm, volume 0.27 mL. ?? ? Nodule characteristics: ?? ? Composition: Spongiform (0). ?? ? Echogenicity: Anechoic (0). ?? ? Shape: Not taller than wide (0). ?? ? Margins: Smooth (0). ?? ? Echogenic Foci: None (0). ?? ? ACR TI-RADS total points: 0 ?? ? ACR TI-RADS category: 1 ? NODES: No lymphadenopathy is seen in the tissue surrounding the thyroid gland. Labs: 01/31/2020 Calcium 10.0 01/11/2020 Vitamin D 24.4 11/21/2019 TSH 0.53 Recent thyroid ultrasound showed does change in the size of the nodules PFSH Medical History Anxiety Appendicitis with abscess Arthritis Asthma Colon cancer screening COVID-19 COVID-19 vaccine series completed Fibromyalgia GERD (gastroesophageal reflux disease) Glaucoma H/O esophageal reflux HIV (human immunodeficiency virus infection) HTN (hypertension) Hypercalcemia Hypercholesterolemia Hyperglycemia Mixed incontinence urge and stress Multinodular thyroid Myalgia Myositis Overactive bladder Overweight Pelvic pain Primary osteoarthritis of both knees Pulmonary embolism Rectal pain Urgency incontinence Uterine fibroid Vitamin D deficiency Surgical History H/O colonoscopy Hx of appendectomy Hx of hysterectomy Hx of tubal ligation Family History Father Thyroid cancer Mother Cirrhosis Hypertension Daughter Thyroid cancer Social History Household Members: None Housing: Apartment Are you a primary career development counselor to a significant other at home: No Do you presently have visiting nurse or other home services: Yes (LAYAWAY CLERK) Alcohol intake: former Patient Tobacco Use Status: Former Tobacco user Quit Date: 1996 Tobacco use type: Cigarette Years Smoked: 23 yrs Advance Directives Date on File: 08/05/21 service: No Current occupational status: retired Physical Exam Vital Signs: Last Vital Signs Pulse 69 05/12/23 09:11 BP 150/72 H 05/12/23 09:11 BMI result Body Mass Index 32.1 Const Other: Thyroid gland is normal size weighs about 15 g . There are no thyroid nodules palpated Assessment & Plan Assessment & Plan (1) Multinodular thyroid: Code(s): E04.2 - Nontoxic multinodular goiter Plan: This 67-year-old female with a history of multinodular goiter status post FNA of a right and isthmus nodule 2020 with benign cytology. Recent thyroid ultrasound showed no change in the size of the nodule. At this point, patient returned to the care of her primary care provider. Perhaps repeat thyroid ultrasound should be checked in about 2-3 years time. If there is any change in the size or characteristics of the nodules, the patient returned back to endocrinology Coding Level of Care Code Est Pt Level 3 (57341) Diagnoses Multinodular thyroid E04.2
[2023-05-12 09:11] VITALS: BP 150/72; PULSE 69; BMI 32.1
== END 2023-05-12 09:30 | disposition home or self-care (01) ==
PROVIDERS: PCP Nurse Practitioner Primary Care; Visit Provider Internal Medicine Endocrinology, Diabetes & Metabolism
DX: E04.2 Nontoxic multinodular goiter (principal)
CPT/HCPCS: 99213

== ENCOUNTER → 2023-05-12 09:09 | Outpatient (BNVA) | payer MEDICARE, MEDICAID, SELFPAY | PROVIDERS: Visit Provider Internal Medicine Endocrinology, Diabetes & Metabolism | DX: E04.2 Nontoxic multinodular goiter (principal) | CPT/HCPCS: 99212 ==

== ENCOUNTER 2023-05-26 09:59 | Outpatient (REF) | payer MEDICARE, MEDICAID, SELFPAY | END 2023-05-26 10:00 | disposition home or self-care (01) | LOC: HO.MAMMO 09:59 | PROVIDERS: PCP Nurse Practitioner Primary Care; Visit Provider Nurse Practitioner Primary Care | DX: Z12.31 Encounter for screening mammogram for malignant neoplasm of breast (principal) | CPT/HCPCS: 77063; 77067 ==

== ENCOUNTER → 2023-05-26 11:00 | Outpatient (BNV) | payer MEDICARE, MEDICAID, SELFPAY | PROVIDERS: PCP Nurse Practitioner Primary Care; Visit Provider Radiology Diagnostic Radiology | DX: Z12.31 Encounter for screening mammogram for malignant neoplasm of breast (principal) | CPT/HCPCS: 77063; 77067 ==

== ENCOUNTER 2023-06-03 09:03 | Outpatient (AMB) | payer MEDICARE, MEDICAID, SELFPAY ==
--- NOTE | 2023-06-03 09:41 | A.OFFVIS_ITS ---
Intake Intake Visit Reasons: 6m/PVR Intake Note: Patient is present for follow up incontinence/PVR Urology Medications: myrbetriq Blood Thinner: apixaban PVR: 0ml's Jewelry Coater Required: Yes Accompanied by: Self / Same As Patient Allergies cyclobenzaprine Allergy (Intermediate, Verified 06/03/23 10:11) Rash fluticasone [From Advair Diskus] Allergy (Intermediate, Verified 06/03/23 10:11) Swelling ibuprofen [From Motrin] Allergy (Intermediate, Verified 06/03/23 10:11) RASH salmeterol [From Advair Diskus] Allergy (Intermediate, Verified 06/03/23 10:11) Swelling lisinopril [LISINOPRIL] Adverse Reaction (Mild, Verified 06/03/23 10:11) Cough Medication List - Last Reconciled 06/03/23 by ANGELIQUE Kaplan-MARISABEL acetaminophen 500 mg PO Q8H PRN albuterol sulfate 90 mcg/actuation 2 puffs PO Q4-6H PRN amlodipine 5 mg PO DAILY apixaban (Eliquis) 2.5 mg PO BID atorvastatin 20 mg PO DAILY bupropion HCl 150 mg PO BID carvedilol 6.25 mg PO BID cetirizine 10 mg PO DAILY cholecalciferol (vitamin D3) (Vitamin D3) 50 mcg PO DAILY clonazepam 0.5 mg PO DAILY docusate sodium 100 mg PO DAILY dolutegravir (Tivicay) 1 tab PO DAILY emtricitabine-tenofovir alafen 200-25 mg (Descovy) 1 tab PO DAILY fenofibrate micronized 67 mg PO DAILY Flovent HFA 44 mcg/actuation (fluticasone propionate) 2 puffs PO BID NS fluticasone propionate 44 mcg/actuation (Flovent HFA) 2 puffs inhalation DAILY hydrochlorothiazide 50 mg PO QAM ketotifen fumarate 0.025%(0.035%) 1 drp ophthalmic (eye) BID losartan 100 mg PO DAILY mirabegron ER (Myrbetriq) 50 mg PO DAILY 90 days opnqbtkwupkj-cedq-sfjlc acid 18-400 mg-mcg 1 tab PO DAILY omeprazole 20 mg PO BID pregabalin (Lyrica) 200 mg PO BID simethicone 80 mg PO BID PRN HPI HPI Comments History of Present Illness Details Alison is a 68 year-old female who is a patient of Dr. Almaraz. She presents to the office today for follow-up of her overactive bladder. She has a past medical history of mixed incontinence urge and stress, mild persistent asthma, fibromyalgia, and vitamin-D deficiency. In discussion with the patient regarding her overactive bladder she reports to be doing extremely well. She reports myrbetriq 50mg daily continues to be working well for her and discusses at length how life changing it has been for her. She discusses her upcoming dental appointment and having a tooth extracted. She otherwise denies any bothersome urinary issues or concerns at this time. In office urinalysis results reviewed with the patient today. PVR 0 mL. She denies any urinary issues at this time. She denies urinary urgency, urinary frequency, incontinence, nocturia, hematuria, dysuria, foul smelling urine, changes to urinary stream, flank pain, fever, and or chills. PFS Medical History (Reviewed 06/03/23 @ 11:17 by [facility]) Mixed incontinence urge and stress Overactive bladder Asthma COVID-19 vaccine series completed Pulmonary embolism Arthritis Glaucoma GERD (gastroesophageal reflux disease) Hyperglycemia Myalgia Myositis Hypercholesterolemia Anxiety H/O esophageal reflux Overweight Primary osteoarthritis of both knees Fibromyalgia Appendicitis with abscess Urgency incontinence Colon cancer screening Uterine fibroid Pelvic pain Rectal pain HTN (hypertension) Hypercalcemia Vitamin D deficiency Multinodular thyroid COVID-19 HIV (human immunodeficiency virus infection) Surgical History H/O colonoscopy Hx of appendectomy Hx of hysterectomy Hx of tubal ligation Family History Father Thyroid cancer Mother Cirrhosis Hypertension Daughter Thyroid cancer Social History Household Members: None Housing: Apartment Are you a primary care center manager to a significant other at home: No Do you presently have visiting nurse or other home services: Yes ([employer]) Alcohol intake: former Patient Tobacco Use Status: Former Tobacco user Quit Date: 1996 Tobacco use type: Cigarette Years Smoked: 23 yrs Advance Directives Date on File: 08/05/21 service: No Current occupational status: retired Review of Systems Const All systems reviewed & are unremarkable except as noted in HPI and below Reports no additional complaints Eyes Reports no additional complaints Card Reports no additional complaints Resp Reports as per HPI GI Reports no additional complaints Reports as per HPI Musc Reports as per HPI Neuro Reports no additional complaints Psych Reports no additional complaints Endo Reports no additional complaints Lino/Lymph Reports no additional complaints Aller/Immun Reports no additional complaints Physical Exam Const General: cooperative, healthy appearing, comfortable, no acute distress, well developed and alert Nutritional Appearance: average body habitus and well nourished Orientation/consciousness: patient oriented x3 Limitations: no limitations HEENT Head: Yes normal to inspection and Yes normocephalic Eyes General: appearance normal, both eyes and all related structures Neck Neck: Yes normal visual inspection and Yes trachea midline Chest Chest palpation & inspection: normal inspection of the chest Resp Effort & Inspection: normal respiratory effort and able to speak in complete sentences Cardio Jugular venous distension: no JVD General: Yes no CVA tenderness Back/Spine/Pelvis Back: no CVA tenderness Neuro General: patient oriented x3 Extrem General: Yes normal to inspection Psych Appearance: grossly normal and well kempt Mental Status: mental status grossly normal Speech and movement: Normal speech and movement present and Clear speech present Affect: normal affect Attitude: cooperative Thought process: Normal thought process present Thought content: Normal thought content present Insight: Good insight present (Psych) Judgement: Good judgement present (Psych) Office Procedures Post Void Residual Post Residual Void Post Void Residual (PVR): 0 [id number] Void Residual by ultrasound Results AMB Urinalysis, Automated UA Leukoctes 0 Beverly/uL Last Edit by [employer] on 06/03/23 10:02 UA Nitrite Negative Last Edit by [employer] on 06/03/23 10:02 UA Urobilinogen 0.2 mg/dL Last Edit by [employer] on 06/03/23 10:02 UA Protein 0 mg/dL Last Edit by [employer] on 06/03/23 10:02 UA pH 7.0 Last Edit by [employer] on 06/03/23 10:02 UA Blood 0 Mejia/uL Last Edit by [employer] on 06/03/23 10:02 UA Specific Lima 1.010 Last Edit by [employer] on 06/03/23 10:02 UA Ketone Negative Last Edit by [employer] on 06/03/23 10:02 UA Bilirubin 0 mg/dL Last Edit by Rahat Frey on 06/03/23 10:02 UA Glucose 0 mg/dL Last Edit by Rahat Frey on 06/03/23 10:02 Results Reviewed Results Reviewed: Laboratory Last Values Urine pH (Auto) 7.0 06/03/23 09:47 Specific Lima (Auto) 1.010 06/03/23 09:47 Urine Protein (Auto) 0 mg/dL 06/03/23 09:47 Glucose (UA)(Auto) 0 mg/dL 06/03/23 09:47 Urine Ketones (Auto) Negative 06/03/23 09:47 Urine Blood (Auto) 0 Mejia/uL 06/03/23 09:47 Urine Nitrite (Auto) Negative 06/03/23 09:47 Urine Bilirubin (Auto) 0 mg/dL 06/03/23 09:47 Urine Urobilinogen (Auto) 0.2 mg/dL 06/03/23 09:47 Leukocyte Esterase (Auto) 0 Beverly/uL 06/03/23 09:47 Assessment & Plan Assessment & Plan (1) Mixed incontinence urge and stress: Code(s): N39.46 - Mixed incontinence (2) Overactive bladder: Code(s): N32.81 - Overactive bladder Plan In office urinalysis results reviewed with the patient today; as noted above PVR 0 mL. Continue Myrbetriq as patient reports significant improvement in urinary symptoms on this medication; refill provided. Discussed importance of drinking adequate amount of water daily. Patient denies any urinary issues or concerns at this time. Follow-up in 6 months with PVR; or sooner with any issues, concerns, and or questions. Orders: Orders AMB Urinalysis Automated Today Z13.9 - Encounter for screening, unspecified AMB Post Void Residual by ultrasound Today N39.46 - Mixed incontinence Medications: Refilled mirabegron ER (Myrbetriq) 50 mg PO DAILY 90 days 90 tabs 3RF N32.81 - Overactive bladder, N39.46 - Mixed incontinence Patient Instructions: The patient had an opportunity to ask questions regarding the treatment plan. All questions were answered. Physical exam, labs, and imaging were discussed and reviewed in detail. As well as risks, benefits, and discussion of treatment choices. No major barriers to understanding were identified. The patient expressed understanding and agreement with the above treatment plan. The patient was made aware they should contact our office by phone for worsening of their current condition, the appearance of new symptoms, or with any questions or concerns. Compliance is encouraged with any medications and follow up testing that is ordered. It is a privilege to be allowed the opportunity to participate in? your urological care.? Again, if you have any questions or concerns If you have any questions or concerns please do not hesitate to contact me. The office is [phone]. This note is constructed using voice recognition software. While every effort has been made to ensure accuracy behavioral sciences department chair errors may have been included. Yours sincerely, ANGELIQUE Kaplan-MARISABEL Coding Level of Care Code Est Pt Level 3 (25925) Diagnoses Mixed incontinence urge and stress N39.46 Overactive bladder N32.81 CPT Codes Post Residual Void - PVR CPT Code: 32775-[id number] Void Residual by ultrasound ([id number])
== END 2023-06-03 10:14 | disposition home or self-care (01) ==
PROVIDERS: PCP Nurse Practitioner Primary Care; Visit Provider Nurse Practitioner Family
DX: N39.46 Mixed incontinence (principal); N32.81 Overactive bladder; Z13.9 Encounter for screening, unspecified
CPT/HCPCS: 99213

== ENCOUNTER → 2023-06-03 09:03 | Outpatient (BNVA) | payer MEDICARE, MEDICAID, SELFPAY | PROVIDERS: PCP Nurse Practitioner Primary Care; Visit Provider Nurse Practitioner Family | DX: N39.46 Mixed incontinence (principal); N32.81 Overactive bladder | CPT/HCPCS: 51798; 81003; 99212 ==

== ENCOUNTER 2023-06-03 11:09 | Emergency (ER) | payer OTHER, MEDICARE, MEDICAID, SELFPAY ==
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
[2023-06-03 11:14] VITALS: BP 175/76; PULSE 79; O2SAT 98
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
--- NOTE | 2023-06-03 11:24 | PC.NURSE ---
to ct scan. provider sydni aware declined c collar
[2023-06-03 11:25] VITALS: BP 135/69; PULSE 74; RESP 16; TEMP 36.6; O2SAT 95; BMI 30.9
[2023-06-03] MEDS: Acetaminophen 325 MG TABLET 650 MG PO (12:01)
[2023-06-03 14:00] VITALS: BP 106/60; PULSE 70; RESP 16; TEMP 36.6; O2SAT 98
== END 2023-06-03 14:13 | disposition home or self-care (01) ==
PROVIDERS: Emergency Provider Student in an Organized Health Care Education/Training Program; PCP Nurse Practitioner Primary Care
DX: Z04.1 Encounter for examination and observation following transport accident (principal); M25.551 Pain in right hip
CPT/HCPCS: 70450; 72125; 73502; 99284

== ENCOUNTER 2023-07-14 09:02 | Emergency (ER) | payer MEDICARE, MEDICAID, SELFPAY ==
[2023-07-14 09:09] VITALS: BP 141/49; PULSE 78; RESP 19; TEMP 36.6; BMI 30.7
[2023-07-14 09:44] LABS: COVID-19 Test Negative (Negative); IDNOW Serial# 152EDE1D
--- NOTE | 2023-07-14 09:51 | ED.GENADULT ---
HPI - General Adult General Chief complaint: Upper Respiratory Symptoms Stated complaint: Cough Etc Time Seen by Provider: 07/14/23 09:51 Source: patient Mode of arrival: ambulatory Limitations: no limitations History of Present Illness HPI narrative: Patient is a 68-year-old female presenting to the emergency department with complaint of cough and shortness of breath for the past 3 days. She denies fevers. Denies chest pain or palpitations. Denies dizziness, lightheadedness. Does report headache which she describes as mild. Has taken Tylenol with some temporary relief. Denies any sick contacts. MD complaint: Cough Onset (ago): day(s) Location: head Severity: mild Severity scale (1-10): 4 Quality: aching Relieving factors: medication Exacerbating factors: none Associated symptoms: cough Treatments prior to arrival: other Related Data Home Medications Medication Instructions Recorded Confirmed acetaminophen 500 mg tablet 500 mg PO Q8H PRN Pain 04/11/20 05/12/23 albuterol sulfate 90 mcg/actuation 2 puff PO Q4-6H PRN Wheezing 04/11/20 05/12/23 aerosol inhaler atorvastatin 20 mg tablet 20 mg PO DAILY 04/11/20 05/12/23 bupropion HCl 150 mg tablet,12 hr 150 mg PO BID 04/11/20 05/12/23 sustained-release clonazepam 0.5 mg tablet 0.5 mg PO DAILY anxiety 04/11/20 05/12/23 docusate sodium 100 mg capsule 100 mg PO DAILY 04/11/20 05/12/23 fenofibrate micronized 67 mg 67 mg PO DAILY 04/11/20 05/12/23 capsule multivitamin-ferrous 1 tab PO DAILY 04/11/20 05/12/23 fumarate-folic acid 18 mg-400 mcg tablet omeprazole 20 mg capsule,delayed 20 mg PO BID 04/11/20 05/12/23 release simethicone 80 mg chewable tablet 80 mg PO BID PRN Constipation 04/11/20 05/12/23 cetirizine 10 mg tablet 10 mg PO DAILY 09/21/20 05/12/23 losartan 100 mg tablet 100 mg PO DAILY 09/21/20 05/12/23 pregabalin 200 mg capsule (Lyrica) 200 mg PO BID 09/21/20 05/12/23 dolutegravir 50 mg tablet (Tivicay) 1 tab PO DAILY 07/29/21 05/12/23 emtricitabine 200 mg-tenofovir 1 tab PO DAILY 07/29/21 05/12/23 alafenamide fumarate 25 mg tablet (Descovy) fluticasone propionate 44 2 puff inhalation DAILY 08/05/21 05/12/23 mcg/actuation HFA aerosol inhaler (Flovent HFA) carvedilol 6.25 mg tablet 6.25 mg PO BID 06/04/22 05/12/23 cholecalciferol (vitamin D3) 50 50 mcg PO DAILY 06/04/22 05/12/23 mcg (2,000 unit) capsule (Vitamin D3) hydrochlorothiazide 50 mg tablet 50 mg PO QAM 06/04/22 05/12/23 ketotifen fumarate 0.025 % (0.035 1 drp ophthalmic (eye) BID 06/04/22 05/12/23 %) eye drops amlodipine 5 mg tablet 5 mg PO DAILY 08/29/22 05/12/23 Previous Rx's Medication Instructions Recorded Flovent HFA 44 mcg/actuation 2 puff PO BID #10.6 grams 01/27/22 aerosol inhaler (fluticasone propionate) mirabegron 50 mg tablet,extended 50 mg PO DAILY 90 days #90 tabs 06/03/23 release 24 hr (Myrbetriq) apixaban 2.5 mg tablet (Eliquis) 2.5 mg PO BID #60 tabs 07/13/23 oseltamivir 75 mg capsule (Tamiflu) 75 mg PO BID 5 days #10 caps 07/14/23 Allergies Allergy/AdvReac Type Severity Reaction Status Date / Time cyclobenzaprine Allergy Intermediate Rash Verified 07/14/23 09:08 fluticasone Allergy Intermediate Swelling Verified 07/14/23 09:08 [From Advair Diskus] ibuprofen [From Motrin] Allergy Intermediate RASH Verified 07/14/23 09:08 salmeterol Allergy Intermediate Swelling Verified 07/14/23 09:08 [From Advair Diskus] lisinopril [LISINOPRIL] AdvReac Mild Cough Verified 07/14/23 09:08 Review of Systems Review of Systems: As per HPI. Yes all other systems are reviewed and are negative Constitutional: Constitutional: Reports as per HPI [facility] Past Medical History Medical History Encounter for medication monitoring Left foot pain Mixed incontinence urge and stress Overactive bladder Asthma COVID-19 vaccine series completed Pulmonary embolism Arthritis Glaucoma GERD (gastroesophageal reflux disease) Hyperglycemia Myalgia Myositis Hypercholesterolemia Anxiety H/O esophageal reflux Overweight Primary osteoarthritis of both knees Fibromyalgia Appendicitis with abscess Urgency incontinence Colon cancer screening Uterine fibroid Pelvic pain Rectal pain HTN (hypertension) Hypercalcemia Vitamin D deficiency Multinodular thyroid COVID-19 HIV (human immunodeficiency virus infection) Surgical History H/O colonoscopy Hx of appendectomy Hx of hysterectomy Hx of tubal ligation Family History Family History Father Thyroid cancer Mother Cirrhosis Hypertension Daughter Thyroid cancer Social History Social History Household Members: None Housing: Apartment Are you a primary critical care cns to a significant other at home: No Do you presently have visiting nurse or other home services: Yes ([employer]) Alcohol intake: current Alcohol intake frequency: holidays/special occasions only Patient Tobacco Use Status: Former Tobacco user Quit Date: 1996 Tobacco use type: Cigarette Years Smoked: 23 yrs Smoked in Last 30 Days: No Use of substances other than those prescribed or required for medical reasons: No Advance Directives: Yes Advance Directives on File: Yes Advance Directives Date on File: 08/05/21 service: No Current occupational status: retired Physical Exam ED Vital Signs: Vital Signs - 24 hr 07/14/23 09:09 07/14/23 10:44 Temperature 98 F 98.2 F Pulse Rate 78 73 Respiratory Rate 19 16 Blood Pressure 141/49 H 134/68 Pulse Oximetry 94 Oxygen Delivery Method Room Air Room Air BMI result Body Mass Index 30.7 Vital signs have been reviewed and appear to be correct. Blood pressure normal. Heart rate normal. Respiratory rate normal. Temperature normal. Oxygen saturation normal. Const General: cooperative, healthy appearing and no acute distress Orientation/consciousness: oriented to person, oriented to place, oriented to time and patient oriented x3 Limitations: no limitations HENMT Head: Yes normocephalic and Yes atraumatic Ears: external ears normal General nose exam: Normal external nose present Face and sinus: Yes face symmetric Mouth: oropharynx normal and moist mucous membranes Throat: Yes uvula midline Eyes Pupils: Equal, round and reactive pupils present Neck Neck: Yes normal visual inspection and Yes supple Resp Effort & Inspection: normal respiratory effort and able to speak in complete sentences Auscultation: clear to auscultation bilaterally Cardio Rate: regular rate Rhythm: regular rhythm Heart sounds: S1 normal heart sound present and S2 normal heart sound present GI Palpation (GI): Soft to palpation and nontender Auscultation: normoactive bowel sounds General: Yes no CVA tenderness Back/Spine/Pelvis Back: no CVA tenderness Skin General skin exam: elasticity normal and turgor normal Neuro General: oriented to person, oriented to place, oriented to time, patient oriented x3, moves all extremities, no focal motor deficits and CN's II-XI intact bilaterally Cranial nerves: Yes Equal, round and reactive pupils present Cognition (Neuro): normal cognition Extrem General: Yes full ROM, Yes no pedal edema and Yes no calf tenderness Psych Mental Status: mental status grossly normal Affect: normal affect Thought process: Normal thought process present Medical Decision Making Medical Decision Making [facility] Narrative: Patient is a 68-year-old female presenting to the emergency department with complaint of cough and shortness of breath for the past 3 days. On exam patient is awake, A+Ox3, VS WNL, afebrile, normal neurological exam without focal deficits, physical exam findings as above. Given reported symptoms and physical exam findings, initial differential includes viral URI, COVID, flu. Flu swab positive for influenza A. Patient updated on results and all questions answered. Patient offered treatment with Tamiflu given her history of asthma, which she is agreeable to. Advised patient to alternate Tylenol and ibuprofen as needed to control pain or fever. Instructed patient follow-up with her primary care provider. Advised patient to ensure adequate rest and adequate fluid intake. Return precautions discussed at bedside. Patient verbalized understanding of and agreement with plan. Differential Diagnosis Differential Diagnoses: The differential diagnosis associated with the presentation includes As per MDM. Lab Data [facility] Lab Attestation statement: I reviewed the patient's lab results. As per MDM. Labs: Lab Results 07/14/23 Range/Units 09:21 COVID-19 (SUZETTE) Negative (Negative) COVID-19 Clin Com See Note Influenza Type A (BEN) Positive A (Negative) Influenza Type B (BEN) Negative (Negative) Influenza A & B Note See Note External Record Review External record reviewed: Inpatient record, Office record and Outpatient record Prescription Management I considered prescription management with: Antiviral Discharge Plan Discharge Clinical Impression: Influenza Patient Disposition: Home, Self-Care Instructions: Influenza (DC), Flu Shot (Vaccine) for Adults (ED) Additional Instructions: You were evaluated in the emergency department today for cough and headache. Your flu test was positive. Your Covid test was negative. You should isolate at home for another 2 days and continue to wear mask or symptomatic after that. You are being prescribed Tamiflu, please take this medication as prescribed. Your symptoms should resolve over time with rest and fluids. You can take 650 mg Tylenol or 600 mg ibuprofen every 6 hours as needed for fever or pain. Please follow-up with your primary care provider for any ongoing symptoms. Return to the emergency department if you develop worsening pain, fever not controlled with Tylenol and ibuprofen, chest pain, dizziness or lightheadedness, or any other concerning symptoms. Prescriptions: New oseltamivir [Tamiflu] 75 mg capsule 75 mg PO BID 5 Days Qty: 10 0RF No Action Flovent HFA 44 mcg/actuation HFA aerosol inhaler 2 puff PO BID Qty: 10.6 6RF Eliquis 2.5 mg Tablet 2.5 mg PO BID Qty: 60 3RF Tivicay 50 mg tablet 1 tab PO DAILY Descovy 200-25 mg tablet 1 tab PO DAILY fluticasone propionate [Flovent HFA] 44 mcg/actuation HFA aerosol inhaler 2 puff inhalation DAILY cetirizine 10 mg tablet 10 mg PO DAILY fenofibrate micronized 67 mg capsule 67 mg PO DAILY acetaminophen 500 mg tablet 500 mg PO Q8H PRN (Reason: Pain) omeprazole 20 mg capsule,delayed release(DR/EC) 20 mg PO BID clonazepam 0.5 mg tablet 0.5 mg PO DAILY atorvastatin 20 mg tablet 20 mg PO DAILY simethicone 80 mg tablet,chewable 80 mg PO BID PRN (Reason: Constipation) albuterol sulfate 90 mcg/actuation HFA aerosol inhaler 2 puff PO Q4-6H PRN (Reason: Wheezing) docusate sodium 100 mg capsule 100 mg PO DAILY bupropion HCl 150 mg tablet sustained-release 12 hr 150 mg PO BID Cerovite Advanced Formula 18-400 mg-mcg tablet 1 tab PO DAILY losartan 100 mg tablet 100 mg PO DAILY pregabalin [Lyrica] 200 mg capsule 200 mg PO BID carvedilol 6.25 mg tablet 6.25 mg PO BID ketotifen fumarate 0.025 % (0.035 %) drops 1 drp ophthalmic (eye) BID hydrochlorothiazide 50 mg tablet 50 mg PO QAM cholecalciferol (vitamin D3) [Vitamin D3] 50 mcg (2,000 unit) capsule 50 mcg PO DAILY amlodipine 5 mg tablet 5 mg PO DAILY Myrbetriq 50 mg tablet extended release 24 hr 50 mg PO DAILY 90 Days Qty: 90 3RF Stand Alone Forms: Work/School Release
[2023-07-14 10:20] LABS: IDNOW Serial# 9DB6401D; Influenza A Positive (Negative); Influenza B2 Negative (Negative)
[2023-07-14 10:44] VITALS: BP 134/68; PULSE 73; RESP 16; TEMP 36.8; O2SAT 94
== END 2023-07-14 11:17 | disposition home or self-care (01) ==
PROVIDERS: Emergency Provider Emergency Medicine Emergency Medical Services; PCP Nurse Practitioner Primary Care
DX: J10.1 Influenza due to other identified influenza virus with other respiratory manifestations (principal); R06.02 Shortness of breath; Z11.52 Encounter for screening for COVID-19
CPT/HCPCS: 87502; 87635; 99283; 99284

== ENCOUNTER 2023-08-25 10:27 | Outpatient (AMB) | payer MEDICARE, MEDICAID, SELFPAY ==
--- NOTE | 2023-08-25 10:55 | A.OFFVIS_ITS ---
Intake Vital Signs 08/25/23 10:57 Height 5 ft Weight 158 lb BMI 30.9 BP 122/64 Blood Pressure Location Lt brachial Position Sitting Pulse 56 Pulse Source Doppler Pulse Oximetry (%) 98 Oxygen Delivery Method Room Air Intake Visit Reasons: dyspnea Allergies cyclobenzaprine Allergy (Intermediate, Verified 08/25/23 11:00) Rash fluticasone [From Advair Diskus] Allergy (Intermediate, Verified 08/25/23 11:00) Swelling ibuprofen [From Motrin] Allergy (Intermediate, Verified 08/25/23 11:00) RASH salmeterol [From Advair Diskus] Allergy (Intermediate, Verified 08/25/23 11:00) Swelling lisinopril [LISINOPRIL] Adverse Reaction (Mild, Verified 08/25/23 11:00) Cough HPI dyspnea HPI Details 67-year-old lady, with underlying histor y of HIV?on HAART, former 25+ pack-year smoker, quit 2007, followed for mild persistent asthma and allergies.? Her symptoms are previously well controlled on Flovent 44 and albuterol MDI, however secondary to manufacturing issues she had to be switched to Arnuity. Patient had a recent exacerbation secondary to influenza, but now has recovered to baseline. Patient has been using cetirizine as needed with good symptomatic control of her underlying allergies. [facility] Medical History Encounter for medication monitoring Left foot pain Mixed incontinence urge and stress Overactive bladder Asthma COVID-19 vaccine series completed Pulmonary embolism Arthritis Glaucoma GERD (gastroesophageal reflux disease) Hyperglycemia Myalgia Myositis Hypercholesterolemia Anxiety H/O esophageal reflux Overweight Primary osteoarthritis of both knees Fibromyalgia Appendicitis with abscess Urgency incontinence Colon cancer screening Uterine fibroid Pelvic pain Rectal pain HTN (hypertension) Hypercalcemia Vitamin D deficiency Multinodular thyroid COVID-19 HIV (human immunodeficiency virus infection) Surgical History H/O colonoscopy Hx of appendectomy Hx of hysterectomy Hx of tubal ligation Family History Father Thyroid cancer Mother Cirrhosis Hypertension Daughter Thyroid cancer Social History Household Members: None Housing: Apartment Are you a primary acute care surgeon to a significant other at home: No Do you presently have visiting nurse or other home services: Yes (HEALTHCARE MANAGEMENT) Alcohol intake: current Alcohol intake frequency: holidays/special occasions only Patient Tobacco Use Status: Former Tobacco user Quit Date: 1996 Tobacco use type: Cigarette Years Smoked: 23 yrs Advance Directives Date on File: 08/05/21 service: No Current occupational status: retired Review of Systems Const Denies daytime sleepiness, Denies excessive sweating, Denies fatigue, Denies fever(s), Denies lethargy, Denies malaise, Denies night sweats, Denies snoring and Denies weight loss Eyes Denies blurry vision and Denies itchy eyes ENT Denies nasal congestion, Denies post nasal drip, Denies sinus pain, Denies sinus pressure and Denies other ( Thrush) Card Denies chest pain, Denies pedal edema, Denies dyspnea, Denies orthopnea and Denies paroxysmal nocturnal dyspnea Resp Denies cough, Denies hemoptysis, Denies excessive phlegm production, Denies dyspnea, Denies snoring and Denies wheezing GI Denies abdominal pain and Denies heartburn Musc Denies myalgias, Denies arthralgias and Denies joint swelling Skin/Breast Denies rash Neuro Denies memory loss and Denies seizure-like activity Psych Denies abnormal sleep pattern, Denies anxiety and Denies memory loss Endo Denies excessive sweating, Denies fatigue and Denies heat intolerance Lino/Lymph Denies easy bruising Aller/Immun Denies itchy eyes, Denies seasonal rhinorrhea and Denies wheezing Physical Exam Vital Signs: Last Vital Signs Pulse 56 08/25/23 10:57 BP 122/64 08/25/23 10:57 Pulse Ox 98 08/25/23 10:57 Oxygen Delivery Method Room Air 08/25/23 10:57 BMI result Body Mass Index 30.9 Const General: no acute distress and alert Nutritional Appearance: not obese Orientation/consciousness: Other orientation findings ( oriented) HEENT Head: Yes atraumatic Eyes General: appearance normal, both eyes and all related structures Sclerae: sclerae normal EOM: EOMs intact bilaterally Neck Neck: Yes supple Lymphatic: no lymphadenopathy noted Resp Effort & Inspection: normal respiratory effort and no use of accessory muscles Auscultation: clear to auscultation bilaterally Cardio Rate: regular rate Rhythm: regular rhythm Heart sounds: no gallops, no murmurs and no rubs Skin General skin exam: other ( warm) Extrem General: No clubbing, No cyanosis and No edema Assessment & Plan Assessment & Plan (1) Asthma: Code(s): J45.909 - Unspecified asthma, uncomplicated Plan: Well controlled on Arnuity and albuterol MDI. Continue current regimen. (2) Environmental allergies: Code(s): Z91.09 - Other allergy status, other than to drugs and biological substances Plan: Well controlled on as needed Zyrtec. Continue current regimen. Medications: Changed From cetirizine 10 mg PO DAILY To cetirizine 10 mg PO DAILY PRN 30 tabs 6RF allergy symptoms 30 days Coding Level of Care Code Est Pt Level 4 (04252) Diagnoses Asthma J45.909 Environmental allergies Z91.09
[2023-08-25 10:57] VITALS: BP 122/64; PULSE 56; O2SAT 98; BMI 30.9
== END 2023-08-25 11:10 | disposition home or self-care (01) ==
PROVIDERS: PCP Nurse Practitioner Primary Care; Visit Provider Internal Medicine Pulmonary Disease
DX: J45.909 Unspecified asthma, uncomplicated (principal); Z91.09 Other allergy status, other than to drugs and biological substances
CPT/HCPCS: 99214

== ENCOUNTER → 2023-08-25 10:27 | Outpatient (BNVA) | payer OTHER, MEDICARE, MEDICAID, SELFPAY | PROVIDERS: PCP Nurse Practitioner Primary Care; Visit Provider Internal Medicine Pulmonary Disease | DX: J45.909 Unspecified asthma, uncomplicated (principal); Z91.09 Other allergy status, other than to drugs and biological substances | CPT/HCPCS: 99212 ==

== ENCOUNTER 2023-09-17 09:52 | Outpatient (REF) | payer MEDICARE, MEDICAID, SELFPAY ==
[2023-09-17 11:23] LABS: MANUAL DIFF FLAG NO
[2023-09-17 11:30] LABS: Basophils Percent Auto 0.5 % (0-2); Eosinophils Absolute Auto 0.1 X10*3/uL (0.0-0.4); Eosinophils Percent Auto 1.3 % (0-4); Hematocrit 38.6 % (37.0-47.0); Hemoglobin 13.2 g/dl (12.0-16.0); Imm Gran Abs Auto 0.04 X10*3/uL (0.00-0.03); Imm Gran Pct Auto 0.5 % (0.0-0.4); Lymphocytes Absolute Auto 1.8 X10*3/uL (1.2-4.9); Mean Corpuscular HGB Conc 34.2 g/dl (31.0-35.0); Mean Corpuscular Hemoglobin 31.1 pg (27.0-33.0); Mean Platelet Volume 11.9 fL (9.4-12.3); Monocytes Absolute Auto 0.5 X10*3/uL (0.1-1.2); Monocytes Percent Auto 6.2 % (2-11); Neutrophils Absolute Auto 6.1 x10*3/uL (2.0-8.3); Neutrophils Percent Auto 70.5 % (45-73); Platelet Count 231 X10*3/uL (160-400); Red Blood Count 4.24 X10*6/uL (4.20-5.50); Red Cell Distribution Width 13.8 % (11.0-16.0); White Blood Count 8.7 X10*3/uL (4.8-10.8)
[2023-09-17 11:41] LABS: Alanine Aminotransferase 13 U/L (0-31); Albumin Level 4.2 g/dL (3.5-5.0); Alkaline Phosphatase 43 U/L (39-117); Anion Gap 12 (12-20); Aspartate Amino Transferase 18 U/L (5-31); Bilirubin Total 0.3 mg/dL (0.0-1.0); Blood Urea Nitrogen 17 mg/dL (9-16); Carbon Dioxide 33 mmol/L (22-29); Chloride 100 mmol/L (96-108); Estimated Glomerular Filt Rate > 60; Glucose Random 139 mg/dL (60-115); Potassium 3.5 mmol/L (3.3-5.1); Sodium 141 mmol/L (135-145); Total Protein 7.5 g/dL (6.5-8.0)
[2023-09-18 11:09] LABS: Absolute CD3 Count 1512 cells/uL (840-3060); Absolute CD4 Count 804 cells/uL (490-1740); Absolute CD8 Count 729 cells/uL (180-1170); Absolute Lymphocytes 1738 cells/uL (850-3900); Percent CD3 Cells 87 % (57-85); Percent CD4 Cells 46 % (30-61); Percent CD8 Cells 42 % (12-42)
[2023-09-22 18:23] LABS: HIV RNA PCR Qn Copies 53 copies/mL (NOT DETECTED); HIV RNA PCR Qn Log Copies 1.72 (NOT DETECTED)
== END 2023-09-17 09:53 | disposition home or self-care (01) ==
LOC: HO.HHCL 09:52
PROVIDERS: Visit Provider Internal Medicine
DX: B20 Human immunodeficiency virus [HIV] disease (principal)
CPT/HCPCS: 36415; 80053; 85025; 86359; 86360; 87536

== ENCOUNTER 2023-09-18 08:25 | Outpatient (REF) | payer MEDICARE, MEDICAID, SELFPAY ==
[2023-09-18 09:35] LABS: Appearance Urine Clear; Color Urine Yellow; Glucose Urine UA Negative (Negative); Leukocyte Esterase Urine Small (1+) (Negative); Nitrite Urine Negative (Negative); UMIC TRIGGER UA YES; Urine Blood Negative (Negative); Urine Ketones Negative (Negative); Urine Protein Negative (Neg-Trace)
[2023-09-18 09:41] LABS: Bacteria Urine 4+ (None Seen); Hyaline Casts Urine 0-2 /LPF (0-2); RBC Urine 0-2 /HPF (0-2); Squamous Epithelial Cell Urine 0-2 /HPF (0-2); WBC Urine 21-50 /HPF (0-5)
== END 2023-09-18 08:26 | disposition home or self-care (01) ==
LOC: HO.LAB 08:25
PROVIDERS: PCP Nurse Practitioner Primary Care; Visit Provider Nurse Practitioner Family
DX: R39.15 Urgency of urination (principal); N32.81 Overactive bladder
CPT/HCPCS: 81001; 87086; 87088; 87186

== ENCOUNTER 2023-09-22 06:33 | Outpatient (REF) | payer MEDICARE, MEDICAID, SELFPAY ==
[2023-09-22 07:31] LABS: Estimated Average Glucose 151 mg/dL; Hemoglobin A1c % 6.9 % (<6.0)
== END 2023-09-22 06:34 | disposition home or self-care (01) ==
LOC: HO.LAB 06:33
PROVIDERS: PCP Nurse Practitioner Primary Care; Visit Provider Nurse Practitioner Primary Care
DX: R73.01 Impaired fasting glucose (principal)
CPT/HCPCS: 36415; 83036

== ENCOUNTER 2023-10-02 06:27 | Outpatient (REF) | payer MEDICARE, MEDICAID, SELFPAY ==
[2023-10-02 07:47] LABS: Estimated Average Glucose 157 mg/dL; Hemoglobin A1c % 7.1 % (<6.0)
[2023-10-02 09:17] LABS: Insulin 19 uU/mL (2-29)
[2023-10-03 07:48] LABS: C Peptide 4.08 ng/mL (0.80-3.85)
[2023-10-06 06:58] LABS: Fructosamine 295 umol/L (205-285)
== END 2023-10-02 06:28 | disposition home or self-care (01) ==
LOC: HO.LAB 06:27
PROVIDERS: PCP Nurse Practitioner Primary Care; Visit Provider Nurse Practitioner Primary Care
DX: R73.09 Other abnormal glucose (principal)
CPT/HCPCS: 36415; 82985; 83036; 83525; 84681

== ENCOUNTER 2023-11-30 10:44 | Outpatient (REF) | payer MEDICARE, MEDICAID, SELFPAY ==
[2023-11-30 12:20] LABS: Appearance Urine Cloudy; Color Urine Yellow; Glucose Urine UA Negative (Negative); Leukocyte Esterase Urine Large (3+) (Negative); Nitrite Urine Negative (Negative); PH 7.5 (5.0-9.0); Specific Gravity - Urine <= 1.005 (1.005-1.025); UMIC TRIGGER UA YES; Urine Blood Small (1+) (Negative); Urine Ketones Negative (Negative); Urine Protein Negative (Neg-Trace)
[2023-11-30 12:45] LABS: Bacteria Urine None Seen (None Seen); Hyaline Casts Urine 0-2 /LPF (0-2); RBC Urine 0-2 /HPF (0-2); Squamous Epithelial Cell Urine 0-2 /HPF (0-2)
== END 2023-11-30 10:45 | disposition home or self-care (01) ==
LOC: HO.LAB 10:44
PROVIDERS: PCP Nurse Practitioner Primary Care; Visit Provider Nurse Practitioner Family
DX: N32.81 Overactive bladder (principal); R39.15 Urgency of urination; N39.46 Mixed incontinence
CPT/HCPCS: 81001; 87086

== ENCOUNTER 2023-12-01 09:20 | Outpatient (AMB) | payer MEDICARE, MEDICAID, SELFPAY ==
--- NOTE | 2023-12-01 09:33 | A.OFFVIS_ITS ---
Intake Visit Reasons: 6m/PVR Intake Note: Patient presents today for follow up on: OAB, Incontinence, uti symptoms Urology Medications: myrbetriq Blood Thinner: apixaban PVR: 57ml's Pantry Chef Required: Yes Pantry Chef Name: JOCELYNE CASILLASINEZ Accompanied by: Self / Same As Patient Allergies cyclobenzaprine Allergy (Intermediate, Verified 12/01/23 21:11) Rash fluticasone [From Advair Diskus] Allergy (Intermediate, Verified 12/01/23 21:11) Swelling ibuprofen [From Motrin] Allergy (Intermediate, Verified 12/01/23 21:11) RASH salmeterol [From Advair Diskus] Allergy (Intermediate, Verified 12/01/23 21:11) Swelling lisinopril [LISINOPRIL] Adverse Reaction (Mild, Verified 12/01/23 21:11) Cough Medication List - Last Reconciled 12/01/23 by ANGELIQUE Kaplan-MARISABEL acetaminophen 500 mg PO Q8H PRN albuterol sulfate 90 mcg/actuation 2 puffs PO Q4-6H PRN amlodipine 5 mg PO DAILY apixaban (Eliquis) 2.5 mg PO BID atorvastatin 20 mg PO DAILY bupropion HCl SR 150 mg PO BID carvedilol 6.25 mg PO BID cetirizine 10 mg PO DAILY PRN 30 days cholecalciferol (vitamin D3) (Vitamin D3) 50 mcg PO DAILY clonazepam 0.5 mg PO DAILY docusate sodium 100 mg PO DAILY dolutegravir (Tivicay) 1 tab PO DAILY emtricitabine-tenofovir alafen 200-25 mg (Descovy) 1 tab PO DAILY fenofibrate micronized 67 mg PO DAILY Flovent HFA 44 mcg/actuation (fluticasone propionate) 2 puffs PO BID NS fluticasone furoate 100 mcg/actuation (Arnuity Ellipta) 1 inh inhalation DAILY hydrochlorothiazide 50 mg PO QAM ketotifen fumarate 0.025%(0.035%) 1 drp ophthalmic (eye) BID losartan 100 mg PO DAILY mirabegron ER (Myrbetriq) 50 mg PO DAILY 90 days ggehjyxesawd-jcuj-udryu acid 18-400 mg-mcg 1 tab PO DAILY omeprazole 20 mg PO BID pregabalin (Lyrica) 200 mg PO BID simethicone 80 mg PO BID PRN HPI Comments Details: Alison is a 68 year-old Greenlandic-speaking female who is a patient of Dr. Almaraz. She has a past medical history of mixed urinary incontinence, overactive bladder, asthma, pulmonary embolism on anticoagulation, arthritis, glaucoma, GERD, myalgia, hypercholesteremia, anxiety, fibromyalgia, hypertension, hypercalcemia, vitamin-D deficiency, myostitis, and HIV. She presents to the office today for follow-up of her ongoing lower urinary tract symptoms. In discussion with the patient today she reports having called the office late last week as she had been experiencing UTI like symptoms at which time a urine culture was ordered and obtained. These results were reviewed with the patient today. No growth noted on urine culture. In office urinalysis today with 1+ leukocytes negative nitrates. She does report noting somewhat improvement in her lower urinary tract symptoms on Myrbetriq however feels these symptoms she has been experiencing differ from her overactive bladder symptoms. She reports noting over the last 3 months intermittent episodes of bladder pressure/pain and dysuria. She otherwise denies foul smelling urine, changes to urinary stream, flank pain, fever, and or chills. PVR 57 mL. [facility] Medical History Encounter for medication monitoring Left foot pain Mixed incontinence urge and stress Overactive bladder Asthma COVID-19 vaccine series completed Pulmonary embolism Arthritis Glaucoma GERD (gastroesophageal reflux disease) Hyperglycemia Myalgia Myositis Hypercholesterolemia Anxiety H/O esophageal reflux Overweight Primary osteoarthritis of both knees Fibromyalgia Appendicitis with abscess Urgency incontinence Colon cancer screening Uterine fibroid Pelvic pain Rectal pain HTN (hypertension) Hypercalcemia Vitamin D deficiency Multinodular thyroid COVID-19 HIV (human immunodeficiency virus infection) Surgical History H/O colonoscopy Hx of appendectomy Hx of hysterectomy Hx of tubal ligation Family History Father Thyroid cancer Mother Cirrhosis Hypertension Daughter Thyroid cancer Social History Household Members: None Housing: Apartment Are you a primary pediatric acute care unit nurse to a significant other at home: No Do you presently have visiting nurse or other home services: 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) Alcohol intake: current Alcohol intake frequency: holidays/special occasions only Patient Tobacco Use Status: Former Tobacco user Tobacco use type: Cigarette Years Smoked: 23 yrs Advance Directives Date on File: 08/05/21 service: No Current occupational status: retired Review of Systems Const Reports as per HPI Eyes Reports as per HPI ENT Reports no additional complaints Card Reports as per HPI Resp Reports as per HPI GI Reports as per HPI Reports as per HPI Musc Reports no additional complaints Neuro Reports as per HPI Psych Reports as per HPI Endo Reports as per HPI Physical Exam Const General: cooperative, comfortable, no acute distress, well developed, alert and awake Orientation/consciousness: patient oriented x3 HEENT Head: Yes normal to inspection, Yes normocephalic and Yes atraumatic Ears: hearing grossly normal bilaterally Eyes General: appearance normal, both eyes and all related structures Neck Neck: Yes normal visual inspection and Yes trachea midline Chest Chest palpation & inspection: normal inspection of the chest Resp Effort & Inspection: normal respiratory effort and able to speak in complete sentences Cardio Rate: regular rate GI Inspection: Yes normal to inspection General: Yes no CVA tenderness Back/Spine/Pelvis Back: no CVA tenderness Skin General skin exam: no rashes or lesions noted Neuro General: patient oriented x3 Extrem General: Yes normal to inspection Psych Appearance: grossly normal and well kempt Mental Status: mental status grossly normal Speech and movement: Normal speech and movement present and Clear speech present Affect: normal affect Attitude: cooperative Thought process: Normal thought process present Thought content: Normal thought content present Insight: Fair insight present (Psych) Judgement: Fair judgement present (Psych) Office Procedures Post Void Residual Post Residual Void Post Void Residual (PVR): 57 [id number] Void Residual by ultrasound Results AMB Urinalysis, Automated UA Leukoctes 15 Beverly/uL Last Edit by Referrizer Tk on 12/01/23 09:45 UA Nitrite Negative Last Edit by Referrizer [employer] [employer] on 12/01/23 09:45 UA Urobilinogen 0.2 mg/dL Last Edit by [employer] on 12/01/23 09:45 UA Protein 0 mg/dL Last Edit by Referrizer Tk on 12/01/23 09:45 UA pH 7.0 Last Edit by Referrizer Tk on 12/01/23 09:45 UA Blood 0 Mejia/uL Last Edit by Rahat Clarkhector on 12/01/23 09:45 UA Specific Thoreau 1.010 Last Edit by Jamshidboogiebennie Clarkhector on 12/01/23 09:45 UA Ketone Negative Last Edit by Jamshidboogiebennie Clarkhector on 12/01/23 09:45 UA Bilirubin 0 mg/dL Last Edit by Jamshidboogiebennie Clarkhector on 12/01/23 09:45 UA Glucose 0 mg/dL Last Edit by Jamshidmio Amberhector on 12/01/23 09:45 Results Reviewed Results Reviewed: Laboratory Last Values Urine pH (Auto) 7.0 12/01/23 09:37 Specific Thoreau (Auto) 1.010 12/01/23 09:37 Urine Protein (Auto) 0 mg/dL 12/01/23 09:37 Glucose (UA)(Auto) 0 mg/dL 12/01/23 09:37 Urine Ketones (Auto) Negative 12/01/23 09:37 Urine Blood (Auto) 0 Mejia/uL 12/01/23 09:37 Urine Nitrite (Auto) Negative 12/01/23 09:37 Urine Bilirubin (Auto) 0 mg/dL 12/01/23 09:37 Urine Urobilinogen (Auto) 0.2 mg/dL 12/01/23 09:37 Leukocyte Esterase (Auto) 15 Beverly/uL 12/01/23 09:37 Assessment & Plan Assessment & Plan (1) Lower urinary tract symptoms: Code(s): R39.9 - Unspecified symptoms and signs involving the genitourinary system Category: Medical (2) Sensation of pressure in bladder area: Code(s): R39.89 - Other symptoms and signs involving the genitourinary system Category: Medical (3) Dysuria: Code(s): R30.0 - Dysuria Category: Medical (4) Overactive bladder: Code(s): N32.81 - Overactive bladder Category: Medical Plan In office urinalysis results reviewed with the patient today; will send for microgen testing for further assessment evaluation; will await results for potential treatment. Discussed at length potential causes for lower urinary tract symptoms patient is experiencing. Discussed bladder triggers/irritants. Will obtain retroperitoneal ultrasound for further assessment evaluation. Discussed, educated, and stressed the importance of adequate hydration. Discussed potential for near future in office cystoscopy if symptoms continue and or worsen. Continue Myrbetriq 50 mg daily as discussed and prescribed. Follow-up in 1-3 months with imaging to be completed prior; or sooner with any issues, concerns, and or questions. Orders: Orders AMB Urinalysis Automated Today Z13.9 - Encounter for screening, unspecified AMB Post Void Residual by ultrasound Today N39.46 - Mixed incontinence US retroperitoneal comp Today R39.9 - Unspecified symptoms and signs involving the genitourinary system Patient Instructions: The patient had an opportunity to ask questions regarding the treatment plan. All questions were answered. Physical exam, labs, and imaging were discussed and reviewed in detail. As well as risks, benefits, and discussion of treatment choices. No major barriers to understanding were identified. The patient expressed understanding and agreement with the above treatment plan. The patient was made aware they should contact our office by phone for worsening of their current condition, the appearance of new symptoms, or with any questions or concerns. Compliance is encouraged with any medications and follow up testing that is ordered. It is a privilege to be allowed the opportunity to participate in? your urological care.? Again, if you have any questions or concerns If you have any questions or concerns please do not hesitate to contact me. The office is [phone]. This note is constructed using voice recognition software. While every effort has been made to ensure accuracy amphibian crewmember errors may have been included. Yours sincerely, HOWARD Kaplan Coding Level of Care Code Est Pt Level 3 (36051) Diagnoses Lower urinary tract symptoms R39.9 Sensation of pressure in bladder area R39.89 Dysuria R30.0 Overactive bladder N32.81 CPT Codes Post Residual Void - PVR CPT Code: 40736-Ukyr Void Residual by ultrasound ([id number])
== END 2023-12-01 10:04 | disposition home or self-care (01) ==
PROVIDERS: PCP Nurse Practitioner Primary Care; Visit Provider Nurse Practitioner Family
DX: R39.9 Unspecified symptoms and signs involving the genitourinary system (principal); R39.89 Other symptoms and signs involving the genitourinary system; R30.0 Dysuria; N32.81 Overactive bladder; Z13.9 Encounter for screening, unspecified
CPT/HCPCS: 99213

== ENCOUNTER → 2023-12-01 09:20 | Outpatient (BNVA) | payer MEDICARE, MEDICAID, SELFPAY | PROVIDERS: PCP Nurse Practitioner Primary Care; Visit Provider Nurse Practitioner Family | DX: N32.81 Overactive bladder (principal); N39.46 Mixed incontinence; R30.0 Dysuria; R39.89 Other symptoms and signs involving the genitourinary system; R39.9 Unspecified symptoms and signs involving the genitourinary system; Z79.899 Other long term (current) drug therapy | CPT/HCPCS: 51798; 81003; 99212 ==

== ENCOUNTER 2024-02-04 09:14 | Outpatient (REF) | payer MEDICARE, MEDICAID, SELFPAY ==
--- NOTE | ~2024-02-04 | US_ITS ---
EXAMINATION: US RETROPERITONEAL COMPLETE (RENAL) CLINICAL INFORMATION: Unspecified symptoms and signs involving the genitourinary system. COMPARISON: CT abdomen and pelvis 01/27/2020. TECHNIQUE: Real-time imaging of the kidneys and bladder. FINDINGS: RIGHT KIDNEY: 11.8 x 5.3 x 6.1 cm (SAG x AP x TRV). The kidney is normal in size, contour, and echogenicity. Renal cortical thickness is normal. No definite calculi or focal parenchymal lesions. No hydronephrosis. There are nonshadowing punctate calcifications which may relate related to atherosclerotic calcifications. LEFT KIDNEY: 11.4 x 5.8 x 4.9 cm (SAG x AP x TRV). The kidney is normal in size, contour, and echogenicity. Renal cortical thickness is normal. No calculi or focal parenchymal lesions. There is chronic mild lower pole caliectasis, consistent with prior CT findings (01/27/2020; 5:89). There is no jolie hydronephrosis. BLADDER: Well distended and normal. Bilateral ureteral jets are demonstrated. Prevoid bladder volume is 291 mL. Postvoid bladder volume is 27 mL. US/US retroperitoneal comp IMPRESSION: There is mild chronic left renal lower pole caliectasis. No jolie hydronephrosis is seen bilaterally. No renal mass or calculus is noted. Electronically signed by: Patrick Morton MD 03/04/2024 05:38 PM EDT
== END 2024-02-04 09:15 | disposition home or self-care (01) ==
LOC: HO.US 09:14
PROVIDERS: PCP Nurse Practitioner Primary Care; Visit Provider Nurse Practitioner Family
DX: R39.9 Unspecified symptoms and signs involving the genitourinary system (principal)
CPT/HCPCS: 76770

== ENCOUNTER 2024-02-16 14:52 | Outpatient (AMB) | payer MEDICARE, MEDICAID, SELFPAY ==
[2024-02-16 14:58] VITALS: BP 130/70; PULSE 66; O2SAT 95; BMI 29.9
--- NOTE | 2024-02-16 14:58 | MHC.OFFVIS ---
Vital Signs 02/16/24 14:58 Height 5 ft Weight 153 lb 3.54 oz BMI 29.9 BP 130/70 Blood Pressure Location Rt brachial Position Sitting Pulse 66 Pulse Source Doppler Pulse Oximetry (%) 95 Oxygen Delivery Method Room Air Intake Visit Reasons: dyspnea Health Services Coordinator Required: No Allergies cyclobenzaprine Allergy (Intermediate, Verified 02/16/24 15:04) Rash fluticasone [From Advair Diskus] Allergy (Intermediate, Verified 02/16/24 15:04) Swelling ibuprofen [From Motrin] Allergy (Intermediate, Verified 02/16/24 15:04) RASH salmeterol [From Advair Diskus] Allergy (Intermediate, Verified 02/16/24 15:04) Swelling lisinopril [LISINOPRIL] Adverse Reaction (Mild, Verified 02/16/24 15:04) Cough HPI HPI dyspnea: Details: 68-year-old lady, with underlying history of HIV?on HAART, former 25+ pack-year smoker, quit 2007, followed for mild persistent asthma and allergies. Her symptoms are well controlled on Arnuity and albuterol MDI. She denies any recent exacerbations. She continues to use Zyrtec daily for allergic component. [facility] Medical History Encounter for medication monitoring Left foot pain Mixed incontinence urge and stress Overactive bladder Asthma COVID-19 vaccine series completed Pulmonary embolism Arthritis Glaucoma GERD (gastroesophageal reflux disease) Hyperglycemia Myalgia Myositis Hypercholesterolemia Anxiety H/O esophageal reflux Overweight Primary osteoarthritis of both knees Fibromyalgia Appendicitis with abscess Urgency incontinence Colon cancer screening Uterine fibroid Pelvic pain Rectal pain HTN (hypertension) Hypercalcemia Vitamin D deficiency Multinodular thyroid COVID-19 HIV (human immunodeficiency virus infection) Surgical History H/O colonoscopy Hx of appendectomy Hx of hysterectomy Hx of tubal ligation Family History Father Thyroid cancer Mother Cirrhosis Hypertension Daughter Thyroid cancer Social History Household Members: None Housing: Apartment Are you a primary animal caretaker to a significant other at home: No Do you presently have visiting nurse or 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) Alcohol intake: current Alcohol intake frequency: holidays/special occasions only Patient Tobacco Use Status: Former Tobacco user Tobacco use type: Cigarette Years Smoked: 23 yrs Advance Directives Date on File: 08/05/21 service: No Current occupational status: retired Review of Systems Const Denies daytime sleepiness, Denies excessive sweating, Denies fatigue, Denies fever(s), Denies lethargy, Denies malaise, Denies night sweats, Denies snoring and Denies weight loss Eyes Denies blurry vision and Denies itchy eyes ENT Denies nasal congestion, Denies post nasal drip, Denies sinus pain, Denies sinus pressure and Denies other ( Thrush) Card Denies chest pain, Denies pedal edema, Denies dyspnea, Denies orthopnea and Denies paroxysmal nocturnal dyspnea Resp Denies cough, Denies hemoptysis, Denies excessive phlegm production, Denies dyspnea, Denies snoring and Denies wheezing GI Denies abdominal pain and Denies heartburn Musc Denies myalgias, Denies arthralgias and Denies joint swelling Skin/Breast Denies rash Neuro Denies memory loss and Denies seizure-like activity Psych Denies abnormal sleep pattern, Denies anxiety and Denies memory loss Endo Denies excessive sweating, Denies fatigue and Denies heat intolerance Lino/Lymph Denies easy bruising Aller/Immun Denies itchy eyes, Denies seasonal rhinorrhea and Denies wheezing Physical Exam Vital Signs: Last Vital Signs Pulse 66 02/16/24 14:58 BP 130/70 02/16/24 14:58 Pulse Ox 95 02/16/24 14:58 Oxygen Delivery Method Room Air 02/16/24 14:58 BMI result Body Mass Index 29.9 Const General: no acute distress and alert Nutritional Appearance: not obese Orientation/consciousness: Other orientation findings ( oriented) HEENT Head: Yes atraumatic Eyes General: appearance normal, both eyes and all related structures Sclerae: sclerae normal EOM: EOMs intact bilaterally Neck Neck: Yes supple Lymphatic: no lymphadenopathy noted Resp Effort & Inspection: normal respiratory effort and no use of accessory muscles Auscultation: clear to auscultation bilaterally Cardio Rate: regular rate Rhythm: regular rhythm Heart sounds: no gallops, no murmurs and no rubs Skin General skin exam: other ( warm) Extrem General: No clubbing, No cyanosis and No edema Assessment & Plan Assessment & Plan (1) Asthma: Code(s): J45.909 - Unspecified asthma, uncomplicated Category: Medical Plan: Well controlled on Arnuity and albuterol MDI. Continue current regimen. (2) Environmental allergies: Code(s): Z91.09 - Other allergy status, other than to drugs and biological substances Category: Medical Plan: Well controlled on Zyrtec. Continue current regimen. Coding Level of Care Code Est Pt Level 4 (15970) Diagnoses Asthma J45.909 Environmental allergies Z91.09
== END 2024-02-16 15:18 | disposition home or self-care (01) ==
PROVIDERS: PCP Nurse Practitioner Primary Care; Visit Provider Internal Medicine Pulmonary Disease
DX: J45.909 Unspecified asthma, uncomplicated (principal); Z91.09 Other allergy status, other than to drugs and biological substances
CPT/HCPCS: 99214

== ENCOUNTER → 2024-02-16 14:52 | Outpatient (BNVA) | payer MEDICARE, MEDICAID, SELFPAY | PROVIDERS: PCP Nurse Practitioner Primary Care; Visit Provider Internal Medicine Pulmonary Disease | DX: J45.909 Unspecified asthma, uncomplicated (principal); Z91.09 Other allergy status, other than to drugs and biological substances | CPT/HCPCS: 99212 ==

== ENCOUNTER 2024-03-01 09:17 | Outpatient (AMB) | payer MEDICARE, MEDICAID, SELFPAY ==
--- NOTE | 2024-03-01 09:32 | A.OFFVIS_ITS ---
Intake Visit Reasons: 3M/US(set) Intake Note: Patient presents today for follow up on: OAB, Incontinence, uti symptoms, ultrasound results Imaging Completed: 02/04/24 Urology Medications: myrbetriq Blood Thinner: apixaban PVR: 0ml Composing Machine Operator Required: No Accompanied by: Self / Same As Patient Allergies cyclobenzaprine Allergy (Intermediate, Verified 03/02/24 08:41) Rash fluticasone [From Advair Diskus] Allergy (Intermediate, Verified 03/02/24 08:41) Swelling ibuprofen [From Motrin] Allergy (Intermediate, Verified 03/02/24 08:41) RASH salmeterol [From Advair Diskus] Allergy (Intermediate, Verified 03/02/24 08:41) Swelling lisinopril [LISINOPRIL] Adverse Reaction (Mild, Verified 03/02/24 08:41) Cough Medication List - Last Reconciled 03/01/24 by ANGELIQUE Kaplan-MARISABEL acetaminophen 500 mg PO Q8H PRN albuterol sulfate 90 mcg/actuation 2 puffs PO Q4-6H PRN amlodipine 5 mg PO DAILY apixaban (Eliquis) 2.5 mg PO BID atorvastatin 20 mg PO DAILY bupropion HCl SR 150 mg PO BID carvedilol 6.25 mg PO BID cetirizine 10 mg PO DAILY PRN 30 days cholecalciferol (vitamin D3) (Vitamin D3) 50 mcg PO DAILY clonazepam 0.5 mg PO DAILY docusate sodium 100 mg PO DAILY dolutegravir (Tivicay) 1 tab PO DAILY emtricitabine-tenofovir alafen 200-25 mg (Descovy) 1 tab PO DAILY fenofibrate micronized 67 mg PO DAILY Flovent HFA 44 mcg/actuation (fluticasone propionate) 2 puffs PO BID NS fluticasone furoate 100 mcg/actuation (Arnuity Ellipta) 1 inh inhalation DAILY hydrochlorothiazide 50 mg PO QAM ketotifen fumarate 0.025%(0.035%) 1 drp ophthalmic (eye) BID losartan 100 mg PO DAILY mirabegron ER (Myrbetriq) 50 mg PO DAILY 90 days fzivvfyaqdwm-gaqh-uafjg acid 18-400 mg-mcg 1 tab PO DAILY omeprazole 20 mg PO BID pregabalin (Lyrica) 200 mg PO BID simethicone 80 mg PO BID PRN HPI Comments Details: Alison is a very pleasant 68 year-old [place]ese-speaking female who is a patient of Dr. Almaraz. She has a past medical history of mixed urinary incontinence, overactive bladder, asthma, pulmonary embolism on anticoagulation, arthritis, glaucoma, GERD, myalgia, hypercholesteremia, anxiety, fibromyalgia, hypertension, hypercalcemia, vitamin-D deficiency, myostitis, and HIV. She presents to the office today for follow-up of her ongoing lower urinary tract symptoms. In discussion with the patient today she reports since her last office visit here a proximally 3 months ago she has since completed antibiotic therapy as prescribed and feels lower urinary tract symptoms have significantly improved. In review of patient's chart it appears urine culture 12/13 noted no growth. Recent retroperitoneal ultrasound results reviewed with the patient today. There is mild chronic left renal lower pole caliectasis. No jolie hydronephrosis is seen bilaterally. No renal mass or calculus is noted. The bladder is well distended and normal. Bilateral ureteral jets are demonstrated. Prevoid bladder volume is 291 mL. Postvoid bladder volume is 27 mL. She reports noting to be happy with her current voiding parameters on 25 mg of Myrbetriq. She does continue wearing 1 peripad per day for safe measures when out and about however at times does not have any incontinent episodes. She otherwise offers no other issues or concerns at this time. In office urinalysis results reviewed with the patient today. She denies urinary urgency, urinary frequency, nocturia, hematuria, dysuria, foul smelling urine, changes to urinary stream, flank pain, fever, and or chills. PVR 0 mL. She otherwise offers no other issues or concerns at this time. [facility] Medical History Encounter for medication monitoring Left foot pain Mixed incontinence urge and stress Overactive bladder Asthma COVID-19 vaccine series completed Pulmonary embolism Arthritis Glaucoma GERD (gastroesophageal reflux disease) Hyperglycemia Myalgia Myositis Hypercholesterolemia Anxiety H/O esophageal reflux Overweight Primary osteoarthritis of both knees Fibromyalgia Appendicitis with abscess Urgency incontinence Colon cancer screening Uterine fibroid Pelvic pain Rectal pain HTN (hypertension) Hypercalcemia Vitamin D deficiency Multinodular thyroid COVID-19 HIV (human immunodeficiency virus infection) Surgical History H/O colonoscopy Hx of appendectomy Hx of hysterectomy Hx of tubal ligation Family History Father Thyroid cancer Mother Cirrhosis Hypertension Daughter Thyroid cancer Social History Household Members: None Housing: Apartment Are you a primary childcare center director to a significant other at home: No Do you presently have visiting nurse or 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 If so, by whom?: No Do you feel safe in your current relationship?: No Current Relationship Advance Directives Date on File: 08/05/21 Do you have thoughts of harming others: None Do you have a plan to hurt others: No Plan Do you have the means to hurt others: No Recently lost weight without trying: No service: No Current occupational status: retired Review of Systems Const Reports as per HPI Eyes Reports as per HPI ENT Reports no additional complaints Card Reports as per HPI Resp Reports as per HPI GI Reports as per HPI Reports as per HPI Musc Reports no additional complaints Neuro Reports as per HPI Psych Reports as per HPI Endo Reports as per HPI Physical Exam Const General: cooperative, healthy appearing, comfortable, no acute distress, well developed, alert and awake Orientation/consciousness: patient oriented x3 Limitations: no limitations HEENT Head: Yes normal to inspection, Yes normocephalic and Yes atraumatic Ears: hearing grossly normal bilaterally Eyes General: appearance normal, both eyes and all related structures Neck Neck: Yes normal visual inspection and Yes trachea midline Chest Chest palpation & inspection: normal inspection of the chest Resp Effort & Inspection: normal respiratory effort and able to speak in complete sentences Cardio Rate: regular rate GI Inspection: Yes normal to inspection General: Yes no CVA tenderness Back/Spine/Pelvis Back: no CVA tenderness Skin General skin exam: no rashes or lesions noted Neuro General: patient oriented x3 Extrem General: Yes normal to inspection Psych Appearance: grossly normal and well kempt Mental Status: mental status grossly normal Speech and movement: Normal speech and movement present and Clear speech present Affect: normal affect Attitude: cooperative Thought process: Normal thought process present Thought content: Normal thought content present Insight: Fair insight present (Psych) Judgement: Fair judgement present (Psych) Office Procedures Post Void Residual Post Residual Void Post Void Residual (PVR): 0 [id number] Void Residual by ultrasound Results AMB Urinalysis, Automated UA Leukoctes 0 Beverly/uL Last Edit by Data Symmetrybennie Frey on 03/01/24 09:45 UA Nitrite Last Edit by Data Symmetrybennie [employer] Rep[employer] Networkhector on 03/01/24 09:45 UA Urobilinogen 0.2 mg/dL Last Edit by Sonianhector on 03/01/24 09:45 UA Protein 0 mg/dL Last Edit by Sonianhector on 03/01/24 09:45 UA pH 7.0 Last Edit by Sonianhector on 03/01/24 09:45 UA Blood 0 Mejia/uL Last Edit by Sonianhector on 03/01/24 09:45 UA Specific [place] 1.005 Last Edit by Sonianhector on 03/01/24 09:45 UA Ketone Last Edit by Sonianhector on 03/01/24 09:45 UA Bilirubin 0 mg/dL Last Edit by Sonianhector on 03/01/24 09:45 UA Glucose 0 mg/dL Last Edit by Sonianhector on 03/01/24 09:45 Results Reviewed Results Reviewed: Laboratory Last Values Urine pH (Auto) 7.0 03/01/24 09:37 Specific [place] (Auto) 1.005 03/01/24 09:37 Urine Protein (Auto) 0 mg/dL 03/01/24 09:37 Glucose (UA)(Auto) 0 mg/dL 03/01/24 09:37 Urine Blood (Auto) 0 Mejia/uL 03/01/24 09:37 Urine Bilirubin (Auto) 0 mg/dL 03/01/24 09:37 Urine Urobilinogen (Auto) 0.2 mg/dL 03/01/24 09:37 Leukocyte Esterase (Auto) 0 Beverly/uL 03/01/24 09:37 Date of Service: 02/04/24 FINDINGS: RIGHT KIDNEY: 11.8 x 5.3 x 6.1 cm (SAG x AP x TRV). The kidney is normal in size, contour, and echogenicity. Renal cortical thickness is normal. No definite calculi or focal parenchymal lesions. No hydronephrosis. There are nonshadowing punctate calcifications which may relate related to atherosclerotic calcifications. LEFT KIDNEY: 11.4 x 5.8 x 4.9 cm (SAG x AP x TRV). The kidney is normal in size, contour, and echogenicity. Renal cortical thickness is normal. No calculi or focal parenchymal lesions. There is chronic mild lower pole caliectasis, consistent with prior CT findings (01/27/2020; 5:89). There is no jolie hydronephrosis. BLADDER: Well distended and normal. Bilateral ureteral jets are demonstrated. Prevoid bladder volume is 291 mL. Postvoid bladder volume is 27 mL. IMPRESSION: There is mild chronic left renal lower pole caliectasis. No jolie hydronephrosis is seen bilaterally. No renal mass or calculus is noted. Assessment & Plan Assessment & Plan (1) Mixed incontinence urge and stress: Code(s): N39.46 - Mixed incontinence Category: Medical Plan In office urinalysis results reviewed with the patient today; as noted above. PVR 0 mL. Recent retroperitoneal ultrasound results reviewed with the patient today; as noted above. Discussed at length potential causes of lower urinary tract symptoms patient was experiencing. Continue Myrbetriq Discussed, educated, and stressed the importance of adequate hydration relation to nephrolithiasis as well as overall health and well-being. Patient currently denies any bothersome urinary issues or concerns. She reports be happy with current voiding parameters on Myrbetriq; refill provided. Will obtain renal ultrasound in 6 months. Follow-up in 6 months with imaging and PVR; or sooner with any issues, concerns, and or questions. Orders: Orders AMB Urinalysis Automated 03/01/24 Z13.9 - Encounter for screening, unspecified US renal BI 6 Months N20.0 - Calculus of kidney AMB Post Void Residual by ultrasound 03/01/24 N39.46 - Mixed incontinence Medications: Refilled mirabegron ER (Myrbetriq) 50 mg PO DAILY 90 tabs 3RF 90 days N32.81 - Overactive bladder, N39.46 - Mixed incontinence Patient Instructions: The patient had an opportunity to ask questions regarding the treatment plan. All questions were answered. Physical exam, labs, and imaging were discussed and reviewed in detail. As well as risks, benefits, and discussion of treatment ch oices. No major barriers to understanding were identified. The patient expressed understanding and agreement with the above treatment plan. The patient was made aware they should contact our office by phone for worsening of their current condition, the appearance of new symptoms, or with any questions or concerns. Compliance is encouraged with any medications and follow up testing that is ordered. It is a privilege to be allowed the opportunity to participate in? your urological care.? Again, if you have any questions or concerns If you have any questions or concerns please do not hesitate to contact me. The office is [phone]. This note is constructed using voice recognition software. While every effort has been made to ensure accuracy electric container tester errors may have been included. Yours sincerely, HOWARD Kaplan Coding Level of Care Code Est Pt Level 3 (73536) Diagnoses Mixed incontinence urge and stress N39.46 CPT Codes Post Residual Void - PVR CPT Code: 74960-Foun Void Residual by ultrasound ([id number])
== END 2024-03-01 10:29 | disposition home or self-care (01) ==
PROVIDERS: PCP Nurse Practitioner Primary Care; Visit Provider Nurse Practitioner Family
DX: N39.46 Mixed incontinence (principal)
CPT/HCPCS: 99213

== ENCOUNTER → 2024-03-01 09:17 | Outpatient (BNVA) | payer MEDICARE, MEDICAID, SELFPAY | PROVIDERS: PCP Nurse Practitioner Primary Care; Visit Provider Nurse Practitioner Family | DX: N39.46 Mixed incontinence (principal) | CPT/HCPCS: 51798; 81003; 99212 ==

== ENCOUNTER 2024-04-06 07:02 | Outpatient (REF) | payer MEDICARE, MEDICAID, SELFPAY ==
[2024-04-06 07:40] LABS: MANUAL DIFF FLAG NO
[2024-04-06 08:07] LABS: Basophils Percent Auto 0.8 % (0-2); Eosinophils Absolute Auto 0.1 X10*3/uL (0.0-0.4); Eosinophils Percent Auto 1.1 % (0-4); Hematocrit 39.6 % (37.0-47.0); Hemoglobin 13.5 g/dl (12.0-16.0); Imm Gran Abs Auto 0.02 X10*3/uL (0.00-0.03); Imm Gran Pct Auto 0.4 % (0.0-0.4); Lymphocytes Absolute Auto 1.7 X10*3/uL (1.2-4.9); Mean Corpuscular HGB Conc 34.1 g/dl (31.0-35.0); Mean Corpuscular Hemoglobin 31.1 pg (27.0-33.0); Mean Corpuscular Volume 91.2 fL (80.0-98.0); Mean Platelet Volume 11.8 fL (9.4-12.3); Monocytes Absolute Auto 0.4 X10*3/uL (0.1-1.2); Monocytes Percent Auto 6.8 % (2-11); Neutrophils Absolute Auto 3.2 x10*3/uL (2.0-8.3); Neutrophils Percent Auto 59.9 % (45-73); Platelet Count 240 X10*3/uL (160-400); Red Blood Count 4.34 X10*6/uL (4.20-5.50); White Blood Count 5.3 X10*3/uL (4.8-10.8)
[2024-04-06 08:31] LABS: Alanine Aminotransferase 16 U/L (0-31); Albumin Level 4.3 g/dL (3.5-5.0); Alkaline Phosphatase 46 U/L (39-117); Anion Gap 12 (12-20); Aspartate Amino Transferase 20 U/L (5-31); Bilirubin Total 0.3 mg/dL (0.0-1.0); Blood Urea Nitrogen 13 mg/dL (9-16); Calcium 9.5 mg/dL (8.4-10.2); Carbon Dioxide 27 mmol/L (22-29); Chloride 107 mmol/L (96-108); Cholesterol 134 mg/dL (<200); Estimated Glomerular Filt Rate > 60; Glucose Random 134 mg/dL (60-115); HDL Cholesterol 43 mg/dL (>40); LDL Cholesterol Calculated 70 mg/dL (<100); Potassium 3.3 mmol/L (3.3-5.1); Sodium 143 mmol/L (135-145); Total Protein 7.1 g/dL (6.5-8.0); Triglycerides 105 mg/dL (<150)
[2024-04-06 08:49] LABS: HBS Num1 1.78 mIU/mL (0-7.99); HBc Num1 4.09 S/CO (0.00-0.79); HBsAGNum1 0.52 S/CO (0.00-0.99); Hepatitis B Surface Antigen Negative (Negative); ~HepC Num1 0.09 S/CO (0.00-0.79); ~Hepatitis B Surface Antibody NONREACTIVE (Nonreactive); ~Hepatitis C Antibody Nonreactive (Nonreactive)
[2024-04-06 08:56] LABS: Hepatitis A Antibody IgG REACTIVE (Nonreactive)
[2024-04-06 09:29] LABS: Reflex LDLD? No
[2024-04-06 11:56] LABS: HBc Num2 3.87 S/CO; HBc Num3 4.06 S/CO; Hepatitis B Core Antibody Reactive (Nonreactive)
[2024-04-07 22:28] LABS: Rubeola IgG (Measles) >300.00 AU/mL; Toxoplasma IgM Antibody <8.00 AU/mL
[2024-04-08 11:38] LABS: Hepatitis B Core Antibody IgM NON-REACTIVE (NON-REACTIVE)
[2024-04-08 12:53] LABS: HIV RNA PCR Qn Copies <20 DETECTED copies/mL (NOT DETECTED); HIV RNA PCR Qn Log Copies <1.30 DETECTED (NOT DETECTED)
[2024-04-08 15:24] LABS: RPR Rapid Plasma Reagin NON-REACTIVE (NON-REACTIVE)
[2024-04-08 22:43] LABS: TS Negative Control Passed; TS Panel A 2; TS Panel B 0; TS Positive Control Passed; TSpotTB Negative (Negative)
== END 2024-04-06 07:03 | disposition home or self-care (01) ==
LOC: HO.LAB 07:02
PROVIDERS: PCP Nurse Practitioner Primary Care; Visit Provider Internal Medicine
DX: Z21 Asymptomatic human immunodeficiency virus [HIV] infection status (principal); Z11.59 Encounter for screening for other viral diseases; E08.69 Diabetes mellitus due to underlying condition with other specified complication; Z79.4 Long term (current) use of insulin; Z11.3 Encounter for screening for infections with a predominantly sexual mode of transmission; Z72.89 Other problems related to lifestyle
CPT/HCPCS: 36415; 80053; 80061; 85025; 86481; 86592; 86704; 86705; 86706; 86708; 86735; 86762; 86765; 86777; 86778; 86787; 86803; 87340; 87536

== ENCOUNTER 2024-05-30 09:37 | Outpatient (REF) | payer MEDICARE, MEDICAID, SELFPAY ==
--- NOTE | ~2024-05-30 | MM_ITS ---
EXAMINATION: MM SCREENING DIGITAL BREAST TOMOSYNTHESIS, BILATERAL CLINICAL INFORMATION: Screening. Asymptomatic. COMPARISON: Mammography: Comparison is made with available priors TECHNIQUE: Digital breast mammography with tomosynthesis is performed in both the craniocaudal and mediolateral oblique views along with computer-aided detection (CAD). FINDINGS: There are scattered areas of fibroglandular density (ACR BI-RADS breast composition Category b). There are no significant masses, abnormal calcifications, or other abnormalities. MM/MM tomosynthesis screening BI IMPRESSION: No mammographic evidence of malignancy. ASSESSMENT: BI-RADS BI-RADS 1 - Negative RECOMMENDATION: Routine annual mammography screening. 1 year F/U This examination should not preclude the clinical evaluation of a suspicious palpable abnormality. This patient's information was entered into a reminder system with a target due date for their next mammogram. Electronically signed by: Meghan Wiley DO 06/03/2024 04:50 PM KEYONNA
== END 2024-05-30 09:38 | disposition home or self-care (01) ==
LOC: HO.MAMMO 09:37
PROVIDERS: PCP Nurse Practitioner Primary Care; Visit Provider Nurse Practitioner Primary Care
DX: Z12.31 Encounter for screening mammogram for malignant neoplasm of breast (principal)
CPT/HCPCS: 77063; 77067

== ENCOUNTER → 2024-05-30 10:30 | Outpatient (BNV) | payer MEDICARE, MEDICAID, SELFPAY | PROVIDERS: PCP Nurse Practitioner Primary Care; Visit Provider Internal Medicine | DX: Z12.31 Encounter for screening mammogram for malignant neoplasm of breast (principal) | CPT/HCPCS: 77063; 77067 ==

== ENCOUNTER 2024-06-03 10:54 | Outpatient (REF) | payer MEDICARE, MEDICAID, SELFPAY ==
[2024-06-08 17:54] LABS: Absolute CD3 Count 1695 cells/uL (840-3060); Absolute CD4 Count 858 cells/uL (490-1740); Absolute CD8 Count 874 cells/uL (180-1170); Absolute Lymphocytes 1901 cells/uL (850-3900); CD4 CD8 Ratio 0.98 (0.86-5.00); Percent CD3 Cells 89 % (57-85); Percent CD4 Cells 45 % (30-61); Percent CD8 Cells 46 % (12-42)
== END 2024-06-03 10:55 | disposition home or self-care (01) ==
LOC: HO.LAB 10:54
PROVIDERS: PCP Nurse Practitioner Primary Care; Visit Provider Internal Medicine
DX: Z21 Asymptomatic human immunodeficiency virus [HIV] infection status (principal)
CPT/HCPCS: 36415; 86359; 86360

== ENCOUNTER 2024-07-21 13:16 | Outpatient (AMB) | payer MEDICARE, MEDICAID, SELFPAY ==
[2024-07-21 13:26] VITALS: BP 123/65; PULSE 62; BMI 28.7
--- NOTE | 2024-07-21 13:26 | MHC.OFFVIS ---
Vital Signs 07/21/24 13:26 Height 5 ft Weight 147 lb BMI 28.7 BP 123/65 Blood Pressure Location Lt brachial Position Sitting Pulse 62 Intake Visit Reasons: recall colonoscopy Intake Note: This patient presents for recall colonoscopy screening. Pt c/o; Hx of hemorrhoids, no rectal bleeding. Woodworking Machine Feeder Required: No Accompanied by: Self / Same As Patient Allergies cyclobenzaprine Allergy (Intermediate, Verified 07/21/24 13:35) Rash fluticasone [From Advair Diskus] Allergy (Intermediate, Verified 07/21/24 13:35) Swelling ibuprofen [From Motrin] Allergy (Intermediate, Verified 07/21/24 13:35) RASH salmeterol [From Advair Diskus] Allergy (Intermediate, Verified 07/21/24 13:35) Swelling lisinopril [LISINOPRIL] Adverse Reaction (Mild, Verified 07/21/24 13:35) Cough Medication List - Last Reconciled 07/21/24 by Miguel A Camejo MD acetaminophen 500 mg PO Q8H PRN albuterol sulfate 90 mcg/actuation 2 puffs PO Q4-6H PRN amlodipine 5 mg PO DAILY apixaban (Eliquis) 2.5 mg PO BID atorvastatin 20 mg PO DAILY bupropion HCl SR 150 mg PO BID carvedilol 6.25 mg PO BID cetirizine 10 mg PO DAILY PRN 30 days cholecalciferol (vitamin D3) (Vitamin D3) 50 mcg PO DAILY clonazepam 0.5 mg PO DAILY docusate sodium 100 mg PO DAILY dolutegravir (Tivicay) 1 tab PO DAILY emtricitabine-tenofovir alafen 200-25 mg (Descovy) 1 tab PO DAILY fenofibrate micronized 67 mg PO DAILY Flovent HFA 44 mcg/actuation (fluticasone propionate) 2 puffs PO BID NS fluticasone furoate 100 mcg/actuation (Arnuity Ellipta) 1 inh inhalation DAILY fluticasone propionate 50 mcg/actuation intranasal hydrochlorothiazide 50 mg PO QAM ketotifen fumarate 0.025%(0.035%) 1 drp ophthalmic (eye) BID loratadine 10 mg PO DAILY PRN losartan 100 mg PO DAILY mirabegron ER (Myrbetriq) 50 mg PO DAILY 90 days aqmyznotuhjv-aoqi-lcyid acid 18-400 mg-mcg 1 tab PO DAILY omeprazole 20 mg PO BID pregabalin (Lyrica) 200 mg PO BID simethicone 80 mg PO BID PRN HPI HPI recall colonoscopy: Details: [age] year old female here to schedule for her screening colonoscopy. Her last colonoscopy was in 2014 and this was unremarkable. She denies GI complaints. She denies any family history of colon cancer. She had a PE in 2019 and had been on Eliquis since that time. She says she is feeling well overall. [facility] Medical History (Updated 07/21/24 @ 13:48 by Miguel A Caemjo MD) Encounter for medication monitoring Left foot pain Mixed incontinence urge and stress Overactive bladder Asthma COVID-19 vaccine series completed Pulmonary embolism Arthritis Glaucoma GERD (gastroesophageal reflux disease) Hyperglycemia Myalgia Myositis Hypercholesterolemia Anxiety H/O esophageal reflux Overweight Primary osteoarthritis of both knees Fibromyalgia Appendicitis with abscess Urgency incontinence Colon cancer screening Uterine fibroid Pelvic pain Rectal pain HTN (hypertension) Hypercalcemia Vitamin D deficiency Multinodular thyroid COVID-19 HIV (human immunodeficiency virus infection) Surgical History H/O colonoscopy Hx of appendectomy Hx of hysterectomy Hx of tubal ligation Family History Father Thyroid cancer Mother Cirrhosis Hypertension Daughter Thyroid cancer Other Cancer of intestine Colon cancer Stomach cancer Social History Household Members: None Housing: Apartment Are you a primary lawn care technician to a significant other at home: No Do you presently have 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) Alcohol intake: current Alcohol intake frequency: holidays/special occasions only Patient Tobacco Use Status: Former Tobacco user Tobacco use type: Cigarette Years Smoked: 23 yrs Advance Directives Date on File: 08/05/21 service: No Current occupational status: retired Review of Systems Const Denies chills and Denies fever(s) Card Denies chest pain, Denies dyspnea and Denies dyspnea on exertion Resp Denies cough, Denies dyspnea and Denies dyspnea on exertion GI Denies hematochezia and Denies change in bowel habits Denies hematuria Musc Denies back pain and Denies limited range of motion Neuro Denies focal weakness and Denies convulsions Psych Denies depression and Denies mood swings Physical Exam Vital Signs: Last Vital Signs Pulse 62 01/30/25 13:26 BP 123/65 07/21/24 13:26 BMI result Body Mass Index 28.7 Const General: comfortable and no acute distress Orientation/consciousness: patient oriented x3 Neck Neck: Yes no lymphadenopathy Resp Auscultation: clear to auscultation bilaterally Cardio Rhythm: regular rhythm GI Palpation (GI): Soft to palpation, nontender and no guarding Neuro General: patient oriented x3 Assessment & Plan Assessment & Plan (1) Colon cancer screening: Code(s): Z12.11 - Encounter for screening for malignant neoplasm of colon Category: Medical Plan: She is due for her screening colonoscopy. I explained to her the technique of colonoscopy. I reviewed the risks including but not limited to bleeding and perforation, as well as the benefits and alternatives. She understands and wants to proceed . She seems to be at average risk for colon cancer. She is on Eliquis for a history of a PE. She is to hold this for 2 days prior to her colonoscopy. Coding Level of Care Code New Pt Level 3 (15347) Diagnoses Colon cancer screening Z12.11
== END 2024-07-21 13:55 | disposition home or self-care (01) ==
PROVIDERS: PCP Nurse Practitioner Primary Care; Visit Provider Surgery
DX: Z12.11 Encounter for screening for malignant neoplasm of colon (principal)
CPT/HCPCS: 99203

== ENCOUNTER → 2024-07-21 13:16 | Outpatient (BNVA) | payer MEDICARE, MEDICAID, SELFPAY | PROVIDERS: PCP Nurse Practitioner Primary Care; Visit Provider Surgery | DX: Z01.818 Encounter for other preprocedural examination (principal); Z86.711 Personal history of pulmonary embolism; Z79.01 Long term (current) use of anticoagulants | CPT/HCPCS: 99202 ==

== ENCOUNTER 2024-08-12 09:42 | Outpatient (AMB) | payer MEDICARE, MEDICAID, SELFPAY ==
[2024-08-12 09:50] VITALS: BP 119/62; PULSE 57; O2SAT 97; BMI 29.3
--- NOTE | 2024-08-12 09:50 | MHC.OFFVIS ---
Vital Signs 08/12/24 09:50 Height 5 ft Weight 150 lb BMI 29.3 BP 119/62 Blood Pressure Location Lt brachial Position Sitting Pulse 57 Pulse Source Doppler Pulse Oximetry (%) 97 Oxygen Delivery Method Room Air Intake Visit Reasons: Dyspnea Allergies cyclobenzaprine Allergy (Intermediate, Verified 08/12/24 09:56) Rash fluticasone [From Advair Diskus] Allergy (Intermediate, Verified 08/12/24 09:56) Swelling ibuprofen [From Motrin] Allergy (Intermediate, Verified 08/12/24 09:56) RASH salmeterol [From Advair Diskus] Allergy (Intermediate, Verified 08/12/24 09:56) Swelling lisinopril [LISINOPRIL] Adverse Reaction (Mild, Verified 08/12/24 09:56) Cough HPI HPI Dyspnea: Details: 69-year-old lady, with underlying history of HIV?on HAART, former 25+ pack-year smoker, quit 2007, followed for mild persistent asthma and allergies. Her symptoms are well controlled on Arnuity and albuterol MDI. Today she complains of mild bronchitic symptoms symptomatic with cough productive of yellowish sputum. She continues to use Zyrtec to control her allergy symptoms. [facility] Medical History (Updated 07/21/24 @ 13:48 by Miguel A Camejo MD) Encounter for medication monitoring Left foot pain Mixed incontinence urge and stress Overactive bladder Asthma COVID-19 vaccine series completed Pulmonary embolism Arthritis Glaucoma GERD (gastroesophageal reflux disease) Hyperglycemia Myalgia Myositis Hypercholesterolemia Anxiety H/O esophageal reflux Overweight Primary osteoarthritis of both knees Fibromyalgia Appendicitis with abscess Urgency incontinence Colon cancer screening Uterine fibroid Pelvic pain Rectal pain HTN (hypertension) Hypercalcemia Vitamin D deficiency Multinodular thyroid COVID-19 HIV (human immunodeficiency virus infection) Surgical History H/O colonoscopy Hx of appendectomy Hx of hysterectomy Hx of tubal ligation Family History Father Thyroid cancer Mother Cirrhosis Hypertension Daughter Thyroid cancer Other Cancer of intestine Colon cancer Stomach cancer Social History Household Members: None Housing: Apartment Are you a primary healthcare administrative assistant to a significant other at home: No 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) Alcohol intake: current Alcohol intake frequency: holidays/special occasions only Patient Tobacco Use Status: Former Tobacco user Tobacco use type: Cigarette Years Smoked: 23 yrs Advance Directives Date on File: 08/05/21 service: No Current occupational status: retired Review of Systems Const Denies daytime sleepiness, Denies excessive sweating, Denies fatigue, Denies fever(s), Denies lethargy, Denies malaise, Denies night sweats, Denies snoring and Denies weight loss Eyes Denies blurry vision and Denies itchy eyes ENT Denies nasal congestion, Denies post nasal drip, Denies sinus pain, Denies sinus pressure and Denies other ( Thrush) Card Denies chest pain, Denies pedal edema, Denies dyspnea, Denies orthopnea and Denies paroxysmal nocturnal dyspnea Resp Reports cough, Denies hemoptysis, Reports excessive phlegm production, Denies dyspnea, Denies snoring and Denies wheezing GI Denies abdominal pain and Denies heartburn Musc Denies myalgias, Denies arthralgias and Denies joint swelling Skin/Breast Denies rash Neuro Denies memory loss and Denies seizure-like activity Psych Denies abnormal sleep pattern, Denies anxiety and Denies memory loss Endo Denies excessive sweating, Denies fatigue and Denies heat intolerance Lino/Lymph Denies easy bruising Aller/Immun Denies itchy eyes, Denies seasonal rhinorrhea and Denies wheezing Physical Exam Vital Signs: Last Vital Signs Pulse 57 08/12/24 09:50 BP 119/62 08/12/24 09:50 Pulse Ox 97 08/12/24 09:50 Oxygen Delivery Method Room Air 08/12/24 09:50 BMI result Body Mass Index 29.3 Const General: no acute distress and alert Nutritional Appearance: not obese Orientation/consciousness: Other orientation findings ( oriented) HEENT Head: Yes atraumatic Eyes General: appearance normal, both eyes and all related structures Sclerae: sclerae normal EOM: EOMs intact bilaterally Neck Neck: Yes supple Lymphatic: no lymphadenopathy noted Resp Effort & Inspection: normal respiratory effort and no use of accessory muscles Auscultation: clear to auscultation bilaterally Cardio Rate: regular rate Rhythm: regular rhythm Heart sounds: no gallops, no murmurs and no rubs Skin General skin exam: other ( warm) Extrem General: No clubbing, No cyanosis and No edema Assessment & Plan Assessment & Plan (1) Mild persistent asthma: Code(s): J45.30 - Mild persistent asthma, uncomplicated Category: Medical Plan: Baseline well controlled on Arnuity and albuterol MDI. Continue current regimen. Mild bronchitic symptoms, will treat with a course of Z-Delfino. (2) Environmental allergies: Code(s): Z91.09 - Other allergy status, other than to drugs and biological substances Category: Medical Plan: Well controlled on Zyrtec and Flonase. Continue current regimen. Medications: New azithromycin For 250 mg dose pack: take 500 mg today (day 1), then 250 mg for 4 days (days 2-5) PO 6 tabs 0RF Coding Level of Care Code Est Pt Level 4 (14930) Diagnoses Mild persistent asthma J45.30 Environmental allergies Z91.09
== END 2024-08-12 10:16 | disposition home or self-care (01) ==
PROVIDERS: PCP Nurse Practitioner Primary Care; Visit Provider Internal Medicine Pulmonary Disease
DX: J45.30 Mild persistent asthma, uncomplicated (principal); Z91.09 Other allergy status, other than to drugs and biological substances
CPT/HCPCS: 99214

== ENCOUNTER → 2024-08-12 09:42 | Outpatient (BNVA) | payer MEDICARE, MEDICAID, SELFPAY | PROVIDERS: PCP Nurse Practitioner Primary Care; Visit Provider Internal Medicine Pulmonary Disease | DX: J45.30 Mild persistent asthma, uncomplicated (principal); Z91.09 Other allergy status, other than to drugs and biological substances | CPT/HCPCS: 99212 ==

== ENCOUNTER 2024-08-15 09:23 | Outpatient (REF) | payer MEDICARE, MEDICAID, SELFPAY ==
--- NOTE | ~2024-08-15 | US_ITS ---
CLINICAL HISTORY: N20.0 - Calculus of kidney Ultrasound kidneys. COMPARISON: None Technique: Real time sonographic imaging, including color-flow imaging, was performed by the quality control projectionist. Multiple hobbies and crafts sales representative static images were saved for review. FINDINGS: Right kidney: Cortical medullary differentiation is maintained. Normal color flow by Doppler. No calculus or focal parenchymal abnormality identified. No hydronephrosis. Right kidney size: 9.9 x 4.5 x 5.7 cm Left kidney: Cortical medullary differentiation is maintained. Normal color flow by Doppler. Simple renal cyst in the midportion measuring 1.1 x 0.8 x 0.9 cm. No hydronephrosis. Left kidney size: 11.7 x 6.3 x 6.2 cm IMPRESSION: 1. No evidence of renal obstruction. No renal calculus identified. 2. Simple left renal cyst in the midpole measuring up to 1.1 cm. This document has been electronically signed by: Steven Casillas MD on 08/15/2024 15:18:11
== END 2024-08-15 09:24 | disposition home or self-care (01) ==
LOC: HO.US 09:23
PROVIDERS: PCP Nurse Practitioner Primary Care; Visit Provider Nurse Practitioner Family
DX: N20.0 Calculus of kidney (principal)
CPT/HCPCS: 76775

== ENCOUNTER → 2024-08-15 09:25 | Outpatient (BNV) | payer MEDICARE, MEDICAID, SELFPAY | PROVIDERS: PCP Nurse Practitioner Primary Care; Visit Provider Radiology Diagnostic Radiology | DX: N28.1 Cyst of kidney, acquired (principal) | CPT/HCPCS: 76775 ==

== ENCOUNTER 2024-08-29 09:19 | Outpatient (AMB) | payer MEDICARE, MEDICAID, SELFPAY ==
--- NOTE | 2024-08-29 09:49 | A.OFFVIS_ITS ---
Intake Visit Reasons: 6m/US/PVR(set) Intake Note: Patient presents today for follow up on: OAB, Incontinence, uti symptoms, ultrasound results Imaging Completed: 08/15/24 Urology Medications: myrbetriq Blood Thinner: apixaban PVR: 59ml's Prepper Required: No Accompanied by: Self / Same As Patient Allergies cyclobenzaprine Allergy (Intermediate, Verified 08/29/24 10:13) Rash fluticasone [From Advair Diskus] Allergy (Intermediate, Verified 08/29/24 10:13) Swelling ibuprofen [From Motrin] Allergy (Intermediate, Verified 08/29/24 10:13) RASH salmeterol [From Advair Diskus] Allergy (Intermediate, Verified 08/29/24 10:13) Swelling lisinopril [LISINOPRIL] Adverse Reaction (Mild, Verified 08/29/24 10:13) Cough Medication List - Last Reviewed 08/29/24 by Rahat Frey acetaminophen 500 mg PO Q8H PRN albuterol sulfate 90 mcg/actuation 2 puffs PO Q4-6H PRN amlodipine 5 mg PO DAILY apixaban (Eliquis) 2.5 mg PO BID atorvastatin 20 mg PO DAILY bupropion HCl SR 150 mg PO BID carvedilol 6.25 mg PO BID cetirizine 10 mg PO DAILY PRN 30 days cholecalciferol (vitamin D3) (Vitamin D3) 50 mcg PO DAILY clonazepam 0.5 mg PO DAILY docusate sodium 100 mg PO DAILY dolutegravir (Tivicay) 1 tab PO DAILY emtricitabine-tenofovir alafen 200-25 mg (Descovy) 1 tab PO DAILY fenofibrate micronized 67 mg PO DAILY fluticasone furoate 100 mcg/actuation (Arnuity Ellipta) 1 inh inhalation DAILY fluticasone propionate 50 mcg/actuation intranasal hydrochlorothiazide 50 mg PO QAM ketotifen fumarate 0.025%(0.035%) 1 drp ophthalmic (eye) BID loratadine 10 mg PO DAILY PRN losartan 100 mg PO DAILY mirabegron ER (Myrbetriq) 50 mg PO DAILY 90 days anepzyfufprm-viza-icemc acid 18-400 mg-mcg 1 tab PO DAILY omeprazole 20 mg PO BID pregabalin (Lyrica) 200 mg PO BID simethicone 80 mg PO BID PRN sodium,potassium,mag sulfates 17.5-3.13-1.6 gram (Suprep Bowel Prep Kit) DILUTE; drink full amount early evening before AND next morning at least 2 hr before procedure; follow w 960 mL water PO HPI Comments Details: Alison is a very pleasant 69 year-old Mexican-speaking female who is a patient of Dr. Almaraz. She has a past medical history of mixed urinary incontinence, overactive bladder, asthma, pulmonary embolism on anticoagulation, arthritis, glaucoma, GERD, myalgia, hypercholesteremia, anxiety, fibromyalgia, hypertension, hypercalcemia, vitamin-D deficiency, myostitis, and HIV. She presents to the office today for follow-up of her ongoing lower urinary tract symptoms. In discussion with the patient today she reports to be doing and feeling well. She denies having had any bothersome urinary issues or concerns since her last office visit here. She reports compliance with Myrbetriq 50 mg daily and feels this has been helpful in episodes of urinary urgency and frequency she had been experiencing. Recent renal imaging results reviewed with the patient today 08/16 bilateral kidneys with no evidence of renal obstruction and or nephrolithiasis. Simple left renal cysts in the mid pole measuring 1.1 cm. In office urinalysis results reviewed with the patient today. PVR 59 mL. She discusses her upcoming colonoscopy. She currently denies urinary urgency, urinary frequency, nocturia, hematuria, dysuria, foul smelling urine, changes to urinary stream, flank pain, fever, and or chills. She otherwise offers no other issues or concerns at this time. [facility] Medical History Encounter for medication monitoring Left foot pain Mixed incontinence urge and stress Overactive bladder Asthma COVID-19 vaccine series completed Pulmonary embolism Arthritis Glaucoma GERD (gastroesophageal reflux disease) Hyperglycemia Myalgia Myositis Hypercholesterolemia Anxiety H/O esophageal reflux Overweight Primary osteoarthritis of both knees Fibromyalgia Appendicitis with abscess Urgency incontinence Colon cancer screening Uterine fibroid Pelvic pain Rectal pain HTN (hypertension) Hypercalcemia Vitamin D deficiency Multinodular thyroid COVID-19 HIV (human immunodeficiency virus infection) Surgical History H/O colonoscopy Hx of appendectomy Hx of hysterectomy Hx of tubal ligation Family History Father Thyroid cancer Mother Cirrhosis Hypertension Daughter Thyroid cancer Other Cancer of intestine Colon cancer Stomach cancer Social History Household Members: None Housing: Apartment Are you a primary health care specialist to a significant other at home: No Do you presently have 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) Alcohol intake: current Alcohol intake frequency: holidays/special occasions only Patient Tobacco Use Status: Former Tobacco user Tobacco use type: Cigarette Years Smoked: 23 yrs Advance Directives Date on File: 08/05/21 service: No Current occupational status: retired Review of Systems Const Reports as per HPI Eyes Reports as per HPI ENT Reports no additional complaints Card Reports as per HPI Resp Reports as per HPI GI Reports as per HPI Reports as per HPI Musc Reports no additional complaints Neuro Reports as per HPI Psych Reports as per HPI Endo Reports as per HPI Physical Exam Const General: cooperative, healthy appearing, comfortable, no acute distress, well developed, alert and awake Orientation/consciousness: patient oriented x3 Limitations: no limitations HEENT Head: Yes normal to inspection, Yes normocephalic and Yes atraumatic Ears: hearing grossly normal bilaterally Eyes General: appearance normal, both eyes and all related structures Neck Neck: Yes normal visual inspection and Yes trachea midline Chest Chest palpation & inspection: normal inspection of the chest Resp Effort & Inspection: normal respiratory effort and able to speak in complete sentences Cardio Rate: regular rate GI Inspection: Yes normal to inspection General: Yes no CVA tenderness Back/Spine/Pelvis Back: no CVA tenderness Skin General skin exam: no rashes or lesions noted Neuro General: patient oriented x3 Extrem General: Yes normal to inspection Psych Appearance: grossly normal and well kempt Mental Status: mental status grossly normal Speech and movement: Normal speech and movement present and Clear speech present Affect: normal affect Attitude: cooperative Thought process: Normal thought process present Thought content: Normal thought content present Insight: Fair insight present (Psych) Judgement: Fair judgement present (Psych) Office Procedures Post Void Residual Post Residual Void Post Void Residual (PVR): 59 [id number]-[id number] Void Residual by ultrasound Results AMB Urinalysis, Automated UA Leukoctes 0 Beverly/uL Last Edit by Rahat Frey on 08/29/24 10:04 UA Nitrite Last Edit by MediSapiensmio Frey on 08/29/24 10:04 UA Urobilinogen 0.2 mg/dL Last Edit by Keyword Rockstarbennie Frey on 08/29/24 10:04 UA Protein 0 mg/dL Last Edit by [employer]ner[employer] Environmentalhector on 08/29/24 10:04 UA pH 7.5 Last Edit by [employer] Environmentalhector on 08/29/24 10:04 UA Blood 0 Mejia/uL Last Edit by [employer] Environmentalhector on 08/29/24 10:04 UA Specific [place] 1.005 Last Edit by [employer] Environmentalhector on 08/29/24 10:04 UA Ketone Last Edit by [employer] Environmentalhector on 08/29/24 10:04 UA Bilirubin 0 mg/dL Last Edit by [employer] Environmentalhector on 08/29/24 10:04 UA Glucose 0 mg/dL Last Edit by [employer] Environmentalhector on 08/29/24 10:04 Results Reviewed Results Reviewed: Laboratory Last Values Urine pH (Auto) 7.5 08/29/24 10:00 Specific [place] (Auto) 1.005 08/29/24 10:00 Urine Protein (Auto) 0 mg/dL 08/29/24 10:00 Glucose (UA)(Auto) 0 mg/dL 08/29/24 10:00 Urine Blood (Auto) 0 Mejia/uL 08/29/24 10:00 Urine Bilirubin (Auto) 0 mg/dL 08/29/24 10:00 Urine Urobilinogen (Auto) 0.2 mg/dL 08/29/24 10:00 Leukocyte Esterase (Auto) 0 Beverly/uL 08/29/24 10:00 Date of Service: 08/15/24 Ultrasound kidneys. COMPARISON: None Technique: Real time sonographic imaging, including color-flow imaging, was performed by the hospital admitting clerk. Multiple community health representative static images were saved for review. FINDINGS: Right kidney: Cortical medullary differentiation is maintained. Normal color flow by Doppler. No calculus or focal parenchymal abnormality identified. No hydronephrosis. Right kidney size: 9.9 x 4.5 x 5.7 cm Left kidney: Cortical medullary differentiation is maintained. Normal color flow by Doppler. Simple renal cyst in the midportion measuring 1.1 x 0.8 x 0.9 cm. No hydronephrosis. Left kidney size: 11.7 x 6.3 x 6.2 cm IMPRESSION: 1. No evidence of renal obstruction. No renal calculus identified. 2. Simple left renal cyst in the midpole measuring up to 1.1 cm. Assessment & Plan Assessment & Plan (1) Renal cyst: Code(s): N28.1 - Cyst of kidney, acquired Category: Medical (2) Lower urinary tract symptoms: Code(s): R39.9 - Unspecified symptoms and signs involving the genitourinary system Category: Medical (3) Overactive bladder: Code(s): N32.81 - Overactive bladder Category: Medical (4) Mixed incontinence urge and stress: Code(s): N39.46 - Mixed incontinence Category: Medical Plan In office urinalysis results reviewed with the patient today; as noted above. PVR 59 mL. Recent renal imaging results reviewed with the patient today; as noted above. She currently denies any bothersome urinary issues or concerns. She reports be happy with current voiding parameters on 50 mg of Myrbetriq; will continue; refill provided. Will continue with surveillance monitoring. Will obtain renal ultrasound in 6 months. Follow-up in 6 months with imaging and PVR; or sooner with any issues, concerns, and or questions. Orders: Orders AMB Urinalysis Automated Today Z13.9 - Encounter for screening, unspecified AMB Post Void Residual by ultrasound Today N39.46 - Mixed incontinence US renal BI 6 Months N28.1 - Cyst of kidney, acquired Patient Instructions: The patient had an opportunity to ask questions regarding the treatment plan. All questions were answered. Physical exam, labs, and imaging were discussed and reviewed in detail. As well as risks, benefits, and discussion of treatment choices. No major barriers to understanding were identified. The patient expressed understanding and agreement with the above treatment plan. The patient was made aware they should contact our office by phone for worsening of their current condition, the appearance of new symptoms, or with any questions or concerns. Compliance is encouraged with any medications and follow up testing that is ordered. It is a privilege to be allowed the opportunity to participate in? your urological care.? Again, if you have any questions or concerns If you have any questions or concerns please do not hesitate to contact me. The office is [phone]. This note is constructed using voice recognition software. While every effort has been made to ensure accuracy filling machine set up mechanic errors may have been included. Yours sincerely, HOWARD Kaplan Coding Level of Care Code Est Pt Level 3 (02934) Complex EM visit Add On G2211 Diagnoses Renal cyst N28.1 Lower urinary tract symptoms R39.9 Overactive bladder N32.81 Mixed incontinence urge and stress N39.46 CPT Codes Post Residual Void - PVR CPT Code: 42685-Itui Void Residual by ultrasound ([id number])
== END 2024-08-29 10:18 | disposition home or self-care (01) ==
PROVIDERS: PCP Nurse Practitioner Primary Care; Visit Provider Nurse Practitioner Family
DX: N28.1 Cyst of kidney, acquired (principal); R39.9 Unspecified symptoms and signs involving the genitourinary system; N32.81 Overactive bladder; N39.46 Mixed incontinence; Z13.9 Encounter for screening, unspecified
CPT/HCPCS: 99213; G2211

== ENCOUNTER → 2024-08-29 09:19 | Outpatient (BNVA) | payer MEDICARE, MEDICAID, SELFPAY | PROVIDERS: PCP Nurse Practitioner Primary Care; Visit Provider Nurse Practitioner Family | DX: N28.1 Cyst of kidney, acquired (principal); N32.81 Overactive bladder; N39.46 Mixed incontinence; R39.9 Unspecified symptoms and signs involving the genitourinary system | CPT/HCPCS: 51798; 81003; 99212 ==

== ENCOUNTER 2024-09-02 11:02 | Day surgery (SDC) | payer MEDICARE, MEDICAID, SELFPAY ==
--- NOTE | 2024-08-31 13:13 | HO.ANESPROP2 ---
Documented by User: Echo Moreland NP 08/31/24 13:14 HPI - Anesthesia Eval Consult details Narrative: 69yo F for Colonoscopy with possible Polypectomy Eliquis for hx PE PMFSH Active Problems Active Problems: All Active Problems Renal cyst (Acute) Colon cancer screening (Acute) Dysuria (Acute) Sensation of pressure in bladder area (Acute) Lower urinary tract symptoms (Acute) Environmental allergies (Acute) Asthma (Acute) Arthritis (Acute) Anxiety (Acute) HTN (hypertension) (Acute) HIV carrier (Acute) Lumbar spondylosis (Acute) Mixed incontinence urge and stress (Acute) Overactive bladder (Acute) Mild persistent asthma (Acute) Pulmonary embolism (Chronic) Fibromyalgia (Acute) Urinary urgency (Acute) Hypercalcemia (Acute) Vitamin D deficiency (Acute) Multinodular thyroid (Acute) Past Medical History Medical History Encounter for medication monitoring Left foot pain Mixed incontinence urge and stress Overactive bladder Asthma COVID-19 vaccine series completed Pulmonary embolism Arthritis Glaucoma GERD (gastroesophageal reflux disease) Hyperglycemia Myalgia Myositis Hypercholesterolemia Anxiety H/O esophageal reflux Overweight Primary osteoarthritis of both knees Fibromyalgia Appendicitis with abscess Urgency incontinence Colon cancer screening Uterine fibroid Pelvic pain Rectal pain HTN (hypertension) Hypercalcemia Vitamin D deficiency Multinodular thyroid COVID-19 HIV (human immunodeficiency virus infection) Family History Family History Father Thyroid cancer Mother Cirrhosis Hypertension Daughter Thyroid cancer Other Cancer of intestine Colon cancer Stomach cancer Family history of problems with anesthesia: No Surgical History Surgical History H/O colonoscopy Hx of appendectomy Hx of hysterectomy Hx of tubal ligation History of Problems with Anesthesia: No Social History Social History Household Members: None Housing: Apartment Are you a primary hospice home care coordinator to a significant other at home: No Do you presently have 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) Alcohol intake: current Alcohol intake frequency: holidays/special occasions only Patient Tobacco Use Status: Former Tobacco user Tobacco use type: Cigarette Years Smoked: 23 yrs Use of substances other than those prescribed or required for medical reasons: No Are you DNR?: No Advance Directives: No Advance Directives Information Provided: Yes Advance Directives Date on File: 08/05/21 service: No Current occupational status: retired Meds Allergies Allergy/AdvReac Type Severity Reaction Status Date / Time cyclobenzaprine Allergy Intermediate Rash Verified 09/02/24 12:50 ibuprofen [From Motrin] Allergy Intermediate RASH Verified 09/02/24 12:50 salmeterol Allergy Intermediate Swelling Verified 09/02/24 12:50 [From Advair Diskus] lisinopril [LISINOPRIL] AdvReac Mild Cough Verified 09/02/24 12:50 Home Medications ?Medication ?Instructions ?Recorded ?Confirmed ?Last Taken ?Type acetaminophen 500 mg tablet 500 mg PO Q8H PRN Pain 04/11/20 07/21/24 Unknown History albuterol sulfate 90 mcg/actuation 2 puff PO Q4-6H PRN Wheezing 04/11/20 07/21/24 Unknown History aerosol inhaler atorvastatin 20 mg tablet 20 mg PO DAILY 04/11/20 07/21/24 Unknown History bupropion HCl 150 mg tablet,12 hr 150 mg PO BID 04/11/20 07/21/24 Unknown History sustained-release clonazepam 0.5 mg tablet 0.5 mg PO DAILY anxiety 04/11/20 07/21/24 Unknown History docusate sodium 100 mg capsule 100 mg PO DAILY 04/11/20 07/21/24 Unknown History fenofibrate micronized 67 mg 67 mg PO DAILY 04/11/20 07/21/24 Unknown History capsule multivitamin-ferrous 1 tab PO DAILY 04/11/20 07/21/24 Unknown History fumarate-folic acid 18 mg-400 mcg tablet omeprazole 20 mg capsule,delayed 20 mg PO BID 04/11/20 07/21/24 08/19/21 06:30 History release simethicone 80 mg chewable tablet 80 mg PO BID PRN Constipation 04/11/20 07/21/24 Unknown History losartan 100 mg tablet 100 mg PO DAILY 09/21/20 07/21/24 08/19/21 06:30 History pregabalin 200 mg capsule (Lyrica) 200 mg PO BID 09/21/20 07/21/24 Unknown History dolutegravir 50 mg tablet (Tivicay) 1 tab PO DAILY 07/29/21 07/21/24 Unknown History emtricitabine 200 mg-tenofovir 1 tab PO DAILY 07/29/21 07/21/24 Unknown History alafenamide fumarate 25 mg tablet (Descovy) carvedilol 6.25 mg tablet 6.25 mg PO BID 06/04/22 07/21/24 Unknown History cholecalciferol (vitamin D3) 50 50 mcg PO DAILY 06/04/22 07/21/24 Unknown History mcg (2,000 unit) capsule (Vitamin D3) hydrochlorothiazide 50 mg tablet 50 mg PO QAM 06/04/22 07/21/24 Unknown History ketotifen fumarate 0.025 % (0.035 1 drp ophthalmic (eye) BID 06/04/22 07/21/24 Unknown History %) eye drops amlodipine 5 mg tablet 5 mg PO DAILY 08/29/22 07/21/24 Unknown History fluticasone furoate 100 1 inh inhalation DAILY 08/25/23 07/21/24 Unknown History mcg/actuation blister powder for inhalation (Arnuity Ellipta) fluticasone propionate 50 intranasal 07/21/24 07/21/24 Unknown History mcg/actuation nasal spray,suspension loratadine 10 mg tablet 10 mg PO DAILY PRN allergies 07/21/24 07/21/24 Unknown History Assessment and Plan Assessment Anesthesia Assessment: Chart Reviewed Final Anesthetic Review Family History of Problems with Anesthesia: No History of Problems with Anesthesia: No Documented by User: Franca Adames MD 09/02/24 12:52 [facility] Past Medical History Medical History Encounter for medication monitoring Left foot pain Mixed incontinence urge and stress Overactive bladder Asthma COVID-19 vaccine series completed Pulmonary embolism Arthritis Glaucoma GERD (gastroesophageal reflux disease) Hyperglycemia Myalgia Myositis Hypercholesterolemia Anxiety H/O esophageal reflux Overweight Primary osteoarthritis of both knees Fibromyalgia Appendicitis with abscess Urgency incontinence Colon cancer screening Uterine fibroid Pelvic pain Rectal pain HTN (hypertension) Hypercalcemia Vitamin D deficiency Multinodular thyroid COVID-19 HIV (human immunodeficiency virus infection) Family History Family History Father Thyroid cancer Mother Cirrhosis Hypertension Daughter Thyroid cancer Other Cancer of intestine Colon cancer Stomach cancer Surgical History Surgical History H/O colonoscopy Hx of appendectomy Hx of hysterectomy Hx of tubal ligation Social History Social History Household Members: None Housing: Apartment Are you a primary hospice home care coordinator to a significant other at home: No Do you presently have 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) Alcohol intake: current Alcohol intake frequency: holidays/special occasions only Patient Tobacco Use Status: Former Tobacco user Tobacco use type: Cigarette Years Smoked: 23 yrs Use of substances other than those prescribed or required for medical reasons: No Are you DNR?: No Advance Directives: No Advance Directives Information Provided: Yes Advance Directives Date on File: 08/05/21 service: No Current occupational status: retired [employer] Allergies Allergy/AdvReac Type Severity Reaction Status Date / Time cyclobenzaprine Allergy Intermediate Rash Verified 09/02/24 12:50 ibuprofen [From Motrin] Allergy Intermediate RASH Verified 09/02/24 12:50 salmeterol Allergy Intermediate Swelling Verified 09/02/24 12:50 [From Advair Diskus] lisinopril [LISINOPRIL] AdvReac Mild Cough Verified 09/02/24 12:50 Home Medications ?Medication ?Instructions ?Recorded ?Confirmed ?Last Taken ?Type acetaminophen 500 mg tablet 500 mg PO Q8H PRN Pain 04/11/20 07/21/24 Unknown History albuterol sulfate 90 mcg/actuation 2 puff PO Q4-6H PRN Wheezing 04/11/20 07/21/24 Unknown History aerosol inhaler atorvastatin 20 mg tablet 20 mg PO DAILY 04/11/20 07/21/24 Unknown History bupropion HCl 150 mg tablet,12 hr 150 mg PO BID 04/11/20 07/21/24 Unknown History sustained-release clonazepam 0.5 mg tablet 0.5 mg PO DAILY anxiety 04/11/20 07/21/24 Unknown History docusate sodium 100 mg capsule 100 mg PO DAILY 04/11/20 07/21/24 Unknown History fenofibrate micronized 67 mg 67 mg PO DAILY 04/11/20 07/21/24 Unknown History capsule multivitamin-ferrous 1 tab PO DAILY 04/11/20 07/21/24 Unknown History fumarate-folic acid 18 mg-400 mcg tablet omeprazole 20 mg capsule,delayed 20 mg PO BID 04/11/20 07/21/24 08/19/21 06:30 History release simethicone 80 mg chewable tablet 80 mg PO BID PRN Constipation 04/11/20 07/21/24 Unknown History losartan 100 mg tablet 100 mg PO DAILY 09/21/20 07/21/24 08/19/21 06:30 History pregabalin 200 mg capsule (Lyrica) 200 mg PO BID 09/21/20 07/21/24 Unknown History dolutegravir 50 mg tablet (Tivicay) 1 tab PO DAILY 07/29/21 07/21/24 Unknown History emtricitabine 200 mg-tenofovir 1 tab PO DAILY 07/29/21 07/21/24 Unknown History alafenamide fumarate 25 mg tablet (Descovy) carvedilol 6.25 mg tablet 6.25 mg PO BID 06/04/22 07/21/24 Unknown History cholecalciferol (vitamin D3) 50 50 mcg PO DAILY 06/04/22 07/21/24 Unknown History mcg (2,000 unit) capsule (Vitamin D3) hydrochlorothiazide 50 mg tablet 50 mg PO QAM 06/04/22 07/21/24 Unknown History ketotifen fumarate 0.025 % (0.035 1 drp ophthalmic (eye) BID 06/04/22 07/21/24 Unknown History %) eye drops amlodipine 5 mg tablet 5 mg PO DAILY 08/29/22 07/21/24 Unknown History fluticasone furoate 100 1 inh inhalation DAILY 08/25/23 07/21/24 Unknown History mcg/actuation blister powder for inhalation (Arnuity Ellipta) fluticasone propionate 50 intranasal 07/21/24 07/21/24 Unknown History mcg/actuation nasal spray,suspension loratadine 10 mg tablet 10 mg PO DAILY PRN allergies 07/21/24 07/21/24 Unknown History Exam Airway Mallampati Class: II TM Dist: >3cm Neck ROM: Full Partial: Upper and Lower Heart: rrr Lungs: cta Assessment and Plan Assessment Anesthesia Assessment: Anesthesia Plan Discussed Final Anesthetic Review NPO: Yes ASA Class: III Final Preanesthetic Review: No Changes in Pt Med Stat, Meds/Allgs Chart Reviewed and Consent Obtained/Reviewed Patient Risk: Intermediate Procedure Risk: Low Anesthetic Plan Anesthetic Plan: MAC: Disposition: Standard PACU
[2024-08-31 13:52] VITALS: BMI 28.7
[2024-09-02 12:44] VITALS: BP 147/70; PULSE 54; RESP 16; TEMP 36.6; O2SAT 99; BMI 29.1
--- NOTE | 2024-09-02 12:55 | MHC.SHP ---
Pre-Procedural Eval Section A - 24 Hr Update-Section A only Date of Service: 09/02/24 Section B - Complete if H&P > 30 days Chief Complaint: screening Details of Present Illness: For screening colonoscopy, denies any GI complaints Relevant Family History (Specify if Yes): No Relevant Social History: None Present Medications: see Short Stay Collaborative assessment Medical History: Significant History (History of pulmonary embolism, hypertension, HIV) Allergies: Allergies Allergy/AdvReac Type Severity Reaction Status Date / Time cyclobenzaprine Allergy Intermediate Rash Verified 09/02/24 12:50 ibuprofen [From Motrin] Allergy Intermediate RASH Verified 09/02/24 12:50 salmeterol Allergy Intermediate Swelling Verified 09/02/24 12:50 [From Advair Diskus] lisinopril [LISINOPRIL] AdvReac Mild Cough Verified 09/02/24 12:50 Review of Systems Sugical H&P ROS: Negative: Constitution, Cardiovascular, Respiratory and Gastrointestinal Exam Surgical H&P Exam: Normal: Heart, Normal: Lungs and Normal: Abdomen Plan Diagnosis/Plan: Unchanged I have reviewed the history and physical and performed a pertinent physical examination on my patient. No changes have occurred unless specified. Time Spent With Patient Time: Total time managing care of this patient today ____ minutes.
[2024-09-02] MEDS: Lactated Ringers 1,000 ML 100 ML IVCONT (13:01)
[2024-09-02 13:33] VITALS: BP 103/54; PULSE 55; RESP 18; TEMP 36.1; O2SAT 97
--- NOTE | 2024-09-02 13:33 | W.PM.OPN ---
Operative Note Operative Note Date of Service: 09/02/24 Narrative: Preop diagnosis: colon cancer screen Postop diagnosis: 1.sigmoid divertoiculosis 2. internal and ext hemorrhoids Procedure: colonoscopy Surgeon: Miguel A Camejo MD The patient is a 69 year old female here for screening colonoscopy. She understood the technique of the planned procedure as was the risks, benefits, and alternatives. The patient was brought to the operating room and placed in left lateral decubitus position under monitored anesthesia care. A surgical time-out was done. A full digital rectal exam was done and this did not reveal any significant anal lesions. The tip of the Olympus colonoscope was gently introduced through the anal orifice advanced with insufflation all the way to the cecum. The cecum was intubated. The cecum was identified by visualization of the ileocecal valve as well as the appendiceal orifice. The cecal mucosa was unremarkable. The scope was gradually withdrawn with careful examination of the entire colonic mucosa being done with scope withdrawal. The patient had adequate bowel prep so it was unlikely that any lesion may have been missed. There was note of moderate diverticulosis of the sigmoid. The rectum was reached and there were no lesions seen. There were internal and external hemorrhoids anus. The scope was then withdrawn completely with desufflation The patient tolerated procedure well. There were no immediate complications. Her next colonoscopy may be in the next 10 years.
[2024-09-02 13:45] VITALS: BP 118/61; PULSE 61; RESP 18; O2SAT 98
[2024-09-02 14:00] VITALS: BP 122/64; PULSE 64; RESP 18; O2SAT 98
[2024-09-02 14:15] VITALS: BP 126/66; PULSE 55; RESP 18; TEMP 36.1; O2SAT 98
== END 2024-09-02 14:52 | disposition home or self-care (01) ==
PROVIDERS: PCP Nurse Practitioner Primary Care; Visit Provider Surgery
PROC: 0DBE8ZZ Excision of Large Intestine, Via Natural or Artificial Opening Endoscopic (ICD-10-PCS; CPT G0121; principal; 2024-09-02 13:30)
DX: Z12.11 Encounter for screening for malignant neoplasm of colon (principal); K57.30 Diverticulosis of large intestine without perforation or abscess without bleeding; K64.8 Other hemorrhoids; K64.4 Residual hemorrhoidal skin tags; B20 Human immunodeficiency virus [HIV] disease; K21.9 Gastro-esophageal reflux disease without esophagitis; I10 Essential (primary) hypertension; E78.00 Pure hypercholesterolemia, unspecified; I26.99 Other pulmonary embolism without acute cor pulmonale; J45.909 Unspecified asthma, uncomplicated; M79.7 Fibromyalgia; N39.46 Mixed incontinence; Z79.01 Long term (current) use of anticoagulants; Z79.51 Long term (current) use of inhaled steroids; Z79.899 Other long term (current) drug therapy; Z88.6 Allergy status to analgesic agent; Z88.8 Allergy status to other drugs, medicaments and biological substances; Z98.890 Other specified postprocedural states; Z87.891 Personal history of nicotine dependence
CPT/HCPCS: G0121; J2003; J2704

== ENCOUNTER → 2024-09-02 11:02 | Outpatient (BNV) | payer MEDICARE, MEDICAID, SELFPAY | PROVIDERS: PCP Nurse Practitioner Primary Care; Visit Provider Surgery | DX: Z12.11 Encounter for screening for malignant neoplasm of colon (principal); K57.90 Diverticulosis of intestine, part unspecified, without perforation or abscess without bleeding; K64.8 Other hemorrhoids | CPT/HCPCS: G0121 ==

== ENCOUNTER → 2024-09-15 09:25 | Outpatient (BNVA) | payer MEDICARE, MEDICAID, SELFPAY | PROVIDERS: PCP Nurse Practitioner Primary Care; Visit Provider Surgery | DX: K64.9 Unspecified hemorrhoids (principal); K57.90 Diverticulosis of intestine, part unspecified, without perforation or abscess without bleeding | CPT/HCPCS: 99211 ==

== ENCOUNTER 2024-09-19 06:40 | Outpatient (REF) | payer MEDICARE, MEDICAID, SELFPAY ==
[2024-09-19 06:52] LABS: MANUAL DIFF FLAG NO
[2024-09-19 07:08] LABS: Basophils Absolute Auto 0.1 X10*3/uL (0.0-0.2); Basophils Percent Auto 0.9 % (0-2); Eosinophils Absolute Auto 0.1 X10*3/uL (0.0-0.4); Eosinophils Percent Auto 1.5 % (0-4); Hematocrit 39.2 % (37.0-47.0); Hemoglobin 13.8 g/dl (12.0-16.0); Imm Gran Abs Auto 0.01 X10*3/uL (0.00-0.03); Imm Gran Pct Auto 0.2 % (0.0-0.4); Lymphocytes Absolute Auto 1.7 X10*3/uL (1.2-4.9); Lymphocytes Percent Auto 31.5 % (20-40); Mean Corpuscular HGB Conc 35.2 g/dl (31.0-35.0); Mean Corpuscular Hemoglobin 31.7 pg (27.0-33.0); Mean Corpuscular Volume 90.1 fL (80.0-98.0); Mean Platelet Volume 11.2 fL (9.4-12.3); Monocytes Absolute Auto 0.5 X10*3/uL (0.1-1.2); Monocytes Percent Auto 8.8 % (2-11); Neutrophils Absolute Auto 3.1 x10*3/uL (2.0-8.3); Neutrophils Percent Auto 57.1 % (45-73); Platelet Count 252 X10*3/uL (160-400); Red Blood Count 4.35 X10*6/uL (4.20-5.50); Red Cell Distribution Width 13.2 % (11.0-16.0); White Blood Count 5.5 X10*3/uL (4.8-10.8)
[2024-09-19 07:26] LABS: Alanine Aminotransferase 18 U/L (0-31); Albumin Level 4.2 g/dL (3.5-5.0); Alkaline Phosphatase 50 U/L (39-117); Anion Gap 13 (12-20); Aspartate Amino Transferase 25 U/L (5-31); Bilirubin Total 0.4 mg/dL (0.0-1.0); Blood Urea Nitrogen 10 mg/dL (9-16); Calcium 9.1 mg/dL (8.4-10.2); Carbon Dioxide 29 mmol/L (22-29); Chloride 105 mmol/L (96-108); Estimated Glomerular Filt Rate > 60; Glucose Random 136 mg/dL (60-115); Potassium 3.6 mmol/L (3.3-5.1); Sodium 143 mmol/L (135-145); Total Protein 7.1 g/dL (6.5-8.0)
[2024-09-19 14:08] LABS: CT PCR NOT DETECTED (Not Detect.); NG PCR NOT DETECTED (Not Detect.)
[2024-09-21 18:03] LABS: HIV RNA PCR Qn Copies 39 copies/mL (NOT DETECTED); HIV RNA PCR Qn Log Copies 1.59 (NOT DETECTED)
[2024-09-23 14:18] LABS: Absolute CD3 Count 1591 cells/uL (840-3060); Absolute CD4 Count 830 cells/uL (490-1740); Absolute CD8 Count 791 cells/uL (180-1170); Absolute Lymphocytes 1795 cells/uL (850-3900); CD4 CD8 Ratio 1.05 (0.86-5.00); Percent CD3 Cells 89 % (57-85); Percent CD4 Cells 46 % (30-61); Percent CD8 Cells 44 % (12-42)
== END 2024-09-19 06:41 | disposition home or self-care (01) ==
LOC: HO.LAB 06:40
PROVIDERS: PCP Nurse Practitioner Primary Care; Visit Provider Internal Medicine
DX: Z21 Asymptomatic human immunodeficiency virus [HIV] infection status (principal); Z11.3 Encounter for screening for infections with a predominantly sexual mode of transmission
CPT/HCPCS: 80053; 85025; 86359; 86360; 87491; 87536; 87591

== ENCOUNTER 2025-01-19 10:39 | Outpatient (AMB) | payer MEDICARE, MEDICAID, SELFPAY ==
--- NOTE | 2025-01-19 10:54 | A.OFFVIS_ITS ---
Intake Visit Reasons: 6m Allergies cyclobenzaprine Allergy (Intermediate, Verified 09/15/24 09:32) Rash ibuprofen (From Motrin) Allergy (Intermediate, Verified 09/15/24 09:32) RASH salmeterol (From Advair Diskus) Allergy (Intermediate, Verified 09/15/24 09:32) Swelling lisinopril (LISINOPRIL) Adverse Reaction (Mild, Verified 09/15/24 09:32) Cough HPI Comments Details: She was doing so-so. She had pain to back, neck, and shoulders today. Overall, fibromyalgia pain was well controlled with pregabalin. Pain was better some days than others, worse with rainy, humid, and cold weather. She was walking on treadmill at home a few times a week. No falls. Sleep was up and down. Her body pains started in 1997 and she was diagnosed with fibromyalgia. She has chronic whole body pain, L > R. Pain in jaw, neck, shoulders, back, lower back. LBP fluctuates. Losing strength in hands in opening jars. Joint and muscle pains, stiffness, sense of general weakness, anxiety, difficulty sleeping at night. Work up was normal, CT brain normal, L maxillary sinusitis. HIV under control. Her pains had initially responded well to tramadol. [facility] Medical History (Updated 01/13/25 @ 09:24 by Kane Rincon [facility]) Sinusitis Fibromyalgia Encounter for medication monitoring Left foot pain Mixed incontinence urge and stress Overactive bladder Asthma COVID-19 vaccine series completed Pulmonary embolism Arthritis Glaucoma GERD (gastroesophageal reflux disease) Hyperglycemia Myalgia Myositis Hypercholesterolemia Anxiety H/O esophageal reflux Overweight Primary osteoarthritis of both knees Fibromyalgia Appendicitis with abscess Urgency incontinence Colon cancer screening Uterine fibroid Pelvic pain Rectal pain HTN (hypertension) Hypercalcemia Vitamin D deficiency Multinodular thyroid COVID-19 HIV (human immunodeficiency virus infection) Surgical History H/O colonoscopy Hx of appendectomy Hx of hysterectomy Hx of tubal ligation Family History Father Thyroid cancer Mother Cirrhosis Hypertension Daughter Thyroid cancer Other Cancer of intestine Colon cancer Stomach cancer Social History Household Members: None Housing: Apartment Are you a primary career placement specialist to a significant other at home: No Do you 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 have 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) Alcohol intake: current Alcohol intake frequency: holidays/special occasions only Patient Tobacco Use Status: Former Tobacco user Tobacco use type: Cigarette Years Smoked: 23 yrs Advance Directives Date on File: 08/05/21 service: No Current occupational status: retired Review of Systems Const Denies chills, Denies daytime sleepiness, Reports difficulty sleeping, Denies fatigue, Denies fever(s), Denies frequent falls, Denies headache(s), Denies increased appetite, Denies poor appetite, Denies snoring, Denies weakness, Denies weight gain and Denies weight loss Eyes Denies loss of vision ENT Denies vertigo, Denies dizziness, Denies headache(s) and Reports neck pain Card Denies chest pain at rest, Denies chest pain with activity, Denies syncope, Denies leg edema, Denies palpitations, Denies dyspnea and Denies dyspnea on exertion Resp Denies cough, Denies dyspnea, Denies dyspnea on exertion and Denies snoring GI Denies abdominal pain, Denies constipation, Denies heartburn, Denies diarrhea and Denies nausea Denies urinary frequency, Denies urinary incontinence and Denies urinary urgency Musc Denies abnormal gait, Reports back pain, Reports myalgias, Reports arthralgias, Reports neck pain, Denies numbness and Denies tingling Neuro Denies abnormal gait, Denies vertigo, Denies dizziness, Denies syncope, Denies frequent falls, Denies headache(s), Denies lack of coordination, Denies loss of vision, Denies memory loss, Denies numbness, Denies Other visual disturbances, Denies restless legs, Denies seizure-like activity, Denies tingling, Denies paresthesias, Denies tremor(s) and Denies weakness Psych Denies anxiety, Denies depression, Denies auditory hallucinations, Denies memory loss and Denies visual hallucinations Endo Denies fatigue and Denies palpitations Physical Exam Const Other: General Appearance:? normal, in no acute distress. Heart:? S1, S2 normal, no murmurs. Lungs:? clear anteriorly and posteriorly. Musculoskeletal:? normal. Extremities:? no edema. Psych:? alert, oriented, cognitive function intact, cooperative with exam. Neuro Other: Abnormal Neurological Findings:?none.? Mental Status: alert and oriented X 3. Normal attention, orientation, memory, and affect. Cranial Nerves: Pupils are equal, round, and reactive to light. External ocular muscles are intact. Visual lamb are full, no ptosis. Face is symmetrical, no facial weakness or droop. Facial sensations are normal. Tongue protrudes in midline. Palate elevates symmetrically. Shoulder shrugging is normal Motor Examination: Normal muscle tone, bulk and strength. No atrophy or fasciculations. No drift of the extended upper extremities. DTR 2+. Plantars are flexor. Straight Leg Raisin degrees. Sensory Exam: Normal light touch, temperature, pinprick, vibration, and joint- position sensations. Rhomberg sign is absent. Coordination: No ataxia. No titubation. Applop-pc-okqw, gzez-badj-cexj test, and rapid alternating movements were normal. Gait Exam: Within normal limits. Cerebellar Signs: Ofpmex-gl-aimp and kmkq-sm-ticl is normal. No dysdiadochokinesia. Extrapyramidal System: No tremor, rigidity with normal facial expressions. No bradykinesia. No bradyphrenia. Normal arm swing and posture. No propulsion or retropulsion. Speech: Normal. No dysphasia or dysarthria. Assessment & Plan Assessment & Plan (1) Fibromyalgia: Code(s): M79.7 - Fibromyalgia Category: Medical Plan: Continue pregabalin 200mg 1 capsule twice a day. Medications: New pregabalin 200 mg PO BID 60 caps 5RF 30 days Discontinued pregabalin Discontinued Reason: Order 200 mg PO BID 30 days 60 caps 0RF Coding Level of Care Code Est Pt Level 4 (14341) Diagnoses Fibromyalgia M79.7
--- OUTSIDE RECORDS SUMMARY | 2025-01-19 11:25 | XMS_ITS | Encounter Summary ---
Author Organization [facility] Address [address] [place] [address] Phone Care Team Providers Care Tester Food Products Name Role Phone Unknown, Unknown Primary Care Provider Ahsan tran Encounter Details Date Type Department Care Team (Late st Contact Info) Description 11/11/2018 Ancillary Orders [facility] [address] [place] [address] Osman Bo MD [address] [place] [address] [place] [address] [email or web address] Social History Tobacco Use Types Packs/Day Years Used Date Smoking Tobacco: Never Assessed Comments Unknown Sex and Gender Information Value Date Recorded Sex Assigned at Not on file Legal Sex Female 12:20 PM EDT Gender Identity Not on file Sexual Orientation Not on file documented as of this encounter Plan of Treatment Not on file documented as of this encounter Visit Diagnoses Not on filedocumented in this encounter Care Teams Tester Food Products Relationship Specialty Start Date End Date Unknown, Unknown, PCP - General 11/05/18 documented as of this encounter Additional Source Comments The information contained in this document represents components of the legal health record. It is not the complete legal health record.[facility]
== END 2025-01-19 11:30 | disposition home or self-care (01) ==
LOC: HO.HSM 10:40
PROVIDERS: PCP Nurse Practitioner Primary Care; Referring Provider Nurse Practitioner Family; Visit Provider Registered Nurse
DX: M79.7 Fibromyalgia (principal)
CPT/HCPCS: 99214

== ENCOUNTER → 2025-01-19 10:39 | Outpatient (BNVA) | payer MEDICARE, MEDICAID, SELFPAY | PROVIDERS: PCP Nurse Practitioner Primary Care; Referring Provider Nurse Practitioner Family; Visit Provider Registered Nurse | DX: M79.7 Fibromyalgia (principal) | CPT/HCPCS: 99212 ==

== ENCOUNTER 2025-01-30 13:00 | Outpatient (AMB) | payer MEDICARE, MEDICAID, SELFPAY ==
--- OUTSIDE RECORDS SUMMARY | 2025-01-30 13:07 | XMS_ITS | Encounter Summary ---
Author Organization [facility] Address [address] [place] [address] Phone Care Team Providers Care Pre Owned Sales Consultant Name Role Phone Unknown, Unknown Primary Care Provider Ahsan tran Encounter Details Date Type Department Care Team (Late st Contact Info) Description 11/11/2018 Ancillary Orders [facility] [address] [place] [address] Osman Bo MD [address] [place] [address] [place] [address] [email or web address] Social History Tobacco Use Types Packs/Day Years [...] on filedocumented in this encounter Care Teams Pre Owned Sales Consultant Relationship Specialty Start Date End Date Unknown, Unknown, PCP - General 11/05/18 documented as of this encounter Additional Source Comments The information contained in this document represents components of the legal health record. It is not the complete legal health record.[facility]
--- NOTE | 2025-01-30 13:17 | MHC.OFFVIS ---
Vital Signs 01/30/25 13:18 Height 5 ft Weight 153 lb BMI 29.9 BP 104/60 Blood Pressure Location Lt brachial Position Sitting Pulse 54 Pulse Source Pulse Oximeter Pulse Oximetry (%) 96 Intake Visit Reasons: dyspnea Allergies cyclobenzaprine Allergy (Intermediate, Verified 01/30/25 13:21) Rash ibuprofen (From Motrin) Allergy (Intermediate, Verified 01/30/25 13:21) RASH salmeterol (From Advair Diskus) Allergy (Intermediate, Verified 01/30/25 13:21) Swelling lisinopril (LISINOPRIL) Adverse Reaction (Mild, Verified 01/30/25 13:21) Cough HPI HPI dyspnea: Details: 69-year-old lady, with underlying history of HIV?on HAART, former 25+ pack-year smoker, quit 2007, followed for mild persistent asthma and allergies. Her symptoms are well controlled on Arnuity and albuterol MDI. She complains of mild bronchitic symptoms symptomatic with cough productive of yellowish sputum. She continues to use Zyrtec to control her allergy symptoms. [facility] Medical History (Updated 01/13/25 @ 09:24 by Kane Rincon [facility]) Sinusitis Fibromyalgia Encounter for medication monitoring Left foot pain Mixed incontinence urge and stress Overactive bladder Asthma COVID-19 vaccine series completed Pulmonary embolism Arthritis Glaucoma GERD (gastroesophageal reflux disease) Hyperglycemia Myalgia Myositis Hypercholesterolemia Anxiety H/O esophageal reflux Overweight Primary osteoarthritis of both knees Fibromyalgia Appendicitis with abscess Urgency incontinence Colon cancer screening Uterine fibroid Pelvic pain Rectal pain HTN (hypertension) Hypercalcemia Vitamin D deficiency Multinodular thyroid COVID-19 HIV (human immunodeficiency virus infection) Surgical History H/O colonoscopy Hx of appendectomy Hx of hysterectomy Hx of tubal ligation Family History Father Thyroid cancer Mother Cirrhosis Hypertension Daughter Thyroid cancer Other Cancer of intestine Colon cancer Stomach cancer Social History Household Members: None Housing: Apartment Are you a primary managed care specialist to a significant other at home: No 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) Alcohol intake: current Alcohol intake frequency: holidays/special occasions only Patient Tobacco Use Status: Former Tobacco user Tobacco use type: Cigarette Years Smoked: 23 yrs Advance Directives Date on File: 08/05/21 service: No Current occupational status: retired Review of Systems Const Denies daytime sleepiness, Denies excessive sweating, Denies fatigue, Denies fever(s), Denies lethargy, Denies malaise, Denies night sweats, Denies snoring and Denies weight loss Eyes Denies blurry vision and Denies itchy eyes ENT Denies nasal congestion, Denies post nasal drip, Denies sinus pain, Denies sinus pressure and Denies other ( Thrush) Card Denies chest pain, Denies pedal edema, Denies dyspnea, Denies orthopnea and Denies paroxysmal nocturnal dyspnea Resp Reports cough, Denies hemoptysis, Reports excessive phlegm production, Denies dyspnea, Denies snoring and Denies wheezing GI Denies abdominal pain and Denies heartburn Musc Denies myalgias, Denies arthralgias and Denies joint swelling Skin/Breast Denies rash Neuro Denies memory loss and Denies seizure-like activity Psych Denies abnormal sleep pattern, Denies anxiety and Denies memory loss Endo Denies excessive sweating, Denies fatigue and Denies heat intolerance Lino/Lymph Denies easy bruising Aller/Immun Denies itchy eyes, Denies seasonal rhinorrhea and Denies wheezing Physical Exam Vital Signs: Last Vital Signs Pulse 54 01/30/25 13:18 BP 104/60 01/30/25 13:18 Pulse Ox 96 01/30/25 13:18 BMI result Body Mass Index 29.9 Const General: no acute distress and alert Nutritional Appearance: not obese Orientation/consciousness: Other orientation findings ( oriented) HEENT Head: Yes atraumatic Eyes General: appearance normal, both eyes and all related structures Sclerae: sclerae normal EOM: EOMs intact bilaterally Neck Neck: Yes supple Lymphatic: no lymphadenopathy noted Resp Effort & Inspection: normal respiratory effort and no use of accessory muscles Auscultation: clear to auscultation bilaterally Cardio Rate: regular rate Rhythm: regular rhythm Heart sounds: no gallops, no murmurs and no rubs Skin General skin exam: other ( warm) Extrem General: No clubbing, No cyanosis and No edema Assessment & Plan Assessment & Plan (1) Asthma: Code(s): J45.909 - Unspecified asthma, uncomplicated Category: Medical Plan: Baseline well controlled on Arnuity and albuterol MDI. Continue current regimen. Now with bronchitic exacerbation, will treat with a course of azithromycin. (2) Environmental allergies: Code(s): Z91.09 - Other allergy status, other than to drugs and biological substances Category: Medical Plan: Well controlled on as needed Flonase and Zyrtec. Continue current regimen. Medications: New azithromycin For 250 mg dose pack: take 500 mg today (day 1), then 250 mg for 4 days (days 2-5) PO 6 tabs 0RF Coding Level of Care Code Est Pt Level 4 (62631) Complex EM visit Add On G2211 Diagnoses Asthma J45.909 Environmental allergies Z91.09
[2025-01-30 13:18] VITALS: BP 104/60; PULSE 54; O2SAT 96; BMI 29.9
== END 2025-01-30 13:36 | disposition home or self-care (01) ==
LOC: HO.HPS 13:01
PROVIDERS: PCP Nurse Practitioner Primary Care; Visit Provider Internal Medicine Pulmonary Disease
DX: J45.909 Unspecified asthma, uncomplicated (principal); Z91.09 Other allergy status, other than to drugs and biological substances
CPT/HCPCS: 99214; G2211

== ENCOUNTER → 2025-01-30 13:00 | Outpatient (BNVA) | payer MEDICARE, MEDICAID, SELFPAY | PROVIDERS: PCP Nurse Practitioner Primary Care; Visit Provider Internal Medicine Pulmonary Disease | DX: B20 Human immunodeficiency virus [HIV] disease (principal); J45.31 Mild persistent asthma with (acute) exacerbation; Z91.09 Other allergy status, other than to drugs and biological substances; Z79.899 Other long term (current) drug therapy | CPT/HCPCS: 99212 ==

== ENCOUNTER 2025-02-22 10:24 | Outpatient (REF) | payer MEDICARE, MEDICAID, SELFPAY ==
--- NOTE | ~2025-02-22 | US_ITS ---
CLINICAL HISTORY: N28.1 - Cyst of kidney, acquired US of kidneys Comparison: None provided Findings: Right kidney is normal in size, echogenicity and morphology, 10.3 cm in length. No calculus, mass or hydronephrosis. Left kidney is normal in size, echogenicity and morphology, 12.3 cm in length. No calculus or hydronephrosis. Simple likely parapelvic cyst midpole 1.2 cm, stable. Limited color Doppler demonstrates unremarkable bilateral blood flow. Impression: Stable left renal cyst. This document has been electronically signed by: Odette Velez MD on 02/22/2025 14:12:04
--- OUTSIDE RECORDS SUMMARY | 2025-02-22 12:12 | XMS_ITS | Clinical Summary ---
Author Organization [facility] Address [address] [place] [address] Phone Care Team Providers Care Comber Operator Name Role Phone Unknown, Unknown Primary Care Provider Ahsan tran Social History Tobacco Use Types Packs/Day Years Used Date Smoking Tobacco: Never Assessed Education Answer Date Recorded Are you interested in more education? Not on yael e 10/17/2022 Are you concerned about learning? Not on file 10/17/2022 No 10/17/2022 No 10/17/2022 Digital Access Answer Date Recorded No 11/18/2022 No 11/18/2022 No 11/18/2022 Reliable internet access at home? Not on file 11/18/2022 Device with a working camera? Not on file Comments Unknown Sex and Gender Information Value Date Recorded Sex Assigned at Not on file Legal Sex Female 12:20 PM EDT Gender Identity Not on file Sexual Orientation Not on file Plan of Treatment Not on file Medical Devices Not on file Insurance MEDICARE PART A & B [facility] MEDICARE PART A & B Member Subscriber Plan / Payer (Ef fective 2008-Present) Name:Alison Irwin Member ID:[id number] Relation to Subscriber:Self Name:Alison Irwin Subscriber ID:[id number] Payer ID:[id number] Group ID:Not on file Type:Medicare Address: [employer] [address] MEDICARE PART A & B [facility] PART [facility] & [facility] PART A & [place] [facility] MEDIC[facility] PART A & [place] PART A & B [facility] Care Teams Comber Operator Relationship Specialty Start Date End Date Unknown, Unknown, MD PÉREZ - General 11/05/18 Additional Source Comments The information contained in this document represents components of the legal health record. It is not the complete legal health record.[facility]
--- OUTSIDE RECORDS SUMMARY | 2025-02-22 12:12 | XMS_ITS | Encounter Summary ---
Author Organization [facility] Address [address] [place] [address] Phone Care Team Providers Care Manager Insurance Name Role Phone Unknown, Unknown Primary Care Provider Ahsan tran Encounter Details Date Type Department Care Team (Late st Contact Info) Description 11/11/2018 Ancillary Orders [facility] [address] [place] [address] Osman Bo MD [address] [place] [address] [place] [address] [email or web address] Social History Tobacco Use Types Packs/Day Years [...] on filedocumented in this encounter Care Teams Manager Insurance Relationship Specialty Start Date End Date Unknown, Unknown, PCP - General 11/05/18 documented as of this encounter Additional Source Comments The information contained in this document represents components of the legal health record. It is not the complete legal health record.[facility]
--- OUTSIDE RECORDS SUMMARY | 2025-02-22 12:12 | XMS_ITS | Encounter Summary ---
Author Organization [facility] Address [address] [place] [address] Phone Care Team Providers Care Calender Machine Operator Name Role Phone Unknown, Unknown Primary Care Provider Ahsan tran Encounter Details Date Type Department Care Team (Late st Contact Info) Description 11/11/2018 Ancillary Orders [facility] [address] [place] [address] [place] [address] Osman Bo MD [address] [place] [address] [email or web address] Social History Tobacco Use Types Packs/Day Years Used Date Smoking Tobacco: Never Assessed Comments Unknown Sex and Gender Information Value Date Recorded Sex Assigned at Not on file Legal Sex Female 12:20 PM EDT Gender Identity Not on file Sexual Orientation Not on file documented as of this encounter Plan of Treatment Not on file documented as of this encounter Results * Holter Monitor 24 Hours (11/11/2018 12:31 PM EDT) Anatomical Region Laterality Modality Heart Other Narrative 11/11/2018 1:10 PM EDT 24-hour monitor: Baseline rhythm is sinus with a minimum heart rate of average 66 bpm. Rare PACs and PVCs present. There is no diary returned. There are no patient event markers. Impression: Normal 24-hour monitor. No diary returned. Maximum heart rate not exceeding 100 bpm during the 24 hours is suggestive of some degree of sinus node disease. Procedure Note Osman Bo MD - 11/11/2018 24-hour monitor: Baseline rhythm is sinus with a minimum heart rate ofaverage 66 bpm. Rare PACs and PVCs present. There is no diary returned.There are no patient event markers. Impression: Normal 24-hour monitor. No diary returned. Maximum heartrate not exceeding 100 bpm during the 24 hours is suggestive of somedegree of sinus node disease. us Osman Bo MD [facility]OL[facility] Final Result documented in this encounter Visit Diagnoses Diagnosis Palpitations Palpitations documented in this encounter Care Teams Calender Machine Operator Relationship Specialty Start Date End Date Unknown, Unknown, MD PCP - General 11/05/18 documented as of this encounter Additional Source Comments The information contained in this document represents components of the legal health record. It is not the complete legal health record.[facility]
== END 2025-02-22 10:25 | disposition home or self-care (01) ==
LOC: HO.US 10:24
PROVIDERS: PCP Nurse Practitioner Primary Care; Visit Provider Nurse Practitioner Family
DX: N28.1 Cyst of kidney, acquired (principal)
CPT/HCPCS: 76775

== ENCOUNTER → 2025-02-22 10:26 | Outpatient (BNV) | payer MEDICARE, MEDICAID, SELFPAY | PROVIDERS: PCP Nurse Practitioner Primary Care; Visit Provider Radiology Diagnostic Radiology | DX: N28.1 Cyst of kidney, acquired (principal) | CPT/HCPCS: 76775 ==

== ENCOUNTER 2025-04-24 06:40 | Outpatient (REF) | payer MEDICARE, MEDICAID, SELFPAY ==
--- OUTSIDE RECORDS SUMMARY | 2025-04-24 06:44 | XMS_ITS | Encounter Summary ---
Author Organization [facility] Address [address] [place] [phone] Phone Care Team Providers Care Windshield Technician Name Role Phone Unknown, Unknown Primary Care Provider Ahsan trna Encounter Details Date Type Department Care Team (Late st Contact Info) Description 11/11/2018 Ancillary Orders [facility] [address] [place] [address] Osman Bo MD [address] [place] [address] [place] [address] [email or web address] Social History Tobacco Use Types Packs/Day Years [...] on filedocumented in this encounter Care Teams Windshield Technician Relationship Specialty Start Date End Date Unknown, Unknown, PCP - General 11/05/18 documented as of this encounter Additional Source Comments The information contained in this document represents components of the legal health record. It is not the complete legal health record.[facility]
--- OUTSIDE RECORDS SUMMARY | 2025-04-24 06:44 | XMS_ITS | Encounter Summary ---
Author Organization [facility] Address [address] [place] [address] Phone Care Team Providers Care Sash Repairer Name Role Phone Unknown, Unknown Primary Care Provider Ahsan tran Encounter Details Date Type Department Care Team (Late st Contact Info) Description 11/11/2018 Ancillary Orders [facility] [address] [place] [address] [place] [address] Osman Bo MD [address] [place] [address] maria [email or web address] Palpitations Social History Tobacco Use Types Packs/Day [...] Palpitations documented in this encounter Care Teams Sash Repairer Relationship Specialty Start Date End Date Unknown, Unknown, MD PCP - General 11/05/18 documented as of this encounter Additional Source Comments The information contained in this document represents components of the legal health record. It is not the complete legal health record.[facility]
--- OUTSIDE RECORDS SUMMARY | 2025-04-24 06:44 | XMS_ITS | Clinical Summary ---
Author Organization [facility] Address [address] [place] [address] Phone Care Team Providers Care Client Technical Specialist Name Role Phone Unknown, Unknown Primary Care [...] file Insurance MEDICARE PART A & B [facility] MEDICARE PART A & B Member Subscriber Plan / Payer (Ef fective 2008-Present) Name:Alison Irwin Member ID:[id number] Relation to Subscriber:Self Name:Alison Irwin Subscriber ID:[id number] Payer ID:[id number] Group ID:Not on file Type:Medicare Address: [employer] [address] MEDICARE PART A & B [facility] MED[facility] PART A & [facility] MED[facility] PART A & B [place] [facility] PART [facility] & [facility] [place] [place] [facility] Care Teams Client Technical Specialist Relationship Specialty Start Date End Date Unknown, Unknown, MD PÉREZ - General 11/05/18 Additional Source Comments The information contained in this document represents components of the legal health record. It is not the complete legal health record.[facility]
[2025-04-24 07:04] LABS: MANUAL DIFF FLAG NO
[2025-04-24 07:53] LABS: Hematocrit 39.8 % (37.0-47.0); Hemoglobin 13.5 g/dl (12.0-16.0); Imm Gran Abs Auto 0.01 X10*3/uL (0.00-0.03); Imm Gran Pct Auto 0.2 % (0.0-0.4); Lymphocytes Absolute Auto 1.4 X10*3/uL (1.2-4.9); Mean Corpuscular HGB Conc 33.9 g/dl (31.0-35.0); Mean Corpuscular Hemoglobin 30.8 pg (27.0-33.0); Mean Corpuscular Volume 90.7 fL (80.0-98.0); NRBC Abs Auto 0.000 X10*3/uL (0.0-0.012); NRBC Pct Auto 0.0 /100WBC (0.0-0.2); Platelet Count 243 X10*3/uL (160-400); Red Blood Count 4.39 X10*6/uL (4.20-5.50); White Blood Count 5.1 X10*3/uL (4.8-10.8)
[2025-04-24 08:20] LABS: Alanine Aminotransferase 16 U/L (0-31); Albumin Level 4.5 g/dL (3.5-5.0); Alkaline Phosphatase 60 U/L (39-117); Anion Gap 10 (12-20); Aspartate Amino Transferase 27 U/L (5-31); Blood Urea Nitrogen 18 mg/dL (9-16); Calcium 9.4 mg/dL (8.4-10.2); Carbon Dioxide 30 mmol/L (22-29); Chloride 104 mmol/L (96-108); Cholesterol 139 mg/dL (<200); Estimated Glomerular Filt Rate > 60; HDL Cholesterol 44 mg/dL (>40); Potassium 3.4 mmol/L (3.3-5.1); Sodium 141 mmol/L (135-145); Total Protein 7.4 g/dL (6.5-8.0); Triglycerides 97 mg/dL (<150)
[2025-04-24 08:42] LABS: ~HepC Num1 0.07 S/CO (0.00-0.79); ~Hepatitis C Antibody Nonreactive (Nonreactive)
[2025-04-24 08:44] LABS: Syphilis Screen Reactive (Nonreactive)
[2025-04-24 11:52] LABS: Reflex LDLD? No
[2025-04-25 15:08] LABS: HIV RNA PCR Qn Copies <20 DETECTED copies/mL (NOT DETECTED); HIV RNA PCR Qn Log Copies <1.30 DETECTED (NOT DETECTED)
[2025-04-27 04:23] LABS: TS Negative Control Passed; TS Panel A 0; TS Panel B 0; TS Positive Control Passed; TSpotTB Negative (Negative)
[2025-04-28 10:15] LABS: T.Pallidum Particle Agg Test Inconclusive (Nonreactive)
[2025-04-29 15:30] LABS: Absolute CD3 Count 1240 cells/uL (840-3060); Absolute CD8 Count 594 cells/uL (180-1170); Percent CD3 Cells 88 % (57-85); Percent CD8 Cells 42 % (12-42)
== END 2025-04-24 06:41 | disposition home or self-care (01) ==
LOC: HO.LAB 06:40
PROVIDERS: PCP Nurse Practitioner Primary Care; Visit Provider Internal Medicine
DX: B20 Human immunodeficiency virus [HIV] disease (principal); I10 Essential (primary) hypertension; Z11.59 Encounter for screening for other viral diseases; Z20.2 Contact with and (suspected) exposure to infections with a predominantly sexual mode of transmission; Z11.1 Encounter for screening for respiratory tuberculosis
CPT/HCPCS: 36415; 80053; 80061; 85025; 86359; 86360; 86481; 86592; 86780; 86803; 87536

== ENCOUNTER 2025-05-02 13:30 | Outpatient (AMB) | payer MEDICARE, MEDICAID, SELFPAY ==
--- NOTE | 2025-05-02 13:31 | MHC.OFFVIS ---
Intake Visit Reasons: 6m/US Intake Note: Patient is present for 6M/US Urology Medication: MYRETRIQ Antibiotic Allergy:NONE Blood Thinner:APIXABAN Fabric Finisher Required: No Allergies cyclobenzaprine Allergy (Intermediate, Verified 05/02/25 13:34) Rash ibuprofen (From Motrin) Allergy (Intermediate, Verified 05/02/25 13:34) RASH salmeterol (From Advair Diskus) Allergy (Intermediate, Verified 05/02/25 13:34) Swelling lisinopril (LISINOPRIL) Adverse Reaction (Mild, Verified 05/02/25 13:34) Cough HPI Comments Details: Alison is a very pleasant 69 year-old female who is a patient of Dr. Almaraz. She has a past medical history of mixed urinary incontinence, overactive bladder, asthma, pulmonary embolism on anticoagulation, arthritis, glaucoma, GERD, myalgia, hypercholesteremia, anxiety, fibromyalgia, hypertension, hypercalcemia, vitamin-D deficiency, myostitis, and HIV. She presents to the office today for follow-up of her ongoing lower urinary tract symptoms and renal cyst. In discussion with the patient today she reports to be doing and feeling well. She denies having had any bothersome urinary issues or concerns since her last office visit here. She reports compliance with Myrbetriq 50 mg daily and feels this has been helpful in episodes of urinary urgency and frequency she had been experiencing. Recent renal imaging results reviewed with the patient today 03/16 bilateral kidneys are normal in size and echotexture. Simple peripelvic cyst mid pole 1.2 cm per radiology report. In office urinalysis results reviewed with the patient today. She currently denies urinary urgency, urinary frequency, nocturia, hematuria, dysuria, foul smelling urine, changes to urinary stream, flank pain, fever, and or chills. She otherwise offers no other issues or concerns at this time. [facility] Medical History Sinusitis Fibromyalgia Encounter for medication monitoring Left foot pain Mixed incontinence urge and stress Overactive bladder Asthma COVID-19 vaccine series completed Pulmonary embolism Arthritis Glaucoma GERD (gastroesophageal reflux disease) Hyperglycemia Myalgia Myositis Hypercholesterolemia Anxiety H/O esophageal reflux Overweight Primary osteoarthritis of both knees Fibromyalgia Appendicitis with abscess Urgency incontinence Colon cancer screening Uterine fibroid Pelvic pain Rectal pain HTN (hypertension) Hypercalcemia Vitamin D deficiency Multinodular thyroid COVID-19 HIV (human immunodeficiency virus infection) Surgical History H/O colonoscopy Hx of appendectomy Hx of hysterectomy Hx of tubal ligation Family History Father Thyroid cancer Mother Cirrhosis Hypertension Daughter Thyroid cancer Other Cancer of intestine Colon cancer Stomach cancer Social History Household Members: None Housing: Apartment Are you a primary care management assistant to a significant other at home: No Do you presently have visiting nurse or other home services: Yes (MINE CAPTAIN) Alcohol intake: current Alcohol intake frequency: holidays/special occasions only Patient Tobacco Use Status: Former Tobacco user Tobacco use type: Cigarette Years Smoked: 23 yrs Advance Directives Date on File: 08/05/21 service: No Current occupational status: retired Review of Systems Const All systems reviewed & are unremarkable except as noted in HPI and below Physical Exam Const General: cooperative, healthy appearing, comfortable, no acute distress, well developed, alert and awake Orientation/consciousness: patient oriented x3 Limitations: no limitations HEENT Head: Yes normal to inspection, Yes normocephalic and Yes atraumatic Ears: hearing grossly normal bilaterally Eyes General: appearance normal, both eyes and all related structures Neck Neck: Yes normal visual inspection and Yes trachea midline Chest Chest palpation & inspection: normal inspection of the chest Resp Effort & Inspection: normal respiratory effort and able to speak in complete sentences Cardio Rate: regular rate GI Inspection: Yes normal to inspection General: Yes no CVA tenderness Back/Spine/Pelvis Back: no CVA tenderness Skin General skin exam: no rashes or lesions noted Neuro General: patient oriented x3 Extrem General: Yes normal to inspection Psych Appearance: grossly normal and well kempt Mental Status: mental status grossly normal Speech and movement: Normal speech and movement present and Clear speech present Affect: normal affect Attitude: cooperative Thought process: Normal thought process present Thought content: Normal thought content present Insight: Fair insight present (Psych) Judgement: Fair judgement present (Psych) Results AMB Urinalysis, Automated UA Leukoctes 0 Beverly/uL Last Edit by JESSICA العلي on 05/02/25 13:50 UA Nitrite Negative Last Edit by JESSICA العلي on 05/02/25 13:50 UA Urobilinogen 0.2 mg/dL Last Edit by Christian Mckee [facility] on 05/02/25 13:50 UA Protein 0 mg/dL Last Edit by Christian Mckee [facility] on 05/02/25 13:50 UA pH 6.0 Last Edit by Christian Mckee [facility] on 05/02/25 13:50 UA Blood 0 Mejia/uL Last Edit by Christian Mckee [facility] on 05/02/25 13:50 UA Specific [place] 1.005 Last Edit by Christian Mckee [facility] on 05/02/25 13:50 UA Ketone Negative Last Edit by Christian Mckee [facility] on 05/02/25 13:50 UA Bilirubin 0 mg/dL Last Edit by Christian Mckee [facility] on 05/02/25 13:50 UA Glucose 0 mg/dL Last Edit by Christian Mckee [facility] on 05/02/25 13:50 Results Reviewed Results Reviewed: Laboratory Last Values Urine pH (Auto) 6.0 05/02/25 13:47 Specific [place] (Auto) 1.005 05/02/25 13:47 Urine Protein (Auto) 0 mg/dL 05/02/25 13:47 Glucose (UA)(Auto) 0 mg/dL 05/02/25 13:47 Urine Ketones (Auto) Negative 05/02/25 13:47 Urine Blood (Auto) 0 Mejia/uL 05/02/25 13:47 Urine Nitrite (Auto) Negative 05/02/25 13:47 Urine Bilirubin (Auto) 0 mg/dL 05/02/25 13:47 Urine Urobilinogen (Auto) 0.2 mg/dL 05/02/25 13:47 Leukocyte Esterase (Auto) 0 Beverly/uL 05/02/25 13:47 Date of Service: 02/22/25 Procedure(s): US renal BI Findings: Right kidney is normal in size, echogenicity and morphology, 10.3 cm in length. No calculus, mass or hydronephrosis. Left kidney is normal in size, echogenicity and morphology, 12.3 cm in length. No calculus or hydronephrosis. Simple likely parapelvic cyst midpole 1.2 cm, stable. Limited color Doppler demonstrates unremarkable bilateral blood flow. Impression: Stable left renal cyst. Assessment & Plan Assessment & Plan (1) Renal cyst: Code(s): N28.1 - Cyst of kidney, acquired Category: Medical (2) Lower urinary tract symptoms: Code(s): R39.9 - Unspecified symptoms and signs involving the genitourinary system Category: Medical (3) Overactive bladder: Code(s): N32.81 - Overactive bladder Category: Medical (4) Mixed incontinence urge and stress: Code(s): N39.46 - Mixed incontinence Category: Medical Plan In office urinalysis results reviewed with the patient today; as noted above. Recent renal imaging results reviewed with the patient today; as noted above. She currently denies any bothersome urinary issues or concerns. She reports be happy with current voiding parameters on 50 mg of Myrbetriq; will continue; refill provided. Will continue with surveillance monitoring. Follow-up in 6 months with [facility]; or sooner with any issues, concerns, and or questions. Orders: Orders AMB Urinalysis Automated Today Z13.9 - Encounter for screening, unspecified Patient Instructions: The patient had an opportunity to ask questions regarding the treatment plan. All questions were answered. Physical exam, labs, and imaging were discussed and reviewed in detail. As well as risks, benefits, and discussion of treatment choices. No major barriers to understanding were identified. The patient expressed understanding and agreement with the above treatment plan. The patient was made aware they should contact our office by phone for worsening of their current condition, the appearance of new symptoms, or with any questions or concerns. Compliance is encouraged with any medications and follow up testing that is ordered. It is a privilege to be allowed the opportunity to participate in? your urological care.? Again, if you have any questions or concerns If you have any questions or concerns please do not hesitate to contact me. The office is [phone]. This note is constructed using voice recognition software. While every effort has been made to ensure accuracy head counselor errors may have been included. Yours sincerely, HOWARD Kaplan Coding Level of Care Code Est Pt Level 3 (27668) Complex EM visit Add On G2211 Diagnoses Renal cyst N28.1 Lower urinary tract symptoms R39.9 Overactive bladder N32.81 Mixed incontinence urge and stress N39.46
--- OUTSIDE RECORDS SUMMARY | 2025-05-02 15:05 | XMS_ITS | Encounter Summary ---
Author Organization [facility] Address [address] [place] [address] Phone Care Team Providers Care Framing Consultant Name Role Phone Unknown, Unknown Primary Care Provider Ahsan tran Encounter Details Date Type Department Care Team (Late st Contact Info) Description 11/11/2018 Ancillary Orders [facility] [address] [place] [address] Osman Bo MD [address] [place] [address] [place] [address] [email or web address] [email or web address] Social History Tobacco Use Types Packs/Day Years [...] on filedocumented in this encounter Care Teams Framing Consultant Relationship Specialty Start Date End Date Unknown, Unknown, PCP - General 11/05/18 documented as of this encounter Additional Source Comments The information contained in this document represents components of the legal health record. It is not the complete legal health record.[facility]
--- OUTSIDE RECORDS SUMMARY | 2025-05-02 15:05 | XMS_ITS | Clinical Summary ---
Author Organization [employer] [facility] Address [address] [place] [phone] Phone Care Team Providers Care Expense Analyst Name Role Phone Unknown, Unknown Primary Care [...] Insurance MEDICARE PART A & B [facility] MEDICARE PART A & B Member Subscriber Plan / Payer (Ef fective 2008-Present) Name:Alison Irwin Member ID:[id number] Relation to Subscriber:Self Name:Alison Irwin Subscriber ID:[id number] Payer ID:[id number] Group ID:Not on file Type:Medicare Address: [employer] [address] MEDICARE PART A & B [facility] MED[facility] PART A & [facility] MEDICARE PART A & B [place] [facility]ICARE PART A & B [facility] MEDICARE PART A & [place] MEDIC[place] PART A & B [facility] Care Teams Expense Analyst Relationship Specialty Start Date End Date Unknown, Unknown, MD PÉREZ - General 11/05/18 Additional Source Comments The information contained in this document represents components of the legal health record. It is not the complete legal health record.[facility]
--- OUTSIDE RECORDS SUMMARY | 2025-05-02 15:05 | XMS_ITS | Encounter Summary ---
Author Organization [facility] Address [address] [place] [address] Phone Care Team Providers Care Metal Door Assembler Name Role Phone Unknown, Unknown Primary Care Provider Ahsan tran Encounter Details Date Type Department Care Team (Late st Contact Info) Description 11/11/2018 Ancillary Orders [facility] [address] [place] [address] [place] [address] Osman Bo MD [address] [place] [address] marai [email or web address] Palpitations Social History Tobacco Use Types Packs/Day [...] Palpitations documented in this encounter Care Teams Metal Door Assembler Relationship Specialty Start Date End Date Unknown, Unknown, MD PCP - General 11/05/18 documented as of this encounter Additional Source Comments The information contained in this document represents components of the legal health record. It is not the complete legal health record.[facility]
== END 2025-05-02 14:04 | disposition home or self-care (01) ==
LOC: HO.HUSH 13:31
PROVIDERS: PCP Nurse Practitioner Primary Care; Visit Provider Nurse Practitioner Family
DX: N28.1 Cyst of kidney, acquired (principal); R39.9 Unspecified symptoms and signs involving the genitourinary system; N32.81 Overactive bladder; N39.46 Mixed incontinence; Z13.9 Encounter for screening, unspecified
CPT/HCPCS: 99213; G2211

== ENCOUNTER → 2025-05-02 13:30 | Outpatient (BNVA) | payer MEDICARE, MEDICAID, SELFPAY | PROVIDERS: PCP Nurse Practitioner Primary Care; Visit Provider Nurse Practitioner Family | DX: N39.46 Mixed incontinence (principal); N28.1 Cyst of kidney, acquired; N32.81 Overactive bladder; R39.9 Unspecified symptoms and signs involving the genitourinary system | CPT/HCPCS: 81003; 99212 ==

== ENCOUNTER 2025-06-01 09:09 | Outpatient (AMB) | payer MEDICARE, MEDICAID, SELFPAY ==
--- NOTE | 2025-06-01 09:28 | MHC.OFFVIS ---
Vital Signs 06/01/25 09:29 Height 5 ft Weight 153 lb BMI 29.9 BP 108/57 L Blood Pressure Location Lt brachial Position Sitting Pulse 56 Pulse Source Pulse Oximeter Pulse Oximetry (%) 97 Oxygen Delivery Method Room Air Intake Visit Reasons: dyspnea Allergies cyclobenzaprine Allergy (Intermediate, Verified 06/01/25 09:33) Rash ibuprofen (From Motrin) Allergy (Intermediate, Verified 06/01/25 09:33) RASH salmeterol (From Advair Diskus) Allergy (Intermediate, Verified 06/01/25 09:33) Swelling lisinopril (LISINOPRIL) Adverse Reaction (Mild, Verified 06/01/25 09:33) Cough HPI HPI dyspnea: Details: 70-year-old lady, with underlying history of HIV?on HAART, former 25+ pack-year smoker, quit 2007, followed for mild persistent asthma and allergies. Her symptoms are well controlled on Arnuity and albuterol MDI. She denies recent exacerbations. She continues to use Zyrtec to control her allergy symptoms. [facility] Medical History Sinusitis Fibromyalgia Encounter for medication monitoring Left foot pain Mixed incontinence urge and stress Overactive bladder Asthma COVID-19 vaccine series completed Pulmonary embolism Arthritis Glaucoma GERD (gastroesophageal reflux disease) Hyperglycemia Myalgia Myositis Hypercholesterolemia Anxiety H/O esophageal reflux Overweight Primary osteoarthritis of both knees Fibromyalgia Appendicitis with abscess Urgency incontinence Colon cancer screening Uterine fibroid Pelvic pain Rectal pain HTN (hypertension) Hypercalcemia Vitamin D deficiency Multinodular thyroid COVID-19 HIV (human immunodeficiency virus infection) Surgical History H/O colonoscopy Hx of appendectomy Hx of hysterectomy Hx of tubal ligation Family History Father Thyroid cancer Mother Cirrhosis Hypertension Daughter Thyroid cancer Other Cancer of intestine Colon cancer Stomach cancer Social History Household Members: None Housing: Apartment Are you a primary customer care manager to a significant other at home: No Do you presently have visiting nurse or other home services: Yes (FEATURES REPORTER) Alcohol intake: current Alcohol intake frequency: holidays/special occasions only Patient Tobacco Use Status: Former Tobacco user Tobacco use type: Cigarette Years Smoked: 23 yrs Advance Directives Date on File: 08/05/21 service: No Current occupational status: retired Review of Systems Const Denies daytime sleepiness, Denies excessive sweating, Denies fatigue, Denies fever(s), Denies lethargy, Denies malaise, Denies night sweats, Denies snoring and Denies weight loss Eyes Denies blurry vision and Denies itchy eyes ENT Denies nasal congestion, Denies post nasal drip, Denies sinus pain, Denies sinus pressure and Denies other ( Thrush) Card Denies chest pain, Denies pedal edema, Denies dyspnea, Denies orthopnea and Denies paroxysmal nocturnal dyspnea Resp Denies cough, Denies hemoptysis, Denies excessive phlegm production, Denies dyspnea, Denies snoring and Denies wheezing GI Denies abdominal pain and Denies heartburn Musc Denies myalgias, Denies arthralgias and Denies joint swelling Skin/Breast Denies rash Neuro Denies memory loss and Denies seizure-like activity Psych Denies abnormal sleep pattern, Denies anxiety and Denies memory loss Endo Denies excessive sweating, Denies fatigue and Denies heat intolerance Lino/Lymph Denies easy bruising Aller/Immun Denies itchy eyes, Denies seasonal rhinorrhea and Denies wheezing Physical Exam Vital Signs: Last Vital Signs Pulse 56 06/01/25 09:29 BP 108/57 L 06/01/25 09:29 Pulse Ox 97 06/01/25 09:29 Oxygen Delivery Method Room Air 06/01/25 09:29 BMI result Body Mass Index 29.9 Const General: no acute distress and alert Nutritional Appearance: not obese Orientation/consciousness: Other orientation findings ( oriented) HEENT Head: Yes atraumatic Eyes General: appearance normal, both eyes and all related structures Sclerae: sclerae normal EOM: EOMs intact bilaterally Neck Neck: Yes supple Lymphatic: no lymphadenopathy noted Resp Effort & Inspection: normal respiratory effort and no use of accessory muscles Auscultation: clear to auscultation bilaterally Cardio Rate: regular rate Rhythm: regular rhythm Heart sounds: no gallops, no murmurs and no rubs Skin General skin exam: other ( warm) Extrem General: No clubbing, No cyanosis and No edema Assessment & Plan Assessment & Plan (1) Asthma: Code(s): J45.909 - Unspecified asthma, uncomplicated Category: Medical Plan: Well controlled on Arnuity and albuterol MDI. Continue current regimen. (2) Environmental allergies: Code(s): Z91.09 - Other allergy status, other than to drugs and biological substances Category: Medical Plan: Well controlled on Zyrtec and Flonase. Continue current regimen. Medications: New albuterol sulfate 90 mcg/actuation 2 puffs PO Q4-6H PRN 1 ea 1RF Wheezing Coding Level of Care Code Est Pt Level 4 (77419) Diagnoses Asthma J45.909 Environmental allergies Z91.09
[2025-06-01 09:29] VITALS: BP 108/57; PULSE 56; O2SAT 97; BMI 29.9
== END 2025-06-01 09:51 | disposition home or self-care (01) ==
LOC: HO.HPS 09:10
PROVIDERS: PCP Nurse Practitioner Primary Care; Visit Provider Internal Medicine Pulmonary Disease
DX: J45.909 Unspecified asthma, uncomplicated (principal); Z91.09 Other allergy status, other than to drugs and biological substances
CPT/HCPCS: 99214

== ENCOUNTER → 2025-06-01 09:09 | Outpatient (BNVA) | payer MEDICARE, MEDICAID, SELFPAY | PROVIDERS: PCP Nurse Practitioner Primary Care; Visit Provider Internal Medicine Pulmonary Disease | DX: J45.909 Unspecified asthma, uncomplicated (principal); Z91.09 Other allergy status, other than to drugs and biological substances; Z87.891 Personal history of nicotine dependence | CPT/HCPCS: 99212 ==

== ENCOUNTER 2025-06-02 09:35 | Outpatient (REF) | payer MEDICARE, MEDICAID, SELFPAY ==
--- NOTE | ~2025-06-02 | MM_ITS ---
EXAMINATION: DXA BONE DENSITY AXIAL HISTORY: m89.9 TECHNIQUE: [employer] Dual energy absorptiometry (DEXA) of the lumbar spine, total left hip, and femoral neck was performed. COMPARISON: Comparison is made with the prior examination dated 04/09/2023. FINDINGS: The bone mineral density of the lumbar spine is 1.068 g/cm2, corresponding to a T-score of -0.9, and a Z-score of 0.6. This is indicative of normal bone mineral density. This represents a BMD change of 2.1% compared to the prior exam. This is not statistically significant. The bone mineral density of the left total hip is 0.991 g/cm2, corresponding to a T-score of -0.1, and a Z-score of 1.2. This is indicative of normal bone mineral density.- This represents a BMD change of 0.8% compared to the prior exam. This is not statistically significant. The bone mineral density of the left femoral neck is 0.899 g/cm2, corresponding to a T-score of -1.0, and a Z-score of 0.6. This is indicative of normal bone mineral density. This represents a BMD change of 1.1% compared to the prior exam. FRACTURE RISK: The FRAX index suggests a ten year probability of major osteoporotic fracture of 4.8%, and of hip fracture 0.8%. MM/XR DEXA axial skeleton IMPRESSION: Based on bone mineral density, and according to World Health Organization (WHO) criteria, the diagnosis is consistent with normal bone mineral density. Statistically, 68% of repeat scans fall within 1 SD (+/- 0.010 g/cm2 for AP spine L1-L4) and 1 SD (+/- 0.012 g/cm2 for femur total) FRAX is a trademark of the [employer]'s [place] for Metabolic Bone Disease, a World Health Organization (WHO) Collaborating Center. Electronically signed by: David Sharif MD 06/02/2025 10:16 AM [facility]
--- NOTE | ~2025-06-02 | MM_ITS ---
EXAMINATION: MM SCREENING DIGITAL BREAST TOMOSYNTHESIS, BILATERAL CLINICAL INFORMATION: Screening. Asymptomatic. COMPARISON: Mammography: Comparison is made with available priors TECHNIQUE: Digital breast mammography with tomosynthesis is performed in both the craniocaudal and mediolateral oblique views along with computer-aided detection (CAD). FINDINGS: There are scattered areas of fibroglandular density. There are no significant masses, abnormal calcifications, or other abnormalities. MM/MM tomosynthesis screening BI IMPRESSION: No mammographic evidence of malignancy. ASSESSMENT: BI-RADS Category 1: Negative RECOMMENDATION: Routine annual mammography screening. 1 year F/U This examination should not preclude the clinical evaluation of a suspicious palpable abnormality. This patient's information was entered into a reminder system with a target due date for their next mammogram. Electronically signed by: Meghan Wiley DO 06/06/2025 02:13 PM [facility]
== END 2025-06-02 09:36 | disposition home or self-care (01) ==
LOC: HO.MAMMO 09:35
PROVIDERS: PCP Nurse Practitioner Primary Care; Visit Provider Internal Medicine
DX: Z12.31 Encounter for screening mammogram for malignant neoplasm of breast (principal); M85.80 Other specified disorders of bone density and structure, unspecified site; Z78.0 Asymptomatic menopausal state
CPT/HCPCS: 77063; 77067; 77080

== ENCOUNTER → 2025-06-02 10:00 | Outpatient (BNV) | payer MEDICARE, MEDICAID, SELFPAY | PROVIDERS: PCP Nurse Practitioner Primary Care; Visit Provider Radiology Diagnostic Radiology | DX: E28.39 Other primary ovarian failure (principal) | CPT/HCPCS: 77080 ==